=== PATIENT | male | born 1960 | race Caucasian/White ===

== ENCOUNTER 2024-01-22 09:10 | Inpatient (IN) | payer BC, SELFPAY ==
--- NOTE | 2024-01-22 | ECG_ITS ---
Test Reason : tachycardia Blood Pressure : / mmHG Vent. Rate : 106 BPM Atrial Rate : 106 BPM P-R Int : 128 ms QRS Dur : 084 ms QT Int : 310 ms P-R-T Axes : 049 -10 027 degrees QTc Int : 411 ms Sinus tachycardia Otherwise normal ECG No previous ECGs available Referred By: Generic ED Physician Electronically Signed By:SYLVIA BARNES MD
--- NOTE | ~2024-01-22 | XR_ITS ---
EXAMINATION: XR CHEST CLINICAL INFORMATION: NG tube placement. COMPARISON: CT abdomen/pelvis done earlier the same day. TECHNIQUE: Frontal view of the chest was obtained. FINDINGS: Enterogastric tube with the tip in the region of the gastric fundus. Redemonstration of dilated upper abdominal bowel loops. No airspace consolidation. No pleural effusion or pneumothorax. Unremarkable cardiomediastinal silhouette. XR/XR chest 1V IMPRESSION: 1. Enterogastric tube with the tip in the region of the gastric fundus. 2. Redemonstration of dilated upper abdominal bowel loops. Electronically signed by: Victor Hugo Li MD 01/22/2024 07:38 PM [facility]
--- NOTE | ~2024-01-22 | CT_ITS ---
EXAMINATION: CT ABDOMEN AND PELVIS WITH CONTRAST CLINICAL INFORMATION: Abdominal pain COMPARISON: None available. TECHNIQUE: Multidetector volumetric images were obtained from the superior aspect of the liver through the pubic symphysis following administration 85 mL of Omnipaque 350 intravenous contrast. Sagittal and coronal reformatted images were obtained on the technologist's workstation. Oral contrast: No This CT examination was performed using dose optimization techniques as appropriate, variously including the following: *Automated exposure control *Adjustment of mA and/or kV according to patient size (this includes techniques or standardized protocols for targeted exams where dose is matched to indication/reason for exam; i.e. extremities or head) *Use of iterative reconstruction technique DLP: 603 mGy-cm FINDINGS: LUNG BASES: The visualized lung bases are unremarkable. LIVER, GALLBLADDER, AND BILIARY TREE: The liver is normal in size, shape, and attenuation. No focal hepatic lesion or biliary ductal dilatation is present. The gallbladder is unremarkable with no evidence of radiopaque gallstones, gallbladder wall thickening, or obvious pericholecystic inflammatory changes. PANCREAS: Unremarkable. SPLEEN: Unremarkable. ADRENAL GLANDS: Unremarkable. KIDNEYS AND URETERS: No calcification or suspicious mass or hydronephrosis. There is a small simple cyst in the lower pole left kidney at 6 mm which no further workup is needed. BLADDER: Unremarkable. GASTROINTESTINAL TRACT: Abnormal. There is a bowel obstruction present. Dilated small and large bowel is observed, extending down to the sigmoid colon, where a solid mass is encountered. 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 Colonoscopy advised. ABDOMINAL WALL: No significant hernia is appreciated. LYMPH NODES: There is some duskiness and heterogeneity in the perisigmoid fat discrete nodes are not seen. A few small subcentimeter left para-aortic nodes are observed. VASCULAR: There are atherosclerotic but not aneurysmal. PELVIC VISCERA: Unremarkable. OSSEOUS STRUCTURES: Degenerative change in the spine. CT/CT abdomen pelvis w IV con IMPRESSION: Sigmoid mass as described above, with proximal large and small bowel obstruction. Malignancy suspected until proven otherwise. Colonoscopy is advised. Fleischner guidelines were followed. Electronically signed by: Ramesh Huerta MD 01/22/2024 02:22 PM [facility]
[2024-01-22 09:32] VITALS: BP 120/92; PULSE 113; RESP 20; TEMP 36.4; O2SAT 99; BMI 22.0
--- NOTE | 2024-01-22 09:59 | ED_ITS ---
HPI - Abdominal Pain General Chief Complaint: Abdominal Pain Stated Complaint: Constipation, SOB Time Seen by Provider: 01/22/24 09:52 Source: patient Mode of arrival: ambulatory Limitations: no limitations History of Present Illness HPI narrative: THIS IS A VERY PLEASANT 62 YEARS OLD MALE PRESENTED TO THE EMERGENCY DEPARTMENT COMPLAINING OF BLOATING POOR P.O. INTAKE NAUSEA SINCE DATE. HE HAS A HISTORY OF ALCOHOL ABUSE BUT STP DRINKING FOR 2 WEEKS MD elicited complaint: abdominal pain Pertinent past history: other (BLOATING) Onset (ago): week(s) (2) Pain Consistency: constant Quality: cramping Migration to: no migration Exacerbating factors: nothing Associated symptoms: nausea Related Data Home Medications ?Medication ?Instructions ?Recorded ?Confirmed multivitamin 1 tab PO DAILY 01/22/24 01/22/24 Allergies Allergy/AdvReac Type Severity Reaction Status Date / Time No Known Allergies Allergy Verified 01/22/24 09:34 Review of Systems Eyes: Reports no additional eye complaints Cardiovascular: Reports no additional cardiovascular complaints Gastrointestinal: Reports as per HPI and Reports no additional gastrointestinal complaints [facility] Social History Social History Advance Directives: No Advance Directives Information Provided: Yes Physical Exam ED Vital Signs: Vital Signs - 24 hr 01/22/24 09:32 01/22/24 12:15 01/22/24 14:33 Temperature 97.5 F 98.2 F Pulse Rate 113 H 100 89 Respiratory Rate 20 12 13 Blood Pressure 120/92 H 122/76 123/71 Pulse Oximetry 99 98 97 Oxygen Delivery Method Room Air Room Air BMI result Body Mass Index 22.0 NO ACUTE DISTRESS Const General: cooperative Nutritional Appearance: average body habitus Limitations: no limitations HENMT Head: Yes normal to inspection Throat: Yes posterior oropharynx normal Neck Neck: Yes normal visual inspection Chest Chest palpation & inspection: normal inspection of the chest Resp Auscultation: clear to auscultation bilaterally Cardio Jugular venous distension: no JVD Rate: regular rate GI Inspection: Yes normal to inspection Palpation (GI): Soft to palpation Auscultation: normal bowel sounds Skin General skin exam: no rashes or lesions noted and elasticity normal Course Reevaluation(s) Reevaluation #1: CT SCAN OF THE ABDOMEN AND PELVIS SHOWED A SIGMOID MASS WITH PROXIMAL LARGE AND SMALL BOWEL OBSTRUCTION SPOKE WITH SURGERY Time: 14:43 Medical Decision Making Medical Decision Making MDM Narrative: PATIENT PRESENTED WITH BLOATING AND POOR P.O. INTAKE WILL CHECK LABS CT Differential Diagnosis Differential Diagnoses: The differential diagnosis associated with the presentation includes ASCITES/COLITIS/DIVERTICULITIS Admission/Observation Consideration of admission/observation: Escalation of care including admission/observation considered Consult Healthcare Provider Management of the patient was discussed with: [employer] BOX Lab Data MDM Lab Attestation statement: I reviewed the patient's lab results. 01/22/24 10:06 01/22/24 10:06 Labs: Lab Results 01/22/24 Range/Units 10:06 WBC 12.4 H (4.8-10.8) X10*3/uL RBC 5.36 (4.60-5.80) X10*6/uL Hgb 18.3 H (14.0-18.0) g/dl Hct 52.6 H (42.0-52.0) % MCV 98.1 H (80.0-98.0) fL MCH 34.1 H (27.0-33.0) pg MCHC 34.8 (31.0-36.0) g/dl RDW 11.6 (11.0-16.0) % Plt Count 489 H (160-400) X10*3/uL MPV 8.1 L (9.4-12.4) fL Immature Gran % (Auto) 0.5 H (0.0-0.4) % Neut % (Auto) 76.0 H (45-73) % Lymph % (Auto) 12.6 L (20-40) % [place] % (Auto) 9.8 (2-11) % Eos % (Auto) 0.5 (0-4) % Baso % (Auto) 0.6 (0-2) % Lymph # (Auto) 1.6 (1.2-4.9) X10*3/uL [place] # (Auto) 1.2 (0.1-1.2) X10*3/uL Eos # (Auto) 0.1 (0.0-0.4) X10*3/uL Baso # (Auto) 0.1 (0.0-0.2) X10*3/uL Abs Immat Gran (auto) 0.06 H (0.00-0.03) X10*3/uL Absolute Neuts (auto) 9.4 H (2.0-8.3) x10*3/uL Absolute Nucleated RBC 0.000 (0.0-0.012) X10*3/uL Nucleated RBC % (auto) 0.0 (0.0-0.2) /100WBC Sodium 137 (135-145) mmol/L Potassium 4.1 (3.3-5.1) mmol/L Chloride 97 (96-108) mmol/L Carbon Dioxide 26 (22-29) mmol/L Anion Gap 18 (12-20) BUN 18 H (9-16) mg/dL Creatinine 1.25 (0.5-1.4) mg/dL Estim Creat Clear Calc 56.2 Estimated GFR 58 Random Glucose 103 (60-115) mg/dL Calcium 10.3 H (8.4-10.2) mg/dL Total Bilirubin 1.0 (0.0-1.0) mg/dL AST 23 (5-37) U/L ALT 10 (0-40) U/L Alkaline Phosphatase 66 (39-117) U/L Ammonia 29 (13-55) umol/L Total Protein 7.5 (6.5-8.0) g/dL Albumin 3.5 (3.5-5.0) g/dL Lipase 86 H (8-78) U/L Independent Interpretation I performed an independent interpretation of an: CT Scan Interpretation: I PERSONALLY REVIEW INTERPRETED CT SCAN SMALL BOWEL OBSTRUCTION Radiology Impression Discussion of test interpretation with radiology: I have reviewed the radiologist's reading. Radiologist Impression: ABDOMINAL WALL: No significant hernia is appreciated. LYMPH NODES: There is some duskiness and heterogeneity in the perisigmoid fat discrete nodes are not seen. A few small subcentimeter left para-aortic nodes are observed. VASCULAR: There are atherosclerotic but not aneurysmal. PELVIC VISCERA: Unremarkable. OSSEOUS STRUCTURES: Degenerative change in the spine. CT/CT abdomen pelvis w IV con IMPRESSION: Sigmoid mass as described above, with proximal large and small bowel obstruction. Malignancy suspected until proven otherwise. Colonoscopy is advised. Fleischner guidelines were followed. Electronically signed by: Ramesh Huerta MD 01/22/2024 02:22 PM [facility] Chronic Conditions ALCOHOLISM Medications Administered Discontinued Medications Generic Name Dose Route Start Last Admin Trade Name Freq PRN Reason Stop Dose Admin Sodium Chloride 1,000 mls @ 999 mls/hr 01/22/24 10:00 01/22/24 10:35 Ns IVCONT 01/22/24 11:00 999 mls/hr .Q1H1M [facility]O Administration Iohexol 85 ml 01/22/24 11:05 01/22/24 11:05 Iohexol 350 Mg/Ml 100 Ml Infus..Btl IV 01/22/24 11:06 85 ml ONCE ONE Administration Ondansetron HCl 4 mg 01/22/24 09:57 01/22/24 10:35 Ondansetron Hcl 4 Mg/2 Ml Vial IVPUSH 01/22/24 09:58 4 mg ONCE ONE Administration Discharge Plan Discharge Clinical Impression: SBO (small bowel obstruction), Large bowel obstruction Patient Disposition: Admitted As Inpatient
[2024-01-22 10:14] LABS: MANUAL DIFF FLAG NO
[2024-01-22 10:15] LABS: Basophils Absolute Auto 0.1 X10*3/uL (0.0-0.2); Basophils Percent Auto 0.6 % (0-2); Eosinophils Absolute Auto 0.1 X10*3/uL (0.0-0.4); Eosinophils Percent Auto 0.5 % (0-4); Hematocrit 52.6 % (42.0-52.0); Hemoglobin 18.3 g/dl (14.0-18.0); Imm Gran Abs Auto 0.06 X10*3/uL (0.00-0.03); Imm Gran Pct Auto 0.5 % (0.0-0.4); Lymphocytes Absolute Auto 1.6 X10*3/uL (1.2-4.9); Lymphocytes Percent Auto 12.6 % (20-40); Mean Corpuscular HGB Conc 34.8 g/dl (31.0-36.0); Mean Corpuscular Hemoglobin 34.1 pg (27.0-33.0); Mean Corpuscular Volume 98.1 fL (80.0-98.0); Mean Platelet Volume 8.1 fL (9.4-12.4); Monocytes Absolute Auto 1.2 X10*3/uL (0.1-1.2); Monocytes Percent Auto 9.8 % (2-11); Neutrophils Absolute Auto 9.4 x10*3/uL (2.0-8.3); Platelet Count 489 X10*3/uL (160-400); Red Blood Count 5.36 X10*6/uL (4.60-5.80); Red Cell Distribution Width 11.6 % (11.0-16.0); White Blood Count 12.4 X10*3/uL (4.8-10.8)
[2024-01-22 10:21] LABS: Ammonia 29 umol/L (13-55)
[2024-01-22 10:29] LABS: Lipase 86 U/L (8-78)
[2024-01-22 10:31] LABS: Alanine Aminotransferase 10 U/L (0-40); Albumin Level 3.5 g/dL (3.5-5.0); Alkaline Phosphatase 66 U/L (39-117); Anion Gap 18 (12-20); Aspartate Amino Transferase 23 U/L (5-37); Blood Urea Nitrogen 18 mg/dL (9-16); Calcium 10.3 mg/dL (8.4-10.2); Carbon Dioxide 26 mmol/L (22-29); Chloride 97 mmol/L (96-108); Creatinine Clr Calc Pharmacy 56.2; Estimated Glomerular Filt Rate 58; Glucose Random 103 mg/dL (60-115); Potassium 4.1 mmol/L (3.3-5.1); Sodium 137 mmol/L (135-145); Total Protein 7.5 g/dL (6.5-8.0)
[2024-01-22] MEDS: ondansetron HCL 4 MG/2 ML VIAL IVPUSH (10:35)
[2024-01-22] MEDS: 0.9 % Sodium Chloride 1,000 ML 999 ML IVCONT (10:35)
[2024-01-22] MEDS: iohexoL 350 MG/ML 100 ML INFUS..BTL 85 ML IV (11:05)
[2024-01-22 12:15] VITALS: BP 122/76; PULSE 100; RESP 12; O2SAT 98
[2024-01-22 14:33] VITALS: BP 123/71; PULSE 89; RESP 13; TEMP 36.8; O2SAT 97
--- NOTE | 2024-01-22 15:02 | PHA.MEDREC ---
Addendum entered by Alberto Motley RPh 01/22/24 16:50: MED REC CHECKED BY [facility] Original Note: Pharmacy Consult ? Medication Reconciliation Pharmacy has completed the medication reconciliation. Patient confirmed he is only taking a Multivitamin tablet once daily and he confirmed he took it this morning.
[2024-01-22 16:08] VITALS: BP 126/77; PULSE 98; RESP 18; TEMP 36.6; O2SAT 96
--- NOTE | 2024-01-22 16:09 | PC.NURSE ---
rsting quietly. abd only hurts with movement. is aware of NPO status. last po was this am with pills. abd is distended. dry MM. nsr on monitor.
[2024-01-22] MEDS: 0.9 % Sodium Chloride Flush 3 ML SYRINGE IVFLUSH (16:13)
[2024-01-22] MEDS: 0.9 % Sodium Chloride 1,000 ML 100 ML IVCONT (16:13)
[2024-01-22 16:46] VITALS: BP 135/82; PULSE 96; RESP 20; TEMP 37.2; O2SAT 97
--- NOTE | 2024-01-22 18:37 | P.HPGS_ITS ---
History of Present Illness History of Present Illness Date of Service: 01/22/24 Chief complaint: abdo pain Narrative: George Caldwell is a 63 year old male who came into the emergency room because he was feeling distended offloaded not feeling well. Patient says he has not had a bowel movement in a week to 2 and has not really eaten very much since . He said he spent giving throwing up and he has been surviving on little sips of the liquids and antacid medication. He says he has been having terrible heartburn reflux disease. Here in the emergency room his abdomen was distended high-pitched bowel sounds and a CT scan of the abdomen and pelvis was carried out which reveals distended dilated small bowel and colon up to the sigmoid area where there appears to be a significant mass concerning for malignancy. Patient has not been passing gas for a couple of days and says that he has lost some significant weight this year. He says about 2 years ago he was over 200 and something lb and now he is down to 140 lb. He denies any blood per rectum. He was supposed to have had a colonoscopy couple years ago but did not do it said he check and out. No significant family history of colon cancer. He does smoke and he consumes moderate alcohol. He says he has not really smoked or drank in the last 2 weeks. Review of Systems Review of Systems: Yes all other systems are reviewed and are negative [facility] Social History Social History Alcohol intake: former Patient Tobacco Use Status: Current everyday Tobacco user Smoked in Last 30 Days: Yes Use of substances other than those prescribed or required for medical reasons: No Advance Directives: No Advance Directives Information Provided: Yes Nutrition Risks: No Nutritional Risk Meds Allergies Allergy/AdvReac Type Severity Reaction Status Date / Time No Known Allergies Allergy Verified 01/22/24 09:34 Active Medications: Current Medications Acetaminophen (Acetaminophen 325 Mg Tablet) 650 mg PO Q6H PRN PRN Reason: Pain, Mild (Pain Scale 1-3), fever or headache Benzocaine (Throat Lozenge, Medicated Lozenge) 1 lozenge MUCOUS MEM Q2H PRN PRN Reason: Sore Throat Sodium Chloride (Ns) 1,000 mls @ 100 mls/hr IVCONT .Q10H [facility] Last Admin: 01/22/24 16:13 Dose: 100 mls/hr Lidocaine HCl (Lidocaine Hcl Viscous 2 % 15 Ml Solution) 15 ml MUCOUS MEM Q3H PRN PRN Reason: Pain, Mild (Pain Scale 1-3) Melatonin (Melatonin 3 Mg Tablet) 6 mg PO BEDTIME PRN PRN Reason: Insomnia Morphine Sulfate (Morphine Sulfate 4 Mg/Ml Cartridge) 3 mg IVPUSH Q4H PRN; Protocol PRN Reason: Pain, Severe (Pain Scale 7-10) Ondansetron HCl (Ondansetron Hcl 4 Mg/2 Ml Vial) 4 mg IVPUSH Q8H PRN PRN Reason: Nausea and Vomiting Sodium Chloride (0.9 % Sodium Chloride Flush 3 Ml Syringe) 3 ml IVFLUSH QSHIFT [facility] Last Admin: 01/22/24 16:13 Dose: 3 ml Home Medications ?Medication ?Instructions ?Recorded ?Confirmed ?Last Taken ?Type multivitamin 1 tab PO DAILY 01/22/24 01/22/24 01/22/24 History Physical Exam Vital Signs: Vital Signs: Last Vital Signs Temp 98.9 F 01/22/24 16:46 Pulse 96 01/22/24 16:46 Resp 20 01/22/24 16:46 BP 135/82 01/22/24 16:46 Pulse Ox 97 01/22/24 16:46 O2 Del Method Room Air 01/22/24 16:46 BMI result Body Mass Index 22.0 Const: General: cooperative and in distress mild Nutritional Appearance: thin Orientation/consciousness: patient oriented x3 HEENT: Head: Yes normal to inspection Resp: Effort & Inspection: normal respiratory effort Auscultation: clear to auscultation bilaterally Cardio: Rate: regular rate Rhythm: regular rhythm GI: Other: Abdomen is soft distended tympanitic hypoactive bowel sounds with some rushes nontender Skin: Other: Nonicteric Neuro: General: patient oriented x3 Extrem: General: Yes normal to inspection and Yes full ROM Psych: Appearance: grossly normal Mental Status: mental status grossly normal Speech and movement: Normal speech and movement present Affect: normal affect Attitude: cooperative Thought process: Normal thought process present Thought content: Normal thought content present Insight: Good insight present (Psych) Judgement: Good judgement present (Psych) Results Results Labs: Short CBC 01/22/24 Range/Units 10:06 WBC 12.4 H (4.8-10.8) X10*3/uL Hgb 18.3 H (14.0-18.0) g/dl Hct 52.6 H (42.0-52.0) % Plt Count 489 H (160-400) X10*3/uL BMP 01/22/24 10:06 Sodium 137 Potassium 4.1 Chloride 97 Carbon Dioxide 26 BUN 18 H Creatinine 1.25 Calcium 10.3 H Liver Function 01/22/24 Range/Units 10:06 Total Bilirubin 1.0 (0.0-1.0) mg/dL AST 23 (5-37) U/L ALT 10 (0-40) U/L Alkaline Phosphatase 66 (39-117) U/L Albumin 3.5 (3.5-5.0) g/dL Abdomen CT scan report/results: report reviewed and image reviewed CT scan - pelvis: report reviewed and image reviewed Additional studies: Ordering Physician: Fernando Elena MD Date of Service: 01/22/24 Procedure(s): CT abdomen pelvis w IV con Accession Number(s): [id number] cc: Fernando Elena MD; Jo Sheehan MD~ EXAMINATION: CT ABDOMEN AND PELVIS WITH CONTRAST CLINICAL INFORMATION: Abdominal pain COMPARISON: None available. TECHNIQUE: Multidetector volumetric images were obtained from the superior aspect of the liver through the pubic symphysis following administration 85 mL of Omnipaque 350 intravenous contrast. Sagittal and coronal reformatted images were obtained on the technologist's workstation. Oral contrast: No This CT examination was performed using dose optimization techniques as appropriate, variously including the following: *Automated exposure control *Adjustment of mA and/or kV according to patient size (this includes techniques or standardized protocols for targeted exams where dose is matched to indication/reason for exam; i.e. extremities or head) *Use of iterative reconstruction technique DLP: 603 mGy-cm FINDINGS: LUNG BASES: The visualized lung bases are unremarkable. LIVER, GALLBLADDER, AND BILIARY TREE: The liver is normal in size, shape, and attenuation. No focal hepatic lesion or biliary ductal dilatation is present. The gallbladder is unremarkable with no evidence of radiopaque gallstones, gallbladder wall thickening, or obvious pericholecystic inflammatory changes. PANCREAS: Unremarkable. SPLEEN: Unremarkable. ADRENAL GLANDS: Unremarkable. KIDNEYS AND URETERS: No calcification or suspicious mass or hydronephrosis. There is a small simple cyst in the lower pole left kidney at 6 mm which no further workup is needed. BLADDER: Unremarkable. GASTROINTESTINAL TRACT: Abnormal. There is a bowel obstruction present. Dilated small and large bowel is observed, extending down to the sigmoid colon, where a solid mass is encountered. 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 Colonoscopy advised. ABDOMINAL WALL: No significant hernia is appreciated. LYMPH NODES: There is some duskiness and heterogeneity in the perisigmoid fat discrete nodes are not seen. A few small subcentimeter left para-aortic nodes are observed. VASCULAR: There are atherosclerotic but not aneurysmal. PELVIC VISCERA: Unremarkable. OSSEOUS STRUCTURES: Degenerative change in the spine. CT/CT abdomen pelvis w IV con IMPRESSION: Sigmoid mass as described above, with proximal large and small bowel obstruction. Malignancy suspected until proven otherwise. Colonoscopy is advised. Fleischner guidelines were followed. Electronically signed by: Ramesh Huerta MD 01/22/2024 02:22 PM [facility] Dictated By: Ramesh Huerta MD Signed By: <Electronically signed by Ramesh Huerta MD in OV> 01/22/24 1422 DD/ 1100 TD/TT: 01/22/24 1125 Customer Expert: Assessment and Plan (1) Large bowel obstruction: Status: Acute Plan 63-year-old male with large bowel obstruction signs and symptoms are consistent with that and CT scan of his abdomen and pelvis reveals suspicious lesion in his lower sigmoid colon suspicious for malignancy. Plan to admit NPO NG tube IV fluid resuscitation. Consider GI consult for sigmoid scope with biopsies. Patient can not be prepped secondary to the obstruction. Most likely will need sigmoid resection with colostomy creation. CT scan does not reveal any obvious metastatic disease at this point. All of this was extensively discussed with the patient who understands and agrees with the above plan Quality Stroke Does the patient have a stroke diagnosis?: No VTE Prior VTE?: No VTE Risk Level:: Surgical - moderate VTE Device Contraindication: N/A - Device Ordered VTE Drug Contraindication: N/A - Med Ordered Procedures Date of Service Date of Service: 01/22/24
--- NOTE | 2024-01-22 18:46 | PC.NURSE ---
16F NG tube placed in R nare by Dr. Vargas, pt tolerated well. approx 450 cc output imediately after placement. moved pt to overflow room 4 with intermittent suction.
[2024-01-22 21:04] VITALS: BP 135/79; PULSE 92; RESP 14; TEMP 36.6; O2SAT 97
[2024-01-23] VITALS (10 sets, daily range): BP systolic 128–150; BP diastolic 72–99; PULSE 78–95; RESP 16–18; TEMP 36.2–37.1; O2SAT 93–97; BMI 22.0; BMI 22.3
[2024-01-23] MEDS: 0.9 % Sodium Chloride 1,000 ML 100 ML IVCONT ×3 (01:48→23:23)
[2024-01-23 04:53] LABS: Anion Gap 21 (12-20); Blood Urea Nitrogen 18 mg/dL (9-16); Calcium 9.8 mg/dL (8.4-10.2); Carbon Dioxide 25 mmol/L (22-29); Chloride 102 mmol/L (96-108); Creatinine Clr Calc Pharmacy 62.2; Estimated Glomerular Filt Rate > 60; Glucose Random 78 mg/dL (60-115); Potassium 4.1 mmol/L (3.3-5.1); Sodium 144 mmol/L (135-145)
--- NOTE | 2024-01-23 07:25 | P.PNGS_ITS ---
Subjective Subjective Date of Service: 01/23/24 Interval history: Patient evaluated this morning. Complete large bowel obstruction. Patient has had occasional bloody bowel movements for over a year. Has never had colonoscopy before. Has had significant weight loss (50 lb) over the last year and a half but he said that this was done for weight control. Physical Exam 2 Vital Signs: Vital Signs: Last Vital Signs Temp 97.8 F 01/23/24 05:44 Pulse 95 01/23/24 05:44 Resp 18 01/23/24 05:44 BP 134/79 01/23/24 05:44 Pulse Ox 96 01/23/24 05:44 O2 Del Method Room Air 01/23/24 05:44 BMI result Body Mass Index 22.0 GI: Other: Markedly distended abdomen. Mild diffuse periumbilical tenderness. No evidence of any guarding, rebound, or rigidity Objective Data Active Medications Acetaminophen (Acetaminophen 325 Mg Tablet) 650 mg PO Q6H PRN PRN Reason: Pain, Mild (Pain Scale 1-3), fever or headache Benzocaine (Throat Lozenge, Medicated Lozenge) 1 lozenge MUCOUS MEM Q2H PRN PRN Reason: Sore Throat Sodium Chloride (Ns) 1,000 mls @ 100 mls/hr IVCONT .Q10H [facility] Last Admin: 01/23/24 01:48 Dose: 100 mls/hr Documented By: PATRICIA Lidocaine HCl (Lidocaine Hcl Viscous 2 % 15 Ml Solution) 15 ml MUCOUS MEM Q3H PRN PRN Reason: Pain, Mild (Pain Scale 1-3) Melatonin (Melatonin 3 Mg Tablet) 6 mg PO BEDTIME PRN PRN Reason: Insomnia Morphine Sulfate (Morphine Sulfate 4 Mg/Ml Cartridge) 3 mg IVPUSH Q4H PRN; Protocol PRN Reason: Pain, Severe (Pain Scale 7-10) Ondansetron HCl (Ondansetron Hcl 4 Mg/2 Ml Vial) 4 mg IVPUSH Q8H PRN PRN Reason: Nausea and Vomiting Sodium Chloride (0.9 % Sodium Chloride Flush 3 Ml Syringe) 3 ml IVFLUSH QSHIFT [facility] Last Admin: 01/23/24 07:25 Dose: Not Given Documented By: MARIBEL Non-Admin Reason: IV Running Labs 01/22/24 10:06 01/23/24 03:59 Labs: Laboratory Results - last 24 hr 01/22/24 01/23/24 10:06 03:59 MCV 98.1 H MCH 34.1 H MCHC 34.8 RDW 11.6 Plt Count 489 H MPV 8.1 L Immature Gran % (Auto) 0.5 H Neut % (Auto) 76.0 H Lymph % (Auto) 12.6 L [place] % (Auto) 9.8 Eos % (Auto) 0.5 Baso % (Auto) 0.6 Lymph # (Auto) 1.6 [place] # (Auto) 1.2 Eos # (Auto) 0.1 Baso # (Auto) 0.1 Abs Immat Gran (auto) 0.06 H Absolute Neuts (auto) 9.4 H Absolute Nucleated RBC 0.000 Nucleated RBC % (auto) 0.0 Anion Gap 18 21 H Estim Creat Clear Calc 56.2 62.2 Estimated GFR 58 > 60 Random Glucose 103 78 Calcium 10.3 H 9.8 Total Bilirubin 1.0 AST 23 ALT 10 Alkaline Phosphatase 66 Ammonia 29 Total Protein 7.5 Albumin 3.5 Lipase 86 H Carcinoembryonic Ag 6.20 Procedures Date of Service Date of Service: 01/23/24 Progress Note: A&P Assessment and plan (1) Large bowel obstruction: Status: Acute (2) Colonic mass: Status: Acute Plan Discussed these findings with the patient. He has a complete large bowel obstruction involving sigmoid colon. He requires surgical intervention in the form of exploratory laparotomy, sigmoid resection, and ostomy. I reviewed with him that because he is unable to have his bowel prepped, it would not be safe to attempt and anastomosis and an ostomy is required for his situation. Risks, benefits, alternatives of the procedure were extensively reviewed with the patient included but not limited to bleeding, infection, numbness, pain, scarring, ostomy issues and the patient wishes to proceed. All questions answered. He will be placed as an add on case for today. Time Spent With Patient Time: Total time managing care of this patient today ____ minutes. Quality Stroke Does the patient have a stroke diagnosis?: No VTE Prior VTE?: No VTE Risk Level:: Surgical - moderate VTE Device Contraindication: N/A - Device Ordered VTE Drug Contraindication: N/A - Med Ordered
--- NOTE | 2024-01-23 11:10 | PC.NURSE ---
Pt to pre-op at ~11:10. All belongings sent with pt as he will be tx to [facility]m 367 after surgery. Admission worksheet completed
--- NOTE | 2024-01-23 11:14 | HO.OSTOMY ---
Ostomy consult: Site Rick Initial consult 63yr old [place] [facility] [place]. Patient seen on the ED overflow unit for brief pre-operative ostomy teaching and stoma site selection/marking. ?The patient was instructed in very basic GI anatomy and stoma creation, and teaching to be available after surgery should a stoma be created. ?Instruction was given on the purpose of pre-operative stoma site selection and marking: ?the importance of identifying a location within sight, avoiding creases on a relatively flat area of the abdomen, and siting within the large muscle of the abdomen for support. ?He agreed with the procedure. The patient's abdomen was visualized and palpated in the sitting, standing, bending, and lying positions. ?The margins of the rectus abdominis muscles were identified, and sites were marked in the LUQ within the margins. ?The patients pant location was taken into consideration when marking. ?He has a horizontal crease at the umbilicus and he was marking accordingly - I also took into consideration a midline incision and marked accordingly for surgeon visibility in the OR. The sites were cleansed with alcohol prep pads before marking, marked with sterile surgical marker. ? Follow up teaching by ostomy nurse when appropriate. Please re-consult after surgery for timely teaching. ?Thank you.
--- NOTE | 2024-01-23 12:12 | HO.ANESPROP2 ---
HPI - Anesthesia Eval Consult details Narrative: for Elap for bowel obstruction PMFSH Active Problems Active Problems: All Active Problems Colonic mass (Acute) Large bowel obstruction (Acute) SBO (small bowel obstruction) (Acute) Family History Family history of problems with anesthesia: No Surgical History History of Problems with Anesthesia: No Social History Social History Household Members: None Housing: Apartment Do you presently have visiting nurse or other home services: No Alcohol intake: former Patient Tobacco Use Status: Current everyday Tobacco user Tobacco use type: Cigarette Cigarette Packs Per Day: 1 Cigarettes Per Day: 20.0 Years Smoked: 40 e-Cigarette/Vaping Use: Currently Using Substance Use Type: Marijuana Meds Allergies Allergy/AdvReac Type Severity Reaction Status Date / Time No Known Allergies Allergy Verified 01/22/24 09:34 Active Medications: Current Medications Acetaminophen (Acetaminophen 325 Mg Tablet) 650 mg PO Q6H PRN PRN Reason: Pain, Mild (Pain Scale 1-3), fever or headache Benzocaine (Throat Lozenge, Medicated Lozenge) 1 lozenge MUCOUS MEM Q2H PRN PRN Reason: Sore Throat Sodium Chloride (Ns) 1,000 mls @ 100 mls/hr IVCONT .Q10H [facility] Last Admin: 01/23/24 01:48 Dose: 100 mls/hr Lidocaine HCl (Lidocaine Hcl Viscous 2 % 15 Ml Solution) 15 ml MUCOUS MEM Q3H PRN PRN Reason: Pain, Mild (Pain Scale 1-3) Melatonin (Melatonin 3 Mg Tablet) 6 mg PO BEDTIME PRN PRN Reason: Insomnia Morphine Sulfate (Morphine Sulfate 4 Mg/Ml Cartridge) 3 mg IVPUSH Q4H PRN; Protocol PRN Reason: Pain, Severe (Pain Scale 7-10) Ondansetron HCl (Ondansetron Hcl 4 Mg/2 Ml Vial) 4 mg IVPUSH Q8H PRN PRN Reason: Nausea and Vomiting Sodium Chloride (0.9 % Sodium Chloride Flush 3 Ml Syringe) 3 ml IVFLUSH QSHIFT [facility] Last Admin: 01/23/24 07:25 Dose: Not Given Home Medications ?Medication ?Instructions ?Recorded ?Confirmed ?Last Taken ?Type multivitamin 1 tab PO DAILY 01/22/24 01/22/24 01/22/24 History Exam Height,Weight and Vital Signs: Height 5 ft 8 in Weight 66.678 kg Last Vital Signs Temp 98.8 F 01/23/24 11:29 Pulse 92 01/23/24 11:29 Resp 16 01/23/24 11:29 BP 135/79 01/23/24 11:29 Pulse Ox 97 01/23/24 11:29 O2 Del Method Room Air 01/23/24 11:29 Pertinent Lab Results Pertinent Lab Results: Laboratory Tests 01/22/24 01/23/24 10:06 03:59 WBC 12.4 H RBC 5.36 Hgb 18.3 H Hct 52.6 H MCV 98.1 H MCH 34.1 H MCHC 34.8 RDW 11.6 Plt Count 489 H MPV 8.1 L Immature Gran % (Auto) 0.5 H Neut % (Auto) 76.0 H Lymph % (Auto) 12.6 L [place] % (Auto) 9.8 Eos % (Auto) 0.5 Baso % (Auto) 0.6 Lymph # (Auto) 1.6 [place] # (Auto) 1.2 Eos # (Auto) 0.1 Baso # (Auto) 0.1 Abs Immat Gran (auto) 0.06 H Absolute Neuts (auto) 9.4 H Absolute Nucleated RBC 0.000 Nucleated RBC % (auto) 0.0 Sodium 137 144 Potassium 4.1 4.1 Chloride 97 102 Carbon Dioxide 26 25 Anion Gap 18 21 H BUN 18 H 18 H Creatinine 1.25 1.13 Estim Creat Clear Calc 56.2 62.2 Estimated GFR 58 > 60 Random Glucose 103 78 Calcium 10.3 H 9.8 Total Bilirubin 1.0 AST 23 ALT 10 Alkaline Phosphatase 66 Ammonia 29 Total Protein 7.5 Albumin 3.5 Lipase 86 H Carcinoembryonic Ag 6.20 Airway Mallampati Class: I TM Dist: >3cm Neck ROM: Full Denture: Upper and Lower Heart: ok Lungs: ok Assessment and Plan Assessment Anesthesia Assessment: Anesthesia Plan Discussed and Chart Reviewed Final Anesthetic Review Family History of Problems with Anesthesia: No History of Problems with Anesthesia: No NPO: Yes ASA Class: III Final Preanesthetic Review: No Changes in Pt Med Stat, Meds/Allgs Chart Reviewed, Consent Obtained/Reviewed and Anes Risks/Benef Reviewed Patient Risk: High Procedure Risk: Intermediate Anesthetic Plan Anesthetic Plan: GA and Agree w/ Assess. and Plan Disposition: Standard PACU
--- NOTE | 2024-01-23 13:40 | W.PM.OPN ---
Operative Note Operative Note Date of Service: 01/23/24 Colon Resection Tumor location: Sigmoid colon Extent of lymphovascular resection Sigmoid colon: Extensive lymphadenectomy Procedure performed with curative intent?: Yes General Surg. - Synoptic Notes Colon Resection Tumor location: Sigmoid colon Extent of Lymphovascular Resection: Sigmoid colon: Extensive lymphadenectomy Procedure performed with curative intent?: Yes
--- NOTE | 2024-01-23 13:41 | P.OP_ITS ---
Operative Note Operative Note Date of Service: 01/23/24 Narrative: Preoperative diagnosis: [] Large bowel complete obstruction, sigmoid colon mass Postop diagnosis: [] The same Procedure [] exploratory laparotomy, takedown splenic flexure, sigmoid resection, end colostomy, Valorie's pouch Surgeon: [] Kristian Assistant Corporate Controller: [] Terence Type of Anesthesia: [] General Indication for surgery: [] Patient has in the enormous baseball sized mass involving the mid sigmoid colon causing a complete large bowel obstruction and small-bowel obstruction secondary to incompetence of the ileocecal valve. No other gross intra-abdominal pathology demonstrated. Procedure was performed with curative intent. Patient had massively dilated proximal colon secondary to the obstruction as well as dilated small bowel. Findings: [] Patient brought to the operating room, placed on operative table supine position, after an adequate level of general anesthesia was induced, the patient's abdomen was prepped and draped in usual sterile fashion. Patient underwent regional block per anesthesia and then the abdomen was approached using an infraumbilical midline incision. This carried down through skin, subcutaneous tissue, Pari's fascia. Linea alba was opened and extended along the length of the incision. Packs and retractors were placed to enhance exposure. Findings were as noted above. Sigmoid colon/mass was identified and mobilized and brought onto the field. Lateral peritoneal reflection was taken down using Bovie. Transection of the distal sigmoid/rectal junction was performed using PEG stapler. Colon was mobilized to the level of the splenic flexure. The mesentery of the vascular supply/;DERRICK/IMV was taken down using double firing of ligature device. Specimen was then sent to pathology for PERMANENT EVALUATION. Abdominal cavity was irrigated and secured hemostasis. There was minimal if any spillage. The patient had preoperative marking by ostomy nurse for an ostomy site and this was chosen in the left lower quadrant and circular incision was made using B ovie carried down through skin, subcutaneous tissue, with a cruciate incision in the anterior abdominal wall fascia, splitting of abdominal wall musculature and peritoneum entered and proximal colon with the appropriate orientation was brought out through the ostomy site. This was brought out without any tension and was pink and viable. Abdominal cavity was closed in mass closure fascia using 1. Looped PDS followed by interrupted inverted dermal 3-0 Vicryl sutures followed by Steri-Strips and sterile dressings. Ostomy then had its staple line opened using Bovie after the ostomy was secured to the ostomy site using seromuscular to dermal interrupted circumferentially 3-0 Vicryl sutures. Ostomy again was pink, viable, and ostomy appliance placed uneventfully with copious amounts of gas and stool entering the ostomy bag immediately. Sponge, needle, and instrument counts reported correct. Patient tolerated the procedure well and emerged from anesthesia stable condition. EBL minimal
--- NOTE | 2024-01-23 15:24 | MHC.CM.PN ---
PT LIVES ALONE IS INDEPENDENT AND WORKNG HAS OWN RIDE HOME DC PLAN HOME NO SERVIES
[2024-01-23] MEDS: Acetaminophen 1,000 MG/100 ML PIGGYBACK 400 MG IV (18:29)
[2024-01-24] MEDS: Acetaminophen 1,000 MG/100 ML PIGGYBACK 400 MG IV ×4 (03:12→18:34)
[2024-01-24 03:26] VITALS: BP 133/75; PULSE 85; RESP 16; TEMP 36.4; O2SAT 94
[2024-01-24] MEDS: Ketorolac Tromethamine 15 MG/ML VIAL IVPUSH ×3 (06:22→23:54)
[2024-01-24 06:39] LABS: MANUAL DIFF FLAG NO
[2024-01-24 06:55] LABS: Basophils Percent Auto 0.3 % (0-2); Eosinophils Percent Auto 0.2 % (0-4); Hematocrit 45.8 % (42.0-52.0); Imm Gran Abs Auto 0.06 X10*3/uL (0.00-0.03); Imm Gran Pct Auto 0.4 % (0.0-0.4); Lymphocytes Absolute Auto 1.5 X10*3/uL (1.2-4.9); Lymphocytes Percent Auto 10.5 % (20-40); Mean Corpuscular HGB Conc 34.9 g/dl (31.0-36.0); Mean Corpuscular Hemoglobin 34.4 pg (27.0-33.0); Mean Corpuscular Volume 98.5 fL (80.0-98.0); Mean Platelet Volume 8.6 fL (9.4-12.4); Monocytes Absolute Auto 1.1 X10*3/uL (0.1-1.2); Monocytes Percent Auto 8.2 % (2-11); Neutrophils Absolute Auto 11.1 x10*3/uL (2.0-8.3); Neutrophils Percent Auto 80.4 % (45-73); Platelet Count 416 X10*3/uL (160-400); Red Blood Count 4.65 X10*6/uL (4.60-5.80); Red Cell Distribution Width 11.8 % (11.0-16.0); White Blood Count 13.8 X10*3/uL (4.8-10.8)
[2024-01-24 06:57] LABS: Anion Gap 20 (12-20); Blood Urea Nitrogen 17 mg/dL (9-16); Calcium 9.1 mg/dL (8.4-10.2); Carbon Dioxide 20 mmol/L (22-29); Chloride 103 mmol/L (96-108); Creatinine Clr Calc Pharmacy 82.9; Estimated Glomerular Filt Rate > 60; Glucose Fasting 89 mg/dL (60-99); Sodium 139 mmol/L (135-145)
[2024-01-24] MEDS: 0.9 % Sodium Chloride 1,000 ML 100 ML IVCONT ×2 (07:31→21:15)
[2024-01-24 07:49] VITALS: BP 129/74; PULSE 83; RESP 17; TEMP 36.8; O2SAT 95
--- NOTE | 2024-01-24 08:31 | PM.PNGS ---
Subjective Subjective Date of Service: 01/24/24 Interval history: Feels improved this morning, bloating less. C/o incisional pain, relieved with analgesics. Has not been OOB. Has been taking in multiple cups of ice chips. Physical Exam Vital Signs: Vital Signs: Last Vital Signs Temp 98.2 F 01/24/24 07:49 Pulse 83 01/24/24 07:49 Resp 17 01/24/24 07:49 BP 129/74 01/24/24 07:49 Pulse Ox 95 01/24/24 07:49 O2 Del Method Room Air 01/24/24 07:49 O2 Flow Rate 2 01/23/24 14:06 BMI result Body Mass Index 22.3 Const: General: comfortable, no acute distress and alert Orientation/consciousness: patient oriented x3 Resp: Effort & Inspection: normal respiratory effort GI: Other: ostomy with large amount of soft brown stool Inspection: Yes distended (softly, decreased) and Yes incision (dressing intact ) Palpation (GI): Soft to palpation, Tenderness to palpation present (GI) (mild incisional) and no guarding Skin: General skin exam: no rashes or lesions noted Neuro: General: patient oriented x3 and moves all extremities Objective Data Active Medications Benzocaine (Throat Lozenge, Medicated Lozenge) 1 lozenge MUCOUS MEM Q2H PRN PRN Reason: Sore Throat Hydromorphone HCl (Hydromorphone Hcl 1 Mg/Ml Syringe) 1 mg IVPUSH Q4H PRN; Protocol PRN Reason: Pain, Severe (Pain Scale 7-10) Sodium Chloride (Ns) 1,000 mls @ 100 mls/hr IVCONT .Q10H [facility] Last Admin: 01/24/24 07:31 Dose: 100 mls/hr Documented By: KARAN Acetaminophen (Ofirmev) 1,000 mg in 100 mls @ 400 mls/hr IV Q6H [facility] Last Infusion: 01/24/24 07:48 Dose: Infused Documented By: KARAN Ketorolac Tromethamine (Ketorolac Tromethamine 15 Mg/Ml Vial) 15 mg IVPUSH Q6H PRN PRN Reason: Pain, Moderate(Pain Scale 4-6) Last Admin: 01/24/24 06:22 Dose: 15 mg Documented By: EDUARD Lidocaine HCl (Lidocaine Hcl Viscous 2 % 15 Ml Solution) 15 ml MUCOUS MEM Q3H PRN PRN Reason: Pain, Mild (Pain Scale 1-3) Melatonin (Melatonin 3 Mg Tablet) 6 mg PO BEDTIME PRN PRN Reason: Insomnia Ondansetron HCl (Ondansetron Hcl 4 Mg/2 Ml Vial) 4 mg IVPUSH Q8H PRN PRN Reason: Nausea and Vomiting Sodium Chloride (0.9 % Sodium Chloride Flush 3 Ml Syringe) 3 ml IVFLUSH QSHIFT [facility] Last Admin: 01/24/24 07:19 Dose: Not Given Documented By: KARAN Non-Admin Reason: IV Running Labs 01/24/24 06:22 01/24/24 06:22 Labs: Laboratory Results - last 24 hr 01/23/24 01/24/24 11:30 06:22 MCV 98.5 H MCH 34.4 H MCHC 34.9 RDW 11.8 Plt Count 416 H MPV 8.6 L Immature Gran % (Auto) 0.4 Neut % (Auto) 80.4 H Lymph % (Auto) 10.5 L [place] % (Auto) 8.2 Eos % (Auto) 0.2 Baso % (Auto) 0.3 Lymph # (Auto) 1.5 [place] # (Auto) 1.1 Eos # (Auto) 0.0 Baso # (Auto) 0.0 Abs Immat Gran (auto) 0.06 H Absolute Neuts (auto) 11.1 H Absolute Nucleated RBC 0.000 Nucleated RBC % (auto) 0.0 Anion Gap 20 Estim Creat Clear Calc 82.9 Estimated GFR > 60 Fasting Glucose 89 Calcium 9.1 D Blood Type A Positive Antibody Screen NEGATIVE Procedures Date of Service Date of Service: 01/24/24 Progress Note: A&P Assessment and plan (1) Colonic mass: Status: Acute (2) Large bowel obstruction: Status: Acute Plan POD #1 s/p exploratory laparotomy, takedown splenic flexure, sigmoid resection, end colostomy, Valorie's pouch for obstructing sigmoid mass. Overall doing well post op. VSS. Abd exam benign with appropriate post op tenderness. Ostomy with large amount of stool output. NGT without significant output. Good UOP. Will clamp NGT for 4 hrs, check residual. Unclamp sooner if develops nausea, vomiting, bloating, worsening abd pain. Dc leroy. Encouraged OOB/ambulation and IS use. Await pathology. Time Spent With Patient Time: Total time managing care of this patient today ____ minutes. Quality Stroke Does the patient have a stroke diagnosis?: No VTE Prior VTE?: No VTE Risk Level:: Surgical - moderate VTE Device Contraindication: N/A - Device Ordered VTE Drug Contraindication: N/A - Med Ordered
[2024-01-24 12:00] VITALS: BP 140/76; PULSE 80; RESP 17; TEMP 36.8; O2SAT 96
[2024-01-24] MEDS: Famotidine/PF 20 MG in 0.9 % Sodium Chloride 50 ML 200 MG IV (12:13)
--- NOTE | 2024-01-24 12:35 | HO.POSTANES ---
Post Anesthesia Evaluation Post Anesthesia Evaluation Date of Service: 01/24/24 Vital Signs: Vital Signs Temp Pulse Resp BP Pulse Ox O2 Del Method 01/24/24 12:00 98.2 F 80 17 140/76 H 96 Room Air 01/24/24 07:49 98.2 F 83 17 129/74 95 Room Air 01/24/24 03:26 97.6 F 85 16 133/75 94 Room Air Anesthesia: Regional and General Mental Status: Awake Pain Control: Satisfactory Nausea/Vomiting: None Hydration: Adequate Anesthesia-Related Issues: No Anes. Related Issues
[2024-01-24 16:00] VITALS: BP 135/75; PULSE 83; RESP 18; TEMP 37.2; O2SAT 97
[2024-01-24 19:13] VITALS: BP 132/74; PULSE 94; RESP 16; TEMP 36.8; O2SAT 97
[2024-01-24] MEDS: Famotidine/PF 20 MG/2 ML VIAL IVPUSH (23:53)
[2024-01-25] VITALS (7 sets, daily range): BP systolic 116–139; BP diastolic 68–77; PULSE 69–95; RESP 16–20; TEMP 36.4–36.9; O2SAT 96–98
[2024-01-25] MEDS: Acetaminophen 1,000 MG/100 ML PIGGYBACK 400 MG IV ×3 (01:18→18:33)
--- NOTE | 2024-01-25 03:53 | PC.NURSE ---
While emptying stoma bag this am it was noted greyish color on top of the stoma md dr Townsend was notified . Stoma has good output., and passing lots of gas
[2024-01-25 06:20] LABS: MANUAL DIFF FLAG NO
[2024-01-25 06:25] LABS: Basophils Absolute Auto 0.1 X10*3/uL (0.0-0.2); Basophils Percent Auto 0.6 % (0-2); Eosinophils Absolute Auto 0.3 X10*3/uL (0.0-0.4); Eosinophils Percent Auto 1.9 % (0-4); Hematocrit 41.3 % (42.0-52.0); Hemoglobin 14.9 g/dl (14.0-18.0); Imm Gran Abs Auto 0.06 X10*3/uL (0.00-0.03); Imm Gran Pct Auto 0.4 % (0.0-0.4); Lymphocytes Absolute Auto 1.3 X10*3/uL (1.2-4.9); Lymphocytes Percent Auto 8.8 % (20-40); Mean Corpuscular HGB Conc 36.1 g/dl (31.0-36.0); Mean Corpuscular Hemoglobin 35.4 pg (27.0-33.0); Mean Corpuscular Volume 98.1 fL (80.0-98.0); Mean Platelet Volume 8.2 fL (9.4-12.4); Monocytes Percent Auto 6.5 % (2-11); Neutrophils Absolute Auto 12.2 x10*3/uL (2.0-8.3); Neutrophils Percent Auto 81.8 % (45-73); Platelet Count 350 X10*3/uL (160-400); Red Blood Count 4.21 X10*6/uL (4.60-5.80); Red Cell Distribution Width 11.7 % (11.0-16.0); White Blood Count 14.9 X10*3/uL (4.8-10.8)
[2024-01-25] MEDS: 0.9 % Sodium Chloride 1,000 ML 100 ML IVCONT ×2 (06:27→15:33)
[2024-01-25] MEDS: Ketorolac Tromethamine 15 MG/ML VIAL IVPUSH (06:38)
[2024-01-25 06:39] LABS: Anion Gap 16 (12-20); Blood Urea Nitrogen 17 mg/dL (9-16); Calcium 8.6 mg/dL (8.4-10.2); Carbon Dioxide 19 mmol/L (22-29); Chloride 105 mmol/L (96-108); Creatinine Clr Calc Pharmacy 78.3; Estimated Glomerular Filt Rate > 60; Glucose Fasting 70 mg/dL (60-99); Potassium 3.8 mmol/L (3.3-5.1); Sodium 136 mmol/L (135-145)
[2024-01-25] MEDS: Famotidine/PF 20 MG/2 ML VIAL IVPUSH (08:05)
--- NOTE | 2024-01-25 08:31 | PM.PNGS ---
Subjective Subjective Date of Service: 01/25/24 Interval history: Was able to sleep a few hours last night. Pain is medium this morning. Continues to have large amount of stool output from ostomy. OOB to chair without difficulty yesterday. Physical Exam Vital Signs: Vital Signs: Last Vital Signs Temp 97.9 F 01/25/24 07:49 Pulse 84 01/25/24 07:49 Resp 17 01/25/24 07:49 BP 139/77 01/25/24 07:49 Pulse Ox 98 01/25/24 07:49 O2 Del Method Room Air 01/25/24 07:49 O2 Flow Rate 2 01/23/24 14:06 BMI result Body Mass Index 22.3 Const: General: comfortable, no acute distress and alert Orientation/consciousness: patient oriented x3 Resp: Effort & Inspection: normal respiratory effort GI: Other: ostomy with large amount of stool output in appliance, slightly dusky appearing with small amount of mucosal sloughing Inspection: Yes distended (mild, soft) and Yes incision (clean) Palpation (GI): Soft to palpation, Tenderness to palpation present (GI) (mild incisional) and no guarding Skin: General skin exam: no rashes or lesions noted Neuro: General: patient oriented x3 and moves all extremities Objective Data Active Medications Benzocaine (Throat Lozenge, Medicated Lozenge) 1 lozenge MUCOUS MEM Q2H PRN PRN Reason: Sore Throat Famotidine (Famotidine/Pf 20 Mg/2 Ml Vial) 20 mg IVPUSH BID PRN PRN Reason: heartburn Last Admin: 01/25/24 08:05 Dose: 20 mg Documented By: KARAN Comments: MD ospina to give early Hydromorphone HCl (Hydromorphone Hcl 1 Mg/Ml Syringe) 1 mg IVPUSH Q4H PRN; Protocol PRN Reason: Pain, Severe (Pain Scale 7-10) Sodium Chloride (Ns) 1,000 mls @ 100 mls/hr IVCONT .Q10H [facility] Last Admin: 01/25/24 06:27 Dose: 100 mls/hr Documented By: EDUARD Acetaminophen (Ofirmev) 1,000 mg in 100 mls @ 400 mls/hr IV Q6H [facility] Last Admin: 01/25/24 06:37 Dose: Not Given Documented By: EDUARD Non-Admin Reason: dose exceeded max Ketorolac Tromethamine (Ketorolac Tromethamine 15 Mg/Ml Vial) 15 mg IVPUSH Q6H PRN PRN Reason: Pain, Moderate(Pain Scale 4-6) Last Admin: 01/25/24 06:38 Dose: 15 mg Documented By: EDUARD Lidocaine HCl (Lidocaine Hcl Viscous 2 % 15 Ml Solution) 15 ml MUCOUS MEM Q3H PRN PRN Reason: Pain, Mild (Pain Scale 1-3) Melatonin (Melatonin 3 Mg Tablet) 6 mg PO BEDTIME PRN PRN Reason: Insomnia Ondansetron HCl (Ondansetron Hcl 4 Mg/2 Ml Vial) 4 mg IVPUSH Q8H PRN PRN Reason: Nausea and Vomiting Sodium Chloride (0.9 % Sodium Chloride Flush 3 Ml Syringe) 3 ml IVFLUSH QSHIFT [facility] Last Admin: 01/25/24 07:07 Dose: Not Given Documented By: KARAN Non-Admin Reason: IV Running Labs 01/25/24 06:15 01/25/24 06:15 Labs: Laboratory Results - last 24 hr 01/25/24 06:15 MCV 98.1 H MCH 35.4 H MCHC 36.1 H RDW 11.7 Plt Count 350 MPV 8.2 L Immature Gran % (Auto) 0.4 Neut % (Auto) 81.8 H Lymph % (Auto) 8.8 L [place] % (Auto) 6.5 Eos % (Auto) 1.9 Baso % (Auto) 0.6 Lymph # (Auto) 1.3 [place] # (Auto) 1.0 Eos # (Auto) 0.3 Baso # (Auto) 0.1 Abs Immat Gran (auto) 0.06 H Absolute Neuts (auto) 12.2 H Absolute Nucleated RBC 0.000 Nucleated RBC % (auto) 0.0 Anion Gap 16 Estim Creat Clear Calc 78.3 Estimated GFR > 60 Fasting Glucose 70 Calcium 8.6 Procedures Date of Service Date of Service: 01/25/24 Progress Note: A&P Assessment and plan (1) Large bowel obstruction: Status: Acute (2) Colonic mass: Status: Acute (3) Status post Valorie procedure: Status: Acute Plan POD #2 s/p exploratory laparotomy, takedown splenic flexure, sigmoid resection, end colostomy, Valorie's pouch for obstructing sigmoid mass. NGT output decreased overnight. Ostomy output remains high. Abd soft, mild distention with clean incision. Ostomy slightly dusky with some slough but functioning well. Will clamp NGT for 4 hrs, check residual. Unclamp sooner if develops nausea, vomiting, bloating, worsening abd pain. Encouraged OOB/ambulation of halls today and IS use. Await pathology. Ostomy education. AM labs reviewed. Time Spent With Patient Time: Total time managing care of this patient today ____ minutes. Quality Stroke Does the patient have a stroke diagnosis?: No VTE Prior VTE?: No VTE Risk Level:: Surgical - moderate VTE Device Contraindication: N/A - Device Ordered VTE Drug Contraindication: N/A - Med Ordered
--- NOTE | 2024-01-25 14:00 | HO.OSTOMY ---
Ostomy consult: Initial Teaching 63yr old male admitted to [facility] [place]22[place]. Patient seen on Med Surg unit for ostomy teaching. Colostomy creation by Dr. Townsend on 01/23/24. POD#2. ?Upon entry into patient's room, he is lying in his bed, he is alert and oriented x 3, he currently has no complaints. ?Introductions were completed, he is agreeable to continuing with teaching. ? We discussed his pain control at 10 at the current moment, he reports increasing the use of his IS and ambulating the entire unit (1x today so far). ?We began by discussing general knowledge about the Colostomy and questions he had. ?We discussed opening and closing the ostomy pouch. He was able to independently provide a return demonstration on an empty pouch. ?He had not yet emptied his pouch.? We discussed the importance of emptying pouch when 1/3 to 1/2 full, how to empty pouch, and lining water with toilet paper to prevent splash back. With an empty Coloplast pouch he performed a demonstration. He was also educated on when to contact review coordinator/Dr Townsend's office/seek emergency medical treatment. Patient was given some ostomy pouches for transition to home. Aware that Rx written for pouches and rings will be sent by Outpt nurse to [place] for home delivery.? Reviewed written education with patient and left at bedside for further review. ?He did watch the education videos supplied by [facility]. Permission was granted for pouch assessment and leak was noted.? Stoma is dark brown and yellow necrotic areas central area is red and appears viable. Significant amount of gas ans stool noted by pt and staff, which may have contributed to leaking pouch. Pouch was changed. Skin was assessed and remains intact. Midline with steri strips in place no drainage noted. The stoma is mushroom shaped and the opening of the pouch had to be cut to 50mm due to being able to get the pouch over the end of the stoma, this left a gap exposing skin therefore a ring was used to create a seal and protect the skin from output. A two piece pouch was used Coloplast #[id number] for easy stoma assessment given the significance of the necrosis. Discussed necrosis and photo reviewed with BELEM Bass from general surgery. He reported having no questions at this time. ?Patient was made aware that I will return to bedside early next week for ongoing education - however to note patient seems to have a good understanding of care and material at this time. ?He will benefit from VNA services at time of discharge. ?All questions and concerns addressed at this time. Next teaching session goals: Patient should be emptying with staff assistance over the weekend. Steps to a pouch change he is able to recall We discussed the following steps: 1. Empty pouch before pouch change 2. Remove pouch using push/pull technique from top to bottom 3. Cleanse stoma and skin with tap water only - no soap or baby wipes 4. Pat dry 5. Measure stoma and cut new pouch no more than 1/8 inch larger than stoma and no smaller than stoma 6. If instructed by your ostomy nurse stretch barrier seal to the size of the stoma and press onto skin around stoma (up to the edge of the stoma but not onto the stoma) 7. Press the new pouch into place and hold for several minutes (close pouch tail) 8. Empty pouch when 1/3 to 1/2 full 9. Change pouch twice weekly on a schedule (for example, every Sunday and ) and as needed for any leaking (feels like intense itch or burn at edge of stoma) 10. May order pre-cut pouches (already cut to size of stoma) once stoma measures the same size consistently. ?
[2024-01-25] MEDS: 0.9 % Sodium Chloride Flush 3 ML SYRINGE IVFLUSH (20:00)
[2024-01-26] MEDS: Famotidine/PF 20 MG/2 ML VIAL IVPUSH ×2 (00:45→23:30)
[2024-01-26] MEDS: Acetaminophen 1,000 MG/100 ML PIGGYBACK 400 MG IV ×4 (00:51→18:34)
[2024-01-26] MEDS: 0.9 % Sodium Chloride 1,000 ML 100 ML IVCONT (01:43)
[2024-01-26] MEDS: Ketorolac Tromethamine 15 MG/ML VIAL IVPUSH ×3 (02:00→23:39)
[2024-01-26 04:13] VITALS: BP 114/73; PULSE 70; RESP 16; TEMP 36.4; O2SAT 97
[2024-01-26 07:12] VITALS: BP 132/78; PULSE 71; RESP 16; TEMP 36.5; O2SAT 98
[2024-01-26] MEDS: 0.9 % Sodium Chloride Flush 3 ML SYRINGE IVFLUSH ×2 (09:12→23:27)
--- NOTE | 2024-01-26 09:31 | P.PNGS_ITS ---
Subjective Subjective Date of Service: 01/26/24 Interval history: feels well stoma functioning well tolerating clears Physical Exam 2 Vital Signs: Vital Signs: Last Vital Signs Temp 97.7 F 01/26/24 07:12 Pulse 71 01/26/24 07:12 Resp 16 01/26/24 07:12 BP 132/78 01/26/24 07:12 Pulse Ox 98 01/26/24 07:12 O2 Del Method Room Air 01/26/24 07:12 O2 Flow Rate 2 01/23/24 14:06 BMI result Body Mass Index 22.3 Const: General: comfortable and no acute distress Resp: Effort & Inspection: normal respiratory effort Cardio: Rate: regular rate GI: Other: stoma with good output incision clean and dry Palpation (GI): Soft to palpation, not firm and no guarding Objective Data Active Medications Benzocaine (Throat Lozenge, Medicated Lozenge) 1 lozenge MUCOUS MEM Q2H PRN PRN Reason: Sore Throat Famotidine (Famotidine/Pf 20 Mg/2 Ml Vial) 20 mg IVPUSH BID PRN PRN Reason: heartburn Last Admin: 01/26/24 00:45 Dose: 20 mg Documented By: TATIANNA Hydromorphone HCl (Hydromorphone Hcl 1 Mg/Ml Syringe) 1 mg IVPUSH Q4H PRN; Protocol PRN Reason: Pain, Severe (Pain Scale 7-10) Acetaminophen (Ofirmev) 1,000 mg in 100 mls @ 400 mls/hr IV Q6H [facility] Last Infusion: 01/26/24 09:30 Dose: Infused Documented By: DON Ketorolac Tromethamine (Ketorolac Tromethamine 15 Mg/Ml Vial) 15 mg IVPUSH Q6H PRN PRN Reason: Pain, Moderate(Pain Scale 4-6) Last Admin: 01/26/24 02:00 Dose: 15 mg Documented By: TATIANNA Lidocaine HCl (Lidocaine Hcl Viscous 2 % 15 Ml Solution) 15 ml MUCOUS MEM Q3H PRN PRN Reason: Pain, Mild (Pain Scale 1-3) Melatonin (Melatonin 3 Mg Tablet) 6 mg PO BEDTIME PRN PRN Reason: Insomnia Ondansetron HCl (Ondansetron Hcl 4 Mg/2 Ml Vial) 4 mg IVPUSH Q8H PRN PRN Reason: Nausea and Vomiting Sodium Chloride (0.9 % Sodium Chloride Flush 3 Ml Syringe) 3 ml IVFLUSH QSHIFT [facility] Last Admin: 01/26/24 09:12 Dose: 3 ml Documented By: DON Bautista 01/25/24 06:15 01/25/24 06:15 Procedures Date of Service Date of Service: 01/26/24 Progress Note: A&P Assessment and plan (1) Colonic mass: Status: Acute Assessment and Plan: s/p Valorie's resection doing well postop stoma functioning diet as tolerated OOB ok to shower looks well ambulate more Time Spent With Patient Time: Total time managing care of this patient today ____ minutes. Quality Stroke Does the patient have a stroke diagnosis?: No VTE Prior VTE?: No VTE Risk Level:: Surgical - moderate VTE Device Contraindication: N/A - Device Ordered VTE Drug Contraindication: N/A - Med Ordered
[2024-01-26 11:25] VITALS: BP 118/58; PULSE 86; RESP 16; TEMP 37; O2SAT 98
[2024-01-26 15:35] VITALS: BP 127/72; PULSE 85; RESP 16; TEMP 36.8; O2SAT 99
[2024-01-26 20:00] VITALS: BP 132/72; PULSE 78; RESP 18; TEMP 36.6; O2SAT 98
[2024-01-26 23:25] VITALS: BP 143/71; PULSE 78; RESP 18; TEMP 37.2; O2SAT 98
[2024-01-26] MEDS: Melatonin 3 MG TABLET 6 MG PO (23:39)
--- NOTE | 2024-01-27 00:47 | PC.NURSE ---
Patient does very well with emptying colostomy bag. Suggested to measure output for accurate I&O.
[2024-01-27 02:58] VITALS: BP 124/71; PULSE 73; RESP 18; TEMP 36.9; O2SAT 99
[2024-01-27] MEDS: Ketorolac Tromethamine 15 MG/ML VIAL IVPUSH (06:24)
[2024-01-27 07:25] VITALS: BP 122/69; PULSE 77; RESP 16; TEMP 36.4; O2SAT 98
[2024-01-27] MEDS: 0.9 % Sodium Chloride Flush 3 ML SYRINGE IVFLUSH ×3 (09:17→23:50)
--- NOTE | 2024-01-27 10:10 | P.PNGS_ITS ---
Subjective Subjective Date of Service: 01/27/24 Interval history: Feels well Passing flatus and stool via stoma Tolerating diet Has been ambulating Physical Exam 2 Vital Signs: Vital Signs: Last Vital Signs Temp 97.6 F 01/27/24 07:25 Pulse 77 01/27/24 07:25 Resp 16 01/27/24 07:25 BP 122/69 01/27/24 07:25 Pulse Ox 98 01/27/24 07:25 O2 Del Method Room Air 01/27/24 07:25 O2 Flow Rate 2 01/23/24 14:06 BMI result Body Mass Index 22.3 Const: General: comfortable and no acute distress Resp: Effort & Inspection: normal respiratory effort Cardio: Rate: regular rate GI: Other: Incision clean and dry, stoma functioning well with good output Palpation (GI): Soft to palpation, not firm and no guarding Objective Data Active Medications Benzocaine (Throat Lozenge, Medicated Lozenge) 1 lozenge MUCOUS MEM Q2H PRN PRN Reason: Sore Throat Famotidine (Famotidine/Pf 20 Mg/2 Ml Vial) 20 mg IVPUSH BID PRN PRN Reason: heartburn Last Admin: 01/26/24 23:30 Dose: 20 mg Documented By: JENNIFER Hydromorphone HCl (Hydromorphone Hcl 1 Mg/Ml Syringe) 1 mg IVPUSH Q4H PRN; Protocol PRN Reason: Pain, Severe (Pain Scale 7-10) Ketorolac Tromethamine (Ketorolac Tromethamine 15 Mg/Ml Vial) 15 mg IVPUSH Q6H PRN PRN Reason: Pain, Moderate(Pain Scale 4-6) Last Admin: 01/27/24 06:24 Dose: 15 mg Documented By: JENNIFER Lidocaine HCl (Lidocaine Hcl Viscous 2 % 15 Ml Solution) 15 ml MUCOUS MEM Q3H PRN PRN Reason: Pain, Mild (Pain Scale 1-3) Melatonin (Melatonin 3 Mg Tablet) 6 mg PO BEDTIME PRN PRN Reason: Insomnia Last Admin: 01/26/24 23:39 Dose: 6 mg Documented By: JENNIFER Ondansetron HCl (Ondansetron Hcl 4 Mg/2 Ml Vial) 4 mg IVPUSH Q8H PRN PRN Reason: Nausea and Vomiting Sodium Chloride (0.9 % Sodium Chloride Flush 3 Ml Syringe) 3 ml IVFLUSH QSHIFT [facility] Last Admin: 01/27/24 09:17 Dose: 3 ml Documented By: MARIBEL Labs 01/25/24 06:15 01/25/24 06:15 Procedures Date of Service Date of Service: 01/27/24 Progress Note: A&P Assessment and plan (1) Colonic mass: Status: Acute Assessment and Plan: Status post Valorie's procedure Good GI function Stoma working well Clinically doing very well I explained to the patient that he may be able to be discharged today He states that he will go home on Sunday - says he already has arrange a ride available on Sunday Oral pain med Time Spent With Patient Time: Total time managing care of this patient today ____ minutes. Quality Stroke Does the patient have a stroke diagnosis?: No VTE Prior VTE?: No VTE Risk Level:: Surgical - moderate VTE Device Contraindication: N/A - Device Ordered VTE Drug Contraindication: N/A - Med Ordered
[2024-01-27 12:00] VITALS: BP 118/64; PULSE 76; RESP 18; TEMP 36.3; O2SAT 98
[2024-01-27] MEDS: oxyCODONE HCl Immed Release 5 MG TABLET PO ×2 (13:48→19:53)
[2024-01-27 15:49] VITALS: BP 131/71; PULSE 81; RESP 18; TEMP 37.1; O2SAT 97
[2024-01-27] MEDS: Famotidine/PF 20 MG/2 ML VIAL IVPUSH (16:37)
[2024-01-27 19:43] VITALS: BP 138/75; PULSE 83; RESP 16; TEMP 37; O2SAT 98
[2024-01-27 23:41] VITALS: BP 138/79; PULSE 94; RESP 16; TEMP 36.8; O2SAT 99
[2024-01-27] MEDS: Melatonin 3 MG TABLET 6 MG PO (23:58)
[2024-01-28] MEDS: oxyCODONE HCl Immed Release 5 MG TABLET PO ×5 (01:25→23:04)
[2024-01-28 03:27] VITALS: BP 114/66; PULSE 81; RESP 16; TEMP 36.6; O2SAT 97
[2024-01-28 07:40] VITALS: BP 117/68; PULSE 87; RESP 17; TEMP 36.6; O2SAT 98
[2024-01-28] MEDS: 0.9 % Sodium Chloride Flush 3 ML SYRINGE IVFLUSH ×3 (07:43→23:13)
[2024-01-28 11:51] VITALS: BP 116/68; PULSE 89; RESP 18; TEMP 36.5; O2SAT 98
[2024-01-28] MEDS: Famotidine/PF 20 MG/2 ML VIAL IVPUSH (14:26)
--- NOTE | 2024-01-28 14:42 | PC.NURSE ---
Redness noted around incision and creamy red drainage with an odor noted on abdominal dressing, while wound nurse is at bedside changing ostomy appliance. No increasing abdominal pain per patient. Surgeon made aware.
[2024-01-28 15:21] VITALS: BP 138/72; PULSE 96; RESP 18; TEMP 37.2; O2SAT 98
[2024-01-28] MEDS: ceFAZolin Sodium 2 GM in 0.9 % Sodium Chloride 100 ML IV (15:39)
--- NOTE | 2024-01-28 15:53 | P.PNGS_ITS ---
Subjective Subjective Date of Service: 01/29/24 Interval history: All things secured consider, patient was doing well. Starting a diet. Ostomy is functioning. He is undergoing ostomy instructions. He is ambulating. He is doing his incentive spirometry. Patient was showering. Physical Exam 2 Vital Signs: Vital Signs: Last Vital Signs Temp 98.9 F 01/28/24 15:21 Pulse 96 01/28/24 15:21 Resp 18 01/28/24 15:21 BP 138/72 01/28/24 15:21 Pulse Ox 98 01/28/24 15:21 O2 Del Method Room Air 01/28/24 15:21 O2 Flow Rate 2 01/23/24 14:06 BMI result Body Mass Index 22.3 GI: Other: Patient has some superficial cellulitis around with the mid area of his incision. Wound was probed with a Q-tip and no purulence was demonstrated. Just some serous fluid. Ostomy functioning well. Objective Data Active Medications Benzocaine (Throat Lozenge, Medicated Lozenge) 1 lozenge MUCOUS MEM Q2H PRN PRN Reason: Sore Throat Famotidine (Famotidine/Pf 20 Mg/2 Ml Vial) 20 mg IVPUSH BID PRN PRN Reason: heartburn Last Admin: 01/28/24 14:26 Dose: 20 mg Documented By: ALDEN Cefazolin Sodium 2 gm/ Sodium (Chloride) 100 mls @ 200 mls/hr IV Q8H [facility] Last Admin: 01/28/24 15:39 Dose: 200 mls/hr Documented By: NEHEMIAH Lidocaine HCl (Lidocaine Hcl Viscous 2 % 15 Ml Solution) 15 ml MUCOUS MEM Q3H PRN PRN Reason: Pain, Mild (Pain Scale 1-3) Melatonin (Melatonin 3 Mg Tablet) 6 mg PO BEDTIME PRN PRN Reason: Insomnia Last Admin: 01/27/24 23:58 Dose: 6 mg Documented By: SHIRLENE Ondansetron HCl (Ondansetron Hcl 4 Mg/2 Ml Vial) 4 mg IVPUSH Q8H PRN PRN Reason: Nausea and Vomiting Oxycodone HCl (Oxycodone Hcl Immed Release 5 Mg Tablet) 5 mg PO Q4H PRN PRN Reason: Pain, Moderate(Pain Scale 4-6) Last Admin: 01/28/24 11:44 Dose: 5 mg Documented By: ALDEN Sodium Chloride (0.9 % Sodium Chloride Flush 3 Ml Syringe) 3 ml IVFLUSH QSHIFT [facility] Last Admin: 01/28/24 15:38 Dose: 3 ml Documented By: NEHEMIAH Labs 01/25/24 06:15 01/25/24 06:15 Procedures Date of Service Date of Service: 01/29/24 Progress Note: A&P Assessment and plan (1) Postop check: Status: Acute Plan We will start IV Ancef and local wound care and continue current plan of ostomy instruction, incentive spirometry, ambulate, diet as tolerated. Time Spent With Patient Time: Total time managing care of this patient today ____ minutes. Quality Stroke Does the patient have a stroke diagnosis?: No VTE Prior VTE?: No VTE Risk Level:: Surgical - moderate VTE Device Contraindication: N/A - Device Ordered VTE Drug Contraindication: N/A - Med Ordered
--- NOTE | 2024-01-28 16:16 | HO.OSTOMY ---
Ostomy consult: Follow up Teaching 63yr old [place] [facility] [place] Patient seen on Med Surg unit for ostomy teaching. Colostomy creation by Dr. Townsend on 01/23/24. ?Upon entry into patient's room, he is lying in his bed, he is alert and oriented x 3, he currently has no complaints. ?Introductions were completed, he is agreeable to continuing with teaching. ? We discussed his pain control at 04/21 at the current moment, he reports increasing the use of his IS and ambulating the entire unit (3x today so far). ?We began by discussing general knowledge about the Colostomy and questions he had. ?He reports he has been independent with emptying his pouch since Sunday. He reports comfort and understanding of this task - he denies questions and needing further instruction. We agreed today we would focus on a pouch change. Permission was granted for pouch assessment and no leak was noted but the top portion of his pouch was lifting.? Pouch removed and assessed. Stoma is improving but continues with dark brown and yellow necrotic areas central area is red and appears viable. Skin was assessed and was noted for red erythema concern for MCJ separation at 9'oclock currently remains intact. The stoma is mushroom shaped and the opening of the pouch had to be cut to 50mm due to being able to get the pouch over the end of the stoma, this left a gap exposing skin therefore a ring was used to create a seal and protect the skin from output. A two piece pouch was used Coloplast #[id number] for easy stoma assessment given thenecrosis. He was able to cut the pouch and participated in the pouch change however he was very easily distracted and needed to be redirected often. He reported having no questions at this time. ?Patient was made aware that I will return to bedside later in the week for ongoing education - however to note patient seems to have a good understanding of care and material at this time. ?He will benefit from VNA services at time of discharge. ?All questions and concerns addressed at this time. 01/25/24 01/28/24 - Stoma remains viable and has increase pink red pigmentation and less necrotic tissue with less swelling. there is concern for MCJ at 9 o'clock. There is induration and red erythema noted to this area. Will continue to monitor but no separation noted at this time. 01/28/24 - Concern for infection - Midline incision with warm red erythema and induration noted - odorous seropurulent drainage noted from midline - moderate amount. TT to Dr. Townsend - by direct care nurse - IV Antibiotic to be ordered. He was also educated on when to contact manager risk/Dr Townsend's office/seek emergency medical treatment. Patient was given some ostomy pouches for transition to home. Aware that Rx written for pouches and rings will be sent by Outpt nurse to [place] for home delivery.? Reviewed written education with patient and left at bedside for further review. ?He did watch the education videos supplied by [facility]. We discussed the following steps: 1. Empty pouch before pouch change 2. Remove pouch using push/pull technique from top to bottom 3. Cleanse stoma and skin with tap water only - no soap or baby wipes 4. Pat dry 5. Measure stoma and cut new pouch no more than 1/8 inch larger than stoma and no smaller than stoma 6. If instructed by your ostomy nurse stretch barrier seal to the size of the stoma and press onto skin around stoma (up to the edge of the stoma but not onto the stoma) 7. Press the new pouch into place and hold for several minutes (close pouch tail) 8. Empty pouch when 1/3 to 1/2 full 9. Change pouch twice weekly on a schedule (for example, every Sunday and ) and as needed for any leaking (feels like intense itch or burn at edge of stoma) 10. May order pre-cut pouches (already cut to size of stoma) once stoma measures the same size consistently. ?
--- NOTE | 2024-01-28 16:37 | MHC.CLN ---
NUTRITION ADDED ENSURE TID PER COMMUNICATION WITH WOUND/GLOVE CUFFER. SUPPLEMENT PROVIDES 1050 KCALS, 60 G PROTEIN.
[2024-01-28 20:00] VITALS: BP 137/74; PULSE 88; RESP 16; TEMP 37; O2SAT 97
[2024-01-28] MEDS: ceFAZolin Sodium/Dextrose,Iso 2 GM/50 ML PIGGYBACK IV (23:12)
[2024-01-29] VITALS (7 sets, daily range): BP systolic 105–138; BP diastolic 58–77; PULSE 70–88; RESP 16–18; TEMP 36.3–37; O2SAT 96–98
[2024-01-29] MEDS: Famotidine/PF 20 MG/2 ML VIAL IVPUSH ×2 (00:52→21:52)
[2024-01-29] MEDS: oxyCODONE HCl Immed Release 5 MG TABLET PO ×2 (03:08→08:06)
[2024-01-29] MEDS: 0.9 % Sodium Chloride Flush 3 ML SYRINGE IVFLUSH ×3 (07:52→23:59)
[2024-01-29] MEDS: ceFAZolin Sodium/Dextrose,Iso 2 GM/50 ML PIGGYBACK IV ×3 (07:53→23:58)
--- NOTE | 2024-01-29 10:29 | P.PNGS_ITS ---
Subjective Subjective Date of Service: 01/29/24 Interval history: Patient was doing well. Tolerating a diet. Ostomy is functioning. He is ambulating. He is using his incentive. He has showered. Physical Exam 2 Vital Signs: Vital Signs: Last Vital Signs Temp 97.5 F 01/29/24 07:48 Pulse 82 01/29/24 07:48 Resp 16 01/29/24 07:48 BP 105/63 01/29/24 07:48 Pulse Ox 97 01/29/24 07:48 O2 Del Method Room Air 01/29/24 07:48 O2 Flow Rate 2 01/23/24 14:06 BMI result Body Mass Index 22.3 GI: Other: Abdomen; incision cellulitis markedly receded. Ostomy functioning well. Objective Data Active Medications Benzocaine (Throat Lozenge, Medicated Lozenge) 1 lozenge MUCOUS MEM Q2H PRN PRN Reason: Sore Throat Famotidine (Famotidine/Pf 20 Mg/2 Ml Vial) 20 mg IVPUSH BID PRN PRN Reason: heartburn Last Admin: 01/29/24 00:52 Dose: 20 mg Documented By: DEONTE Cefazolin Sodium/Dextrose (Ancef) 2 gm in 50 mls @ 100 mls/hr IV Q8H [facility] Last Infusion: 01/29/24 10:07 Dose: Infused Documented By: JOYCE Lidocaine HCl (Lidocaine Hcl Viscous 2 % 15 Ml Solution) 15 ml MUCOUS MEM Q3H PRN PRN Reason: Pain, Mild (Pain Scale 1-3) Melatonin (Melatonin 3 Mg Tablet) 6 mg PO BEDTIME PRN PRN Reason: Insomnia Last Admin: 01/27/24 23:58 Dose: 6 mg Documented By: SHIRLENE Ondansetron HCl (Ondansetron Hcl 4 Mg/2 Ml Vial) 4 mg IVPUSH Q8H PRN PRN Reason: Nausea and Vomiting Oxycodone HCl (Oxycodone Hcl Immed Release 5 Mg Tablet) 5 mg PO Q4H PRN PRN Reason: Pain, Moderate(Pain Scale 4-6) Last Admin: 01/29/24 08:06 Dose: 5 mg Documented By: JOYCE Sodium Chloride (0.9 % Sodium Chloride Flush 3 Ml Syringe) [facility] Last Admin: 01/29/24 07:52 Dose: 3 ml Documented By: JOYCE Labs 01/25/24 06:15 01/25/24 06:15 Procedures Date of Service Date of Service: 01/29/24 Progress Note: A&P Assessment and plan (1) Status post Valorie procedure: Status: Acute Plan Continue current plan. Possible discharge tomorrow were with oral antibiotics. Continue ostomy instruction Time Spent With Patient Time: Total time managing care of this patient today ____ minutes. Quality Stroke Does the patient have a stroke diagnosis?: No VTE Prior VTE?: No VTE Risk Level:: Surgical - moderate VTE Device Contraindication: N/A - Device Ordered VTE Drug Contraindication: N/A - Med Ordered
[2024-01-29] MEDS: Ibuprofen 800 MG TABLET PO ×2 (15:55→23:59)
--- NOTE | 2024-01-29 16:45 | HO.OSTOMY ---
Ostomy consult: Follow up Teaching 63yr old male admitted to [facility] [place] on 01/22/24. Patient seen on Med Surg unit for ostomy teaching. Colostomy creation by Dr. Townsend on 01/23/24. ?Upon entry into patient's room, he is lying in his bed, he is alert and oriented x 3, he currently has no complaints. ?He reports feeling well today. Pouch assessed and remains intact no leaking noted - semiformed soft stool noted in pouch. Midline dressing intact - patient reports midline dressing recently changed no leaking noted. Patient reports he is independent in his emptying his pouch and is able to verbally walk me through a pouch change. Will continue to follow up with continued education tomorrow prior to tenative d/c.
[2024-01-30 03:11] VITALS: BP 125/71; PULSE 82; RESP 18; TEMP 36.2; O2SAT 100
[2024-01-30 04:00] VITALS: RESP 19
[2024-01-30 07:28] VITALS: BP 112/64; PULSE 69; RESP 18; TEMP 35.9; O2SAT 98
[2024-01-30] MEDS: 0.9 % Sodium Chloride Flush 3 ML SYRINGE IVFLUSH (07:36)
[2024-01-30] MEDS: ceFAZolin Sodium/Dextrose,Iso 2 GM/50 ML PIGGYBACK IV (07:36)
[2024-01-30 07:54] LABS: Basophils Absolute Auto 0.1 X10*3/uL (0.0-0.2); Basophils Percent Auto 0.7 % (0-2); Eosinophils Absolute Auto 0.7 X10*3/uL (0.0-0.4); Eosinophils Percent Auto 5.9 % (0-4); Hematocrit 42.3 % (42.0-52.0); Hemoglobin 14.6 g/dl (14.0-18.0); Imm Gran Abs Auto 0.07 X10*3/uL (0.00-0.03); Imm Gran Pct Auto 0.6 % (0.0-0.4); Lymphocytes Absolute Auto 1.9 X10*3/uL (1.2-4.9); Lymphocytes Percent Auto 16.8 % (20-40); Mean Corpuscular HGB Conc 34.5 g/dl (31.0-36.0); Mean Corpuscular Hemoglobin 34.4 pg (27.0-33.0); Mean Corpuscular Volume 99.5 fL (80.0-98.0); Mean Platelet Volume 8.7 fL (9.4-12.4); Monocytes Percent Auto 8.7 % (2-11); Neutrophils Absolute Auto 7.7 x10*3/uL (2.0-8.3); Neutrophils Percent Auto 67.3 % (45-73); Platelet Count 489 X10*3/uL (160-400); Red Blood Count 4.25 X10*6/uL (4.60-5.80); Red Cell Distribution Width 11.9 % (11.0-16.0); White Blood Count 11.4 X10*3/uL (4.8-10.8)
[2024-01-30] MEDS: Ibuprofen 800 MG TABLET PO (08:07)
--- NOTE | 2024-01-30 08:26 | P.PNGS_ITS ---
Subjective Subjective Date of Service: 01/30/24 Interval history: Feels ok this morning. Reports mild pain well controlled. Ostomy functioning well. OOB and ambulating without difficulty. Tolerating diet. Physical Exam 2 Vital Signs: Vital Signs: Last Vital Signs Temp 96.6 F L 01/30/24 07:28 Pulse 69 01/30/24 07:28 Resp 18 01/30/24 07:28 BP 112/64 01/30/24 07:28 Pulse Ox 98 01/30/24 07:28 O2 Del Method Room Air 01/30/24 07:28 O2 Flow Rate 2 01/23/24 14:06 BMI result Body Mass Index 22.3 Const: General: comfortable, no acute distress and alert O rientation/consciousness: patient oriented x3 Resp: Effort & Inspection: normal respiratory effort GI: Other: midline incision with purulent appearing drainage, erythema much improved ostomy beefy red centrally, large amt of stool output Inspection: No distended Palpation (GI): Soft to palpation, Tenderness to palpation present (GI) (mild incisional) and no guarding Skin: General skin exam: no rashes or lesions noted Neuro: General: patient oriented x3 and moves all extremities Objective Data Active Medications Benzocaine (Throat Lozenge, Medicated Lozenge) 1 lozenge MUCOUS MEM Q2H PRN PRN Reason: Sore Throat Famotidine (Famotidine/Pf 20 Mg/2 Ml Vial) 20 mg IVPUSH BID PRN PRN Reason: heartburn Last Admin: 01/29/24 21:52 Dose: 20 mg Documented By: JENNIFER Cefazolin Sodium/Dextrose (Ancef) 2 gm in 50 mls @ 100 mls/hr IV Q8H [facility] Last Infusion: 01/30/24 08:07 Dose: Infused Documented By: JOYCE Ibuprofen (Ibuprofen 800 Mg Tablet) 800 mg PO Q8H PRN PRN Reason: Pain, Moderate(Pain Scale 4-6) Last Admin: 01/30/24 08:07 Dose: 800 mg Documented By: JOYCE Lidocaine HCl (Lidocaine Hcl Viscous 2 % 15 Ml Solution) 15 ml MUCOUS MEM Q3H PRN PRN Reason: Pain, Mild (Pain Scale 1-3) Melatonin (Melatonin 3 Mg Tablet) 6 mg PO BEDTIME PRN PRN Reason: Insomnia Last Admin: 01/27/24 23:58 Dose: 6 mg Documented By: SHIRLENE Ondansetron HCl (Ondansetron Hcl 4 Mg/2 Ml Vial) 4 mg IVPUSH Q8H PRN PRN Reason: Nausea and Vomiting Oxycodone HCl (Oxycodone Hcl Immed Release 5 Mg Tablet) 5 mg PO Q4H PRN PRN Reason: Pain, Moderate(Pain Scale 4-6) Last Admin: 01/29/24 08:06 Dose: 5 mg Documented By: JOYCE Sodium Chloride (0.9 % Sodium Chloride Flush 3 Ml Syringe) 3 ml IVFLUSH QSHIFT [facility] Last Admin: 01/30/24 07:36 Dose: 3 ml Documented By: JOYCE Labs 01/30/24 07:18 01/25/24 06:15 Labs: Laboratory Results - last 24 hr 01/30/24 07:18 MCV 99.5 H MCH 34.4 H MCHC 34.5 RDW 11.9 Plt Count 489 H D MPV 8.7 L Immature Gran % (Auto) 0.6 H Neut % (Auto) 67.3 Lymph % (Auto) 16.8 L [place] % (Auto) 8.7 Eos % (Auto) 5.9 H Baso % (Auto) 0.7 Lymph # (Auto) 1.9 [place] # (Auto) 1.0 Eos # (Auto) 0.7 H Baso # (Auto) 0.1 Abs Immat Gran (auto) 0.07 H Absolute Neuts (auto) 7.7 Absolute Nucleated RBC 0.000 Nucleated RBC % (auto) 0.0 Procedures Date of Service Date of Service: 01/30/24 Progress Note: A&P Assessment and plan (1) Status post Vicki procedure: Status: Acute (2) Colonic mass: Status: Acute Plan S/p vicki procedure for LBO. Incisional erythema significantly improved. Can shower and place dry dressing following. 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 He has never had a colonoscopy before. He will need this prior to reversal. Will reassess later today for possible dc to home on course of oral abx. Will need VNA services. Patient comfortable with plan. 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 - Multiple reactive appearing lymphoid aggregates. - Negative for malignancy. Time Spent With Patient Time: Total time managing care of this patient today ____ minutes. Quality Stroke Does the patient have a stroke diagnosis?: No VTE Prior VTE?: No VTE Risk Level:: Surgical - moderate VTE Device Contraindication: N/A - Device Ordered VTE Drug Contraindication: N/A - Med Ordered
[2024-01-30 08:44] LABS: MANUAL DIFF FLAG NO
[2024-01-30 11:36] VITALS: BP 126/60; PULSE 78; RESP 16; TEMP 36.1; O2SAT 99
--- NOTE | 2024-01-30 11:47 | HO.OSTOMY ---
Ostomy consult: Follow up Teaching 63yr old male admitted to [facility] [place]22[place]24. Patient seen on Med Surg unit for ostomy teaching. Colostomy creation by Dr. Townsend on 01/23/24. ?Upon entry into patient's room, he is lying in his bed, he is alert and oriented x 3, he currently has no complaints. ?He reports feeling well today. Pouch assessed and remains intact no leaking noted - semiformed soft stool noted in pouch. Midline dressing intact - patient reports midline dressing recently changed no leaking noted. Patient reports he is independent in his emptying his pouch and is able to verbally walk me through a pouch change. Pouch is not in need of change at this time. He is set for d/c to home this afternoon with VNA services. He reports he received his home supplies at his home for pouches. [employer] Care package sent to his home from supplier with patient permission. Patient denies questions or concerns at this time and reports readiness for d/c to home. Patient has initial supplies to go home with for ostomy care.
--- NOTE | 2024-01-30 12:32 | MHC.CM.PN ---
pt dcd today with hvns
[2024-01-30] MEDS: Famotidine/PF 20 MG/2 ML VIAL IVPUSH (12:38)
--- NOTE | 2024-01-30 12:53 | P.DS_ITS ---
DS: Providers Provider Date of Service: 01/30/24 Date of admission: 01/22/24 14:37 Date of discharge: 01/30/24 Primary care physician: Jo Sheehan MD Attending physician on admission: Becca Vargas Consults: 01/22/24 18:33 Consult to Gastroenterology Routine Consulting Provider: Selin Avalos Reason for consultation: sigmoid mass pt obstructed - sig scope bx 01/23/24 11:13 Consult to Ostomy Care Routine Attending physician on discharge: Ammon Townsend DS: Diagnosis Discharge Diagnosis (1) Status post Vicki procedure: Status: Acute (2) Colonic mass: Status: Acute DS: Summary Hospital Course Hospital Course: HPI AT ADMISSION: George Caldwell is a 63 year old male who came into the emergency room because he was feeling distended offloaded not feeling well. Patient says he has not had a bowel movement in a week to 2 and has not really eaten very much since Thanksgi. He said he spent Thanksgiving throwing up and he has been surviving on little sips of the liquids and antacid medication. He says he has been having terrible heartburn reflux disease. Patient has not been passing gas for a couple of days and says that he has lost some significant weight this year. He says about 2 years ago he was over 200 and something lb and now he is down to 140 lb. He denies any blood per rectum. Never had colonoscopy before. No significant family history of colon cancer. He does smoke and he consumes moderate alcohol. He says he has not really smoked or drank in the last 2 weeks. Here in the emergency room his abdomen was distended high-pitched bowel sounds and a CT scan of the abdomen and pelvis was carried out which reveals distended dilated small bowel and colon up to the sigmoid area where there appears to be a significant mass concerning for malignancy. HOSPITAL COURSE: He was admitted to the surgical service for further treatment of the LBO involving sigmoid colon. He was kept NPO NG tube was inserted for decompression, IV fluid resuscitation. It was discussed he requires surgical intervention with exploratory laparotomy, sigmoid resection, and ostomy. He elected to proceed and was added onto the OR schedule for that day. On 01/23/24, exploratory laparotomy, takedown splenic flexure, sigmoid resection, end colostomy, Vicki's pouch was performed by Dr. Townsend without immediate complications. The patient tolerated the procedure well. He had a slow recovery course. On POD #1 he had large amount of stool output. He however continued to have abd distention and high NGT output and it was therefore kept in place until POD #2 where the output decreased. His abd was less distended and his ostomy continued to function well. HE was started on clear liquids and his diet was advanced slowly as tolerated. His pain was well controlled. He was ambulated and his activity was increased. Ostomy education was performed. He did develop incisional erythema and the wound was opened and probed in two locations with evacuation of fluid. he was started on IV kefzol. This improved. On the day of discharge, he was tolerating a solid diet without nausea or vomiting, his ostomy was viable appearing and functioning well. He was ambulating without difficulty. His incisional erythema improved and continued to drain thin tannish discharge. He was instructed on changing dry dressings daily to the incision while it drained and as needed. He felt ready for discharge. He was discharged to home on 1218 in stable condition with VNA services for ostomy and wound care. He is to follow up in the office in 1 week. 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 He will need colonoscopy prior to reversal. Status at Discharge Functional status at discharge: independent ambulation Overall status at discharge: patient is progressing back to baseline Time Attestation Discharge Coordination Time (in mins): 45 Quality: Safe Use of Opioids Does Pt have an Active Cancer Diagnosis on the Problem List?: No Quality: Stroke Does the patient have a stroke diagnosis?: No Physical Exam Vital Signs: Vital Signs: Last Vital Signs Temp 96.9 F 01/30/24 11:36 Pulse 78 01/30/24 11:36 Resp 16 01/30/24 11:36 BP 126/60 01/30/24 11:36 Pulse Ox 99 01/30/24 11:36 O2 Del Method Room Air 01/30/24 11:36 O2 Flow Rate 2 01/23/24 14:06 BMI result Body Mass Index 22.3 Const: General: comfortable, no acute distress and alert Orientation/consciousness: patient oriented x3 Resp: Effort & Inspection: normal respiratory effort GI: Other: midline incision with surrounding pale erythema, improved incision with thin, tannish drainage from two wound openings ostomy with some mucosal slough, beefy red centrally, large amount of stool output Inspection: No distended Palpation (GI): Soft to palpation, Tenderness to palpation present (GI) (mild incisional) and no guarding Skin: General skin exam: no rashes or lesions noted Neuro: General: patient oriented x3 and moves all extremities DS: Data Data Completed and Pending Completed studies during hospitalization [Text1]: 01/23/24 13:07 Surgical [PTH] Routine Colon, sigmoid, segmental resection: - 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 - Multiple reactive appearing lymphoid aggregates. - Negative for malignancy. Labs on day of discharge: Laboratory Results - last 24 hr 01/30/24 07:18 WBC 11.4 H RBC 4.25 L Hgb 14.6 Hct 42.3 MCV 99.5 H MCH 34.4 H MCHC 34.5 RDW 11.9 Plt Count 489 H D MPV 8.7 L Immature Gran % (Auto) 0.6 H Neut % (Auto) 67.3 Lymph % (Auto) 16.8 L [place] % (Auto) 8.7 Eos % (Auto) 5.9 H Baso % (Auto) 0.7 Lymph # (Auto) 1.9 [place] # (Auto) 1.0 Eos # (Auto) 0.7 H Baso # (Auto) 0.1 Abs Immat Gran (auto) 0.07 H Absolute Neuts (auto) 7.7 Absolute Nucleated RBC 0.000 Nucleated RBC % (auto) 0.0 Discharge Plan Discharge Anticipated Discharge Date/Time: 01/30/24 12:20 Patient Disposition: Home Health Service Discharge Diagnosis: LBO, s/p vicki procedure Referrals: [facility]ns [Other] - 1 Week Ammon Townsend MD [Physician] - 1 Week Jo Sheehan MD [Primary Care Provider] - 1 Week Discharge Medications: New hydrocodone-acetaminophen 5-325 mg tablet 1 tab PO Q4-6H PRN (Reason: pain) Qty: 30 0RF Rx Instructions: Partial Fill upon patient request. amoxicillin-pot clavulanate 875-125 mg tablet 1 tab PO BID Qty: 10 0RF Continued multivitamin Tablet 1 tab PO DAILY Discharge Orders: Discharge Order (Routine); Ordered 01/30/24 Ordered By: Dominique John Diet: Advance to usual diet Activity on Discharge: No heavy lifting Stand Alone Forms: Patient Portal Discharge page Print Language: Occitan Activity Restrictions/Additional Instructions: Apply an ice pack for short intervals (20 minutes on, followed by at least 20 minutes off) for the first 2 days. Do not apply heat. Do not use creams, lotions, or topical antibiotics. These can cause infection or allergic reaction. Ok to shower. Dry dressing to midline incision while it drains. Ostomy care: change appliance every 3-4 days and as needed. Ostomy Nurse Rita [phone]. Follow up in office with Dr. Townsend in 1 week. ([phone]) No heavy lifting (>10lbs) or strenuous activity! Call Your Doctor If: -Your temperature exceeds 101.5? F -You experience excessive pain or swelling -You have an unexpected reaction to medication -You have excessive bleeding -You experience continued vomiting/nausea -Your incision begins to separate -Worsening redness or increased drainage from incision Ostomy Pouch Change steps: 1. Empty pouch before pouch change 2. Remove pouch using push/pull technique from top to bottom 3. Cleanse stoma and skin with tap water only - no soap or baby wipes 4. Pat dry 5. Measure stoma and cut new pouch no more than 1/8 inch larger than stoma and no smaller than stoma 6. If instructed by your ostomy nurse stretch barrier seal to the size of the stoma and press onto skin around stoma (up to the edge of the stoma but not onto the stoma) 7. Press the new pouch into place and hold (close pouch tail prior) 8. Empty pouch when 1/3 to 1/2 full 9. Change pouch twice weekly on a schedule (for example, every Sunday and ) and as needed for any leaking (feels like intense itch or burn at edge of stoma) 10. May order pre-cut pouches (already cut to size of stoma) once stoma measures the same size consistently. ? Care Plan Goals: Return to baseline health and resume normal activities following recovery period. Ostomy reversal. Health Concerns: No acute issues Plan of Treatment: Continued convalescence Assessment: Stable
--- NOTE | 2024-01-30 13:07 | P.F2F_ITS ---
Service Date Service Date: 01/30/24 Encounter Date of encounter: 01/30/24 Reasons for Services Signs and symptoms assessed: Abdominal pain, PO intake, incisional appearance, ostomy output Reason for retirement: wound care and postoperative assessment and/or care Homebound: Leaving the home is medically contraindicated at this time without the asist of a device and/or another person due th the listed conditions above and below. Reason homebound: weakness related to hospital stay and unable to drive Homebound supporting statement: Mr. Caldwell is s/p vicki procedure for LBO and obstructing sigmoid mass. He will need VNA services for ostomy care. Certification: Based on the above findings, I certify that this patient is confined to the home and needs intermittent retirement care, physical therapy and/or speech therapy, or continues to need occupational therapy. The patient is under my care, and I have initiated the establishment of the plan of care. The patient will be followed by a physician who will periodically review the plan of care. Time Spent With Patient Time: Total time managing care of this patient today ____ minutes.
== END 2024-01-30 15:11 | disposition home health service (06) | DRG 231 ==
LOC: HO.ED 09:54 → HO.EDOVER 14:43 → HO.S3 01-23 09:40
PROVIDERS: Physician Assistant Surgical; Surgery; Admitting Provider Surgery; Emergency Provider Emergency Medicine; PCP Internal Medicine; Visit Provider Surgery
PROC: 0DBN0ZZ Excision of Sigmoid Colon, Open Approach (ICD-10-PCS; CPT 49000; principal; 2024-01-23 12:00)
DX: K50.112 Crohn's disease of large intestine with intestinal obstruction (principal); K65.1 Peritoneal abscess; G89.18 Other acute postprocedural pain; K50.114 Crohn's disease of large intestine with abscess; F10.10 Alcohol abuse, uncomplicated; F17.210 Nicotine dependence, cigarettes, uncomplicated; Z71.6 Tobacco abuse counseling; L03.311 Cellulitis of abdominal wall; Z79.899 Other long term (current) drug therapy
CPT/HCPCS: 36415; 71045; 74177; 80048; 80053; 82140; 82378; 83690; 85025; 86850; 86900; 86901; 88307; 88309; 93005; 99285; C1758; J0131; J0665; J0690; J1100; J1171; J1885; J2003; J2405; J2704; J2795; J3010; Q9967

== ENCOUNTER → 2024-01-22 09:40 | Outpatient (BNV) | payer BC, SELFPAY | PROVIDERS: Admitting Provider Surgery; Emergency Provider Emergency Medicine; PCP Internal Medicine; Visit Provider Internal Medicine Cardiovascular Disease | DX: R00.0 Tachycardia, unspecified (principal) | CPT/HCPCS: 93010 ==

== ENCOUNTER → 2024-01-22 14:37 | Outpatient (BNV) | payer BC, SELFPAY | PROVIDERS: Admitting Provider Surgery; Emergency Provider Emergency Medicine; PCP Internal Medicine; Visit Provider Surgery | DX: K56.609 Unspecified intestinal obstruction, unspecified as to partial versus complete obstruction (principal); K63.89 Other specified diseases of intestine; Z93.3 Colostomy status | CPT/HCPCS: 44139; 44143; 99024; 99223; 99233 ==

== ENCOUNTER 2024-02-11 13:21 | Outpatient (AMB) | payer BC, SELFPAY ==
[2024-02-11 13:24] VITALS: BP 118/72; PULSE 72
--- NOTE | 2024-02-11 13:24 | A.OFFVIS_ITS ---
Vital Signs 02/11/24 13:24 BP 118/72 Blood Pressure Location Rt brachial Position Sitting Pulse 72 Intake Visit Reasons: colon mass excision Intake Note: Patient here s/p exploratory laparotomy, takedown splenic flexure, sigmoid resection, end colostomy, Valorie's pouch. Reports ostomy functioning well. VNA services 3X wk. Patient c/o: white growth sticking out of umbilicus. VNA 3X wk. 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 He underwent Valorie's procedure with end colostomy. Final pathology demonstrated out of a diverticular stricture. Ostomy is functioning well. Patient was tolerating his diet. He is most superior aspect of his incision has had persistent drainage. [facility] Surgical History (Updated 02/11/24 @ 14:19 by Ammon Townsend MD) Status post Valorie procedure (01/23/24) Social History Household Members: None Housing: Apartment Do you presently have visiting nurse or other home services: No Alcohol intake: former Comment: X-RAY NOT INDICATED Patient Tobacco Use Status: Current everyday Tobacco user Tobacco use type: Cigarette Cigarette Packs Per Day: 1 Cigarettes Per Day: 20.0 Years Smoked: 40 e-Cigarette/Vaping Use: Currently Using Substance Use Type: Marijuana service: No Physical Exam Vital Signs: Last Vital Signs Pulse 72 02/11/24 13:24 BP 118/72 02/11/24 13:24 GI Other: Ostomy functioning well with stool. Most superior aspect incision has a extruding material which on exploration was packing which was uneventfully removed completely. Remaining incision has very good 1st intention healing. Assessment & Plan Assessment & Plan (1) Status post Valorie procedure: Onset Date: 01/23/24 Comment: Colostomy, Valorie's pouch Dr. Kristian Verde Code(s): Z93.3 - Colostomy status Category: Surgical (2) Postop check: Code(s): Z09 - Encounter for follow-up examination after completed treatment for conditions other than malignant neoplasm Category: Surgical Plan Patient will have Trevin office nurse undergo local wound care instructions. He will see me in a few weeks time otherwise. Eventually the plan would be to undergo screening colonoscopy which he has not had prior to colostomy reversal and then eventual colostomy reversal. This is plan for several months down the road. Coding Level of Care Code Global (56152) Diagnoses Status post Valorie procedure Z93.3 Postop check Z09
== END 2024-02-11 13:54 | disposition home or self-care (01) ==
PROVIDERS: PCP Internal Medicine; Visit Provider Surgery
DX: Z93.3 Colostomy status (principal); Z09 Encounter for follow-up examination after completed treatment for conditions other than malignant neoplasm
CPT/HCPCS: 99024

== ENCOUNTER → 2024-02-12 09:57 | Outpatient (BNVA) | payer BC, SELFPAY | PROVIDERS: PCP Internal Medicine; Visit Provider Surgery | DX: Z48.00 Encounter for change or removal of nonsurgical wound dressing (principal); L02.211 Cutaneous abscess of abdominal wall | CPT/HCPCS: 99211 ==

== ENCOUNTER → 2024-02-14 10:11 | Outpatient (BNVA) | payer BC, SELFPAY | PROVIDERS: PCP Internal Medicine; Visit Provider Surgery | DX: Z48.00 Encounter for change or removal of nonsurgical wound dressing (principal) | CPT/HCPCS: 99211 ==

== ENCOUNTER → 2024-02-15 09:55 | Outpatient (BNVA) | payer BC, SELFPAY | PROVIDERS: PCP Internal Medicine; Visit Provider Surgery | DX: Z48.00 Encounter for change or removal of nonsurgical wound dressing (principal) | CPT/HCPCS: 99211 ==

== ENCOUNTER 2024-02-18 10:14 | Outpatient (AMB) | payer BC, SELFPAY ==
--- NOTE | 2024-02-18 10:16 | MHC.OFFVIS ---
Intake Visit Reasons: Wound Check Intake Note: Patient here for wound check. Reports wound near colostomy healing well. Denies oozing, pain. Only covered with bandaid. Block Press Operator Required: No Accompanied by: Self / Same As Patient Allergies No Known Allergies Allergy (Verified 02/18/24 10:19) Medication List - Last Reconciled 02/18/24 by Ammon Townsend MD multivitamin 1 tab PO DAILY HPI Comments Details: Patient presents for follow-up for wound check. All things considered he is doing quite well. He is tolerating a diet. His ostomy is functioning well. He is increasing his activity level. [facility] Surgical History (Updated 02/18/24 @ 10:37 by Ammon Townsend MD) Status post Valorie procedure (01/23/24) Social History Household Members: None Housing: Apartment Do you presently have visiting nurse or other home services: No Alcohol intake: former Comment: X-RAY NOT INDICATED Patient Tobacco Use Status: Current everyday Tobacco user Tobacco use type: Cigarette Cigarette Packs Per Day: 1 Cigarettes Per Day: 20.0 Years Smoked: 40 e-Cigarette/Vaping Use: Currently Using Substance Use Type: Marijuana service: No Physical Exam GI Other: Ostomy functioning well. Most superior aspect of the incision is granulating well. Much improvement in depth. To subcuticular suture stitch abscesses were removed. Exuberant granulating tissue was cauterized with silver nitrate. Dressing applied. Well tolerated. Assessment & Plan Assessment & Plan (1) Postop check: Code(s): Z09 - Encounter for follow-up examination after completed treatment for conditions other than malignant neoplasm Category: Surgical (2) Postoperative stitch abscess: Code(s): T81.41XA - Infection following a procedure, superficial incisional surgical site, initial encounter Category: Surgical Plan Patient was been given local instructions which he is to continue and will see me as directed or p.r.n.. All questions answered Coding Level of Care Code Global (32550) Diagnoses Postop check Z09 Postoperative stitch abscess T81.41XA
== END 2024-02-18 10:33 | disposition home or self-care (01) ==
PROVIDERS: PCP Internal Medicine; Visit Provider Surgery
DX: Z09 Encounter for follow-up examination after completed treatment for conditions other than malignant neoplasm (principal); T81.41XA Infection following a procedure, superficial incisional surgical site, initial encounter
CPT/HCPCS: 99024

== ENCOUNTER → 2024-02-18 10:14 | Outpatient (BNVA) | payer BC, SELFPAY | PROVIDERS: PCP Internal Medicine; Visit Provider Surgery ==

== ENCOUNTER 2024-03-03 10:07 | Outpatient (AMB) | payer BC, SELFPAY ==
[2024-03-03 10:09] VITALS: BP 120/67; PULSE 75; BMI 25.1
--- NOTE | 2024-03-03 10:09 | MHC.OFFVIS ---
Vital Signs 03/03/24 10:09 Height 5 ft 8 in Weight 165 lb BMI 25.1 BP 120/67 Blood Pressure Location Rt brachial Position Sitting Pulse 75 Intake Visit Reasons: dressing change Intake Note: Patient here for wound check. Patient states he still has a little something under his belly button . Denies pain, or drainage. He is no longer covering the wound. Land Developer Required: No Accompanied by: Self / Same As Patient Allergies No Known Allergies Allergy (Verified 03/03/24 10:13) HPI Comments Details: Patient was asked to follow up. Is incisional stitch abscess wound is essentially completely healed. He has an eschar over this. Remaining incisions clean dry intact. He is having some irritation around the ostomy site. He has show me a picture of this. Trevin Fuchs nurse will address this once the examination with me as completed. [facility] Surgical History Status post Valorie procedure (01/23/24) Social History Household Members: None Housing: Apartment Do you presently have visiting nurse or other home services: No Alcohol intake: former Comment: X-RAY NOT INDICATED Patient Tobacco Use Status: Current everyday Tobacco user Tobacco use type: Cigarette Cigarette Packs Per Day: 1 Cigarettes Per Day: 20.0 Years Smoked: 40 e-Cigarette/Vaping Use: Currently Using Substance Use Type: Marijuana service: No Physical Exam Vital Signs: Last Vital Signs Pulse 75 03/03/24 10:09 BP 120/67 03/03/24 10:09 BMI result Body Mass Index 25.1 GI Other: As noted above abdomen is soft. Incision healing uneventfully with central small eschar. Ostomy with circumferentially skin irritation. Assessment & Plan Assessment & Plan (1) Status post Valorie procedure: Onset Date: 01/23/24 Comment: Colostomy, Valorie's pouch Dr. Kristian Verde Code(s): Z93.3 - Colostomy status Category: Medical Plan Current plan is to arrange for pre colostomy reversal screening colonoscopy (patient was never had colonoscopy before) as well as rectal stump evaluation. Patient will see me after the study and then arrangements will be made for colostomy reversal. All questions answered Coding Level of Care Code Global (68384) Diagnoses Status post Valorie procedure Z93.3
== END 2024-03-03 10:42 | disposition home or self-care (01) ==
PROVIDERS: PCP Internal Medicine; Visit Provider Surgery
DX: Z93.3 Colostomy status (principal)
CPT/HCPCS: 99024

== ENCOUNTER → 2024-03-03 10:07 | Outpatient (BNVA) | payer BC, SELFPAY | PROVIDERS: PCP Internal Medicine; Visit Provider Surgery ==

== ENCOUNTER 2024-05-01 10:53 | Outpatient (AMB) | payer BC, SELFPAY ==
--- NOTE | 2024-05-01 11:05 | A.OFFVIS_ITS ---
Vital Signs 05/01/24 11:06 Height 5 ft 8 in Weight 170 lb BMI 25.8 BP 122/70 Blood Pressure Location Rt brachial Position Sitting Pulse 82 Pulse Source Pulse Oximeter Pulse Oximetry (%) 99 Oxygen Delivery Method Room Air Intake Visit Reasons: discussion to reunite colon Intake Note: ESTABLISHED PATIENT for s/p colostomy FUV. Discuss upcoming procedure. Chief Complaint; Pt denies any specific concerns at this time. Ct Mri Technologist Required: No Accompanied by: Self / Same As Patient Allergies No Known Allergies Allergy (Verified 05/01/24 10:26) HPI Comments Details: Patient was status post screening colonoscopy prior to his colostomy reversal. This was done outside facility. Results were still pending but patient was states aside from 2 benign polyps and will well. Rectal stump was also evaluated. Patient was anxious to have his colostomy reversed as soon as possible. [facility] Surgical History Status post Valorie procedure (01/23/24) Social History Household Members: None Housing: Apartment Do you presently have visiting nurse or other home services: No Alcohol intake: former Comment: X-RAY NOT INDICATED Patient Tobacco Use Status: Current everyday Tobacco user Tobacco use type: Cigarette Cigarette Packs Per Day: 1 Cigarettes Per Day: 20.0 Years Smoked: 40 e-Cigarette/Vaping Use: Currently Using Substance Use Type: Marijuana service: No Physical Exam Vital Signs: Last Vital Signs Pulse 82 05/01/24 11:06 BP 122/70 05/01/24 11:06 Pulse Ox 99 05/01/24 11:06 Oxygen Delivery Method Room Air 05/01/24 11:06 BMI result Body Mass Index 25.8 Chest Other: Chest breath sounds bilaterally, HS 1 in 2 GI Other: Abdomen is incision infraumbilical healed. Ostomy functioning well Assessment & Plan Assessment & Plan (1) Status post Valorie procedure: Onset Date: 01/23/24 Comment: Colostomy, Valorie's pouch Dr. Kristian Verde Code(s): Z93.3 - Colostomy status Category: Medical Plan Risks, benefits, alternatives of colostomy reversal were reviewed with the patient included but not limited to bleeding, infection, numbness, pain, scarring, temporary ileostomy (bad) and the patient wishes to proceed. He will receive a full bowel prep day prior including fleets enema in rectal stump day prior. He understands. All questions answered. Arrangements were made for this on a day which is convenient for him. Coding Level of Care Code Est Pt Level 5 (98704) Diagnoses Status post Valorie procedure Z93.3
[2024-05-01 11:06] VITALS: BP 122/70; PULSE 82; O2SAT 99; BMI 25.8
== END 2024-05-01 11:09 | disposition home or self-care (01) ==
PROVIDERS: PCP Internal Medicine; Visit Provider Surgery
DX: Z93.3 Colostomy status (principal)
CPT/HCPCS: 99214

== ENCOUNTER → 2024-05-01 10:53 | Outpatient (BNVA) | payer BC, SELFPAY | PROVIDERS: PCP Internal Medicine; Visit Provider Surgery ==

== ENCOUNTER 2024-05-23 11:19 | Inpatient (IN) | payer BC, SELFPAY ==
[2024-05-22 10:18] VITALS: BP 123/66; PULSE 79; RESP 20; O2SAT 98; BMI 26.5
[2024-05-22 11:38] LABS: Hematocrit 47.2 % (42.0-52.0); Hemoglobin 16.3 g/dl (14.0-18.0); Mean Corpuscular HGB Conc 34.5 g/dl (31.0-36.0); Mean Corpuscular Hemoglobin 32.6 pg (27.0-33.0); Mean Corpuscular Volume 94.4 fL (80.0-98.0); Mean Platelet Volume 8.5 fL (9.4-12.4); Platelet Count 379 X10*3/uL (160-400); Red Cell Distribution Width 12.1 % (11.0-16.0); White Blood Count 9.3 X10*3/uL (4.8-10.8)
--- NOTE | 2024-05-22 12:06 | P.HPSUR_ITS ---
Pre-Procedural Eval Section A - 24 Hr Update-Section A only Date of Service: 05/23/24 The patient is an INPATIENT: Yes Changes since office visit: No Cold of Flu in the past 2 weeks, No New Medical Problems, No Changes in Medication and No Patient answered all questions Section B - Complete if H&P > 30 days Chief Complaint: Colostomy status Details of Present Illness: Patient was evaluated in [facility] yesterday by me Allergies: Allergies Allergy/AdvReac Type Severity Reaction Status Date / Time No Known Allergies Allergy Verified 05/01/24 10:26 Review of Systems Sugical H&P ROS: Negative: Constitution, Cardiovascular, Respiratory, Neurological, Psychiatric, Hem-Onc, Allergic/Immunologic, Gastrointestinal, Genitourinary, Musculoskeletal, Integumentary, Endocrine and Eyes/Ears/Nose/Throat Exam Surgical H&P Exam: Normal: HEENT, Normal: Heart, Normal: Lungs, Normal: Extremities, Normal: Abdomen, Normal: Skin and Normal: Neurological Plan I have reviewed the history and physical and performed a pertinent physical examination on my patient. No changes have occurred unless specified. Time Spent With Patient Time: Total time managing care of this patient today ____ minutes.
[2024-05-22 12:20] LABS: Alanine Aminotransferase 17 U/L (0-40); Albumin Level 4.2 g/dL (3.5-5.0); Alkaline Phosphatase 61 U/L (39-117); Anion Gap 11 (12-20); Aspartate Amino Transferase 22 U/L (5-37); Bilirubin Total 1.4 mg/dL (0.0-1.0); Blood Urea Nitrogen 17 mg/dL (9-16); Calcium 9.8 mg/dL (8.4-10.2); Carbon Dioxide 27 mmol/L (22-29); Chloride 108 mmol/L (96-108); Creatinine Clr Calc Pharmacy 77.8; Estimated Glomerular Filt Rate > 60; Glucose Random 90 mg/dL (60-115); Potassium 4.5 mmol/L (3.3-5.1); Sodium 141 mmol/L (135-145); Total Protein 7.4 g/dL (6.5-8.0)
[2024-05-23] VITALS (15 sets, daily range): BP systolic 98–141; BP diastolic 58–88; PULSE 71–97; RESP 12–18; TEMP 36.1–37.2; O2SAT 95–100; BMI 25.9
[2024-05-23] MEDS: Lactated Ringers 1,000 ML 100 ML IVCONT ×2 (10:24→17:52)
--- NOTE | 2024-05-23 11:43 | P.CONAN_ITS ---
Documented by User: Miguelina Abernathy NP 05/22/24 12:45 HPI - Anesthesia Eval Consult details Narrative: 63yo M for Colostomy Reversal, possible temporary Ileostomy s/p ex lap/colostomy 01/2024 with GA-ETT 7 PMFSH Active Problems Active Problems: All Active Problems Postoperative stitch abscess (Acute) Postop check (Acute) Status post Valorie procedure (Acute 01/23/24) Past Medical History Medical History (Updated 05/22/24 @ 10:35 by Gudelia Trujillo RN) Arthritis Heartburn Hyperlipidemia Diverticulitis Alcohol dependence Heart murmur Bowel obstruction Family History Family history of problems with anesthesia: No Surgical History Surgical History (Updated 05/22/24 @ 10:07 by Gudelia Trujillo RN) H/O colonoscopy Status post Valorie procedure (01/23/24) History of Problems with Anesthesia: No Social History Social History Household Members: None Housing: Apartment Are you a primary child day care teacher to a significant other at home: No Do you presently have visiting nurse or other home services: No Alcohol intake: former Comment: X-RAY NOT INDICATED Patient Tobacco Use Status: Current everyday Tobacco user Tobacco use type: Cigarette Cigarette Packs Per Day: 1 Cigarettes Per Day: 20 Years Smoked: 50 Smoked in Last 30 Days: Yes e-Cigarette/Vaping Use: Currently Using Use of substances other than those prescribed or required for medical reasons: Yes Substance Use Type: Marijuana Substance Use Type Other:: gummies Have you been hit, kicked, punched, or otherwise hurt by someone within the past year? If so, by whom?: No Spiritual Healthcare Practices: none Scientology Healthcare Practices: none Cultural Healthcare Practices: none Are you DNR?: No Advance Directives Information Provided: Yes (as above noted) Advance Directives on File: No Poor oral hygiene: No service: No Meds Allergies Allergy/AdvReac Type Severity Reaction Status Date / Time No Known Allergies Allergy Verified 05/01/24 10:26 Home Medications ?Medication ?Instructions ?Recorded ?Confirmed ?Last Taken ?Type multivitamin 1 tab PO DAILY 01/22/24 05/23/24 05/22/24 History Exam Height,Weight and Vital Signs: Height 5 ft 8 in Weight 78.925 kg Last Vital Signs Pulse 79 05/22/24 10:18 Resp 20 05/22/24 10:18 BP 123/66 05/22/24 10:18 Pulse Ox 98 05/22/24 10:18 O2 Del Method Room Air 05/22/24 10:18 Pertinent Lab Results Pertinent Lab Results: Laboratory Tests 05/22/24 05/22/24 11:08 11:09 WBC 9.3 RBC 5.00 Hgb 16.3 Hct 47.2 MCV 94.4 MCH 32.6 MCHC 34.5 RDW 12.1 Plt Count 379 MPV 8.5 L Absolute Nucleated RBC 0.000 Nucleated RBC % (auto) 0.0 Sodium 141 Potassium 4.5 Chloride 108 Carbon Dioxide 27 Anion Gap 11 L BUN 17 H Creatinine 0.94 Estim Creat Clear Calc 77.8 Estimated GFR > 60 Random Glucose 90 Calcium 9.8 D Total Bilirubin 1.4 H AST 22 ALT 17 Alkaline Phosphatase 61 Total Protein 7.4 Albumin 4.2 Blood Type A Positive Antibody Screen NEGATIVE Narrative Narrative: EKG 01/2024 Vent. Rate : 106 BPM Atrial Rate : 106 BPM P-R Int : 128 ms QRS Dur : 084 ms QT Int : 310 ms P-R-T Axes : 049 -10 027 degrees QTc Int : 411 ms Sinus tachycardia Otherwise normal ECG No previous ECGs available Assessment and Plan Assessment Anesthesia Assessment: Chart Reviewed Final Anesthetic Review Family History of Problems with Anesthesia: No History of Problems with Anesthesia: No Documented by User: Vera Giraldo DO 05/23/24 11:44 [facility] Past Medical History Medical History (Updated 05/22/24 @ 10:35 by Gudelia Trujillo, MAR) Arthritis Heartburn Hyperlipidemia Diverticulitis Alcohol dependence Heart murmur Bowel obstruction Family History Family history of problems with anesthesia: No Surgical History Surgical History (Updated 05/22/24 @ 10:07 by Gudelia Trujillo, MAR) H/O colonoscopy Status post Valorie procedure (01/23/24) History of Problems with Anesthesia: No Social History Social History Household Members: None Housing: Apartment Are you a primary child day care teacher to a significant other at home: No Do you presently have visiting nurse or other home services: No Alcohol intake: former Comment: X-RAY NOT INDICATED Patient Tobacco Use Status: Current everyday Tobacco user Tobacco use type: Cigarette Cigarette Packs Per Day: 1 Cigarettes Per Day: 20 Years Smoked: 50 Smoked in Last 30 Days: Yes e-Cigarette/Vaping Use: Currently Using Use of substances other than those prescribed or required for medical reasons: Yes Substance Use Type: Marijuana Substance Use Type Other:: gummies Have you been hit, kicked, punched, or otherwise hurt by someone within the past year? If so, by whom?: No Spiritual Healthcare Practices: none Scientology Healthcare Practices: none Cultural Healthcare Practices: none Are you DNR?: No Advance Directives Information Provided: Yes (as above noted) Advance Directives on File: No Poor oral hygiene: No service: No Meds Allergies Allergy/AdvReac Type Severity Reaction Status Date / Time No Known Allergies Allergy Verified 05/01/24 10:26 Home Medications ?Medication ?Instructions ?Recorded ?Confirmed ?Last Taken ?Type multivitamin 1 tab PO DAILY 01/22/24 05/23/24 05/22/24 History Exam Exam Date and Time: 05/23/24 1143 Height,Weight and Vital Signs: Height 5 ft 8 in Weight 78.925 kg Last Vital Signs Pulse 79 05/22/24 10:18 Resp 20 05/22/24 10:18 BP 123/66 05/22/24 10:18 Pulse Ox 98 05/22/24 10:18 O2 Del Method Room Air 05/22/24 10:18 Vital Signs Pulse Rate 79 05/22/24 10:18 Respiratory Rate 20 05/22/24 10:18 Blood Pressure 123/66 05/22/24 10:18 Pulse Oximetry 98 05/22/24 10:18 Oxygen Delivery Method Room Air 05/22/24 10:18 Pulse Rate 79 05/22/24 10:18 Respiratory Rate 20 05/22/24 10:18 Blood Pressure 123/66 05/22/24 10:18 Pulse Oximetry 98 05/22/24 10:18 Oxygen Delivery Method Room Air 05/22/24 10:18 Airway Mallampati Class: I TM Dist: >3cm Neck ROM: Full Loose/Missing/Broken Teeth: Yes (Edentulous) Heart: S1S2 Lungs: CTAB Assessment and Plan Assessment Anesthesia Assessment: Anesthesia Plan Discussed and Chart Reviewed Final Anesthetic Review Family History of Problems with Anesthesia: No History of Problems with Anesthesia: No NPO: Yes ASA Class: II Final Preanesthetic Review: No Changes in Pt Med Stat, Meds/Allgs Chart Reviewed, Consent Obtained/Reviewed and Anes Risks/Benef Reviewed Patient Risk: Low Procedure Risk: Low Anesthetic Plan Anesthetic Plan: GA, Regional Block (bilateral transversus abdominis plane block) and Agree w/ Assess. and Plan Disposition: Standard PACU
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
--- NOTE | 2024-05-23 14:24 | PHA.MEDREC ---
Pharmacy Consult ? Medication Reconciliation Pharmacy has completed the medication reconciliation. Reviewed med rec completed by nursing.
[2024-05-23] MEDS: HYDROmorphone HCl 0.5 MG/0.5 ML SYRINGE IVPUSH (15:30)
--- NOTE | 2024-05-23 15:59 | W.PM.OPN ---
Operative Note Operative Note Date of Service: 05/23/24 Narrative: Preoperative diagnosis: [] Colostomy Postop diagnosis: [] The same Procedure [] exploratory laparotomy, enterolysis, colostomy reversal, trans anal colorectal anastomosis, flexible sigmoidoscopy, takedown splenic flexure Surgeon: [] Kristian Tumbling Instructor: [] Alvaro Pratt Type of Anesthesia: [] General, regional block per anesthesia Indication for surgery: [] For colostomy reversal. Intraoperative findings demonstrated moderate adhesions with small bowel and omentum to the pelvis sidewall and abdominal wall,necessitating enterolysis and adhesionolysis. Once adequately mobilized, rectal/sigmoid stump was trimmed and uneventful trans anal EEA colorectal anastomosis performed. Two complete donuts obtained. Flexible sigmoidoscopy demonstrated the anastomosis to be intact and air tight. Findings: [] Patient brought to the operating room, placed on operative table supine position, after an adequate level of general anesthesia was induced, patient was placed in lithotomy position, a rectal exam was performed with some residual mucus plug removed. Ostomy site was closed using running 2-0 silk suture. The abdomen and peritoneum were then prepped and draped in usual sterile fashion. Using a lower midline incision, excising the prior scar from the previous surgery, this carried down through skin, subcu tissue, down to fascia. This was extended just to the left of midline. Abdominal cavity was opened, where adhesions were encountered of small bowel and omentum which were taken down using blunt, sharp, and Bovie dissection. Once adequately mobilized, next the ostomy site was approached using a transverse bi-elliptical incision and carried this down through skin, subcutaneous tissue, down to fascia where the ostomy was freed from fascial adhesions and returned to the abdominal cavity. Lateral peritoneal reflection was taken down up to the splenic flexure to allow mobilization of the proximal colon into the pelvis for tension free anastomosis. Recto-sigmoid junction stump was identified. Because of the persistent distal sigmoid, it was decided to perform resection of this area using combination of Bovie, ligature device, and contour stapler to transect the bowel at the desired location. Next the proximal colon was dilated with sizers and a 28 Sloven[place] anvil placed after pursestring suture was placed and fired. Trans anal EEA stapler was advanced through the rectal stump and connected to the anvil with appropriate orientation. This was uneventfully closed and fired with 2 complete donuts obtained. Abdominal cavity was filled with saline and flexible sigmoid endoscopy performed and anastomosis was intact and airtight. Abdominal cavity was copiously irrigated and secured hemostasis. Anastomosis was once again evaluated and was intact, under no tension and well-perfused. Ostomy site fascia was closed using running 1. Maxon suture. Skin was closed using widely spaced interrupted inverted dermal 3-0 Vicryl sutures followed by skin meagan. Midline wound underwent mass closure using 1. Looped PDS. Skin was closed using spaced interrupted inverted dermal 3-0 Vicryl sutures followed by Steri-Strips and sterile dressings. Sponge, needle, and instrument counts reported correct. Patient tolerated the procedure well and emerged from anesthesia stable condition. EBL minimal
[2024-05-23] MEDS: Acetaminophen 1,000 MG/100 ML PIGGYBACK 400 MG IV (17:59)
[2024-05-23] MEDS: Calcium Carbonate 750 MG TAB.CHEW PO (20:55)
[2024-05-24] MEDS: Acetaminophen 1,000 MG/100 ML PIGGYBACK 400 MG IV ×3 (01:02→19:18)
[2024-05-24] MEDS: Lactated Ringers 1,000 ML 100 ML IVCONT (02:42)
[2024-05-24] MEDS: HYDROmorphone HCl 0.5 MG/0.5 ML SYRINGE IVPUSH ×4 (04:30→16:21)
[2024-05-24 05:41] LABS: MANUAL DIFF FLAG NO
[2024-05-24 06:04] LABS: Anion Gap 13 (12-20); Blood Urea Nitrogen 10 mg/dL (9-16); Calcium 9.4 mg/dL (8.4-10.2); Carbon Dioxide 20 mmol/L (22-29); Chloride 108 mmol/L (96-108); Creatinine Clr Calc Pharmacy 80.3; Estimated Glomerular Filt Rate > 60; Glucose Fasting 149 mg/dL (60-99); Potassium 4.5 mmol/L (3.3-5.1); Sodium 136 mmol/L (135-145)
[2024-05-24 06:05] LABS: Basophils Percent Auto 0.1 % (0-2); Eosinophils Percent Auto 0.1 % (0-4); Hematocrit 40.6 % (42.0-52.0); Hemoglobin 14.6 g/dl (14.0-18.0); Imm Gran Abs Auto 0.09 X10*3/uL (0.00-0.03); Imm Gran Pct Auto 0.5 % (0.0-0.4); Lymphocytes Absolute Auto 1.2 X10*3/uL (1.2-4.9); Lymphocytes Percent Auto 6.8 % (20-40); Mean Corpuscular Volume 91.9 fL (80.0-98.0); Mean Platelet Volume 8.8 fL (9.4-12.4); Monocytes Absolute Auto 0.8 X10*3/uL (0.1-1.2); Monocytes Percent Auto 4.7 % (2-11); Neutrophils Absolute Auto 15.5 x10*3/uL (2.0-8.3); Neutrophils Percent Auto 87.8 % (45-73); Platelet Count 339 X10*3/uL (160-400); Red Blood Count 4.42 X10*6/uL (4.60-5.80); Red Cell Distribution Width 11.8 % (11.0-16.0); White Blood Count 17.7 X10*3/uL (4.8-10.8)
[2024-05-24 07:44] VITALS: BP 135/68; PULSE 69; RESP 16; TEMP 37.1; O2SAT 96
[2024-05-24] MEDS: Calcium Carbonate 750 MG TAB.CHEW PO ×3 (11:00→19:27)
[2024-05-24] MEDS: Nicotine 14 MG PATCH.TD24 TRANSDERMA (13:34)
--- NOTE | 2024-05-24 13:54 | P.PNGS_ITS ---
Subjective Subjective Date of Service: 05/24/24 Interval history: Patient has had uneventful evening. Vital signs stable. Tolerating liquid diet. No flatus or stool yet. Physical Exam 2 Vital Signs: Vital Signs: Last Vital Signs Temp 98.7 F 05/24/24 07:44 Pulse 69 05/24/24 07:44 Resp 16 05/24/24 07:44 BP 135/68 05/24/24 07:44 Pulse Ox 96 05/24/24 07:44 O2 Del Method Room Air 05/24/24 07:44 O2 Flow Rate 2 05/23/24 15:50 FiO2 37 05/23/24 15:50 BMI result Body Mass Index 25.9 GI: Other: Abdomen is soft. Incisions clean dry and intact. Dressings changed. Objective Data Active Medications Calcium Carbonate (Calcium Carbonate 750 Mg Tab.Chew) 750 mg PO Q4H PRN PRN Reason: Heartburn Last Admin: 05/24/24 11:00 Dose: 750 mg Documented By: DEONNA Hydromorphone HCl (Hydromorphone Hcl 0.5 Mg/0.5 Ml Syringe) 0.5 mg IVPUSH Q4H PRN; Protocol PRN Reason: Pain, Severe (Pain Scale 7-10) Last Admin: 05/24/24 12:28 Dose: 0.5 mg Documented By: NEHEMIAH Acetaminophen (Ofirmev) 1,000 mg in 100 mls @ 400 mls/hr IV Q6H [facility] Last Admin: 05/24/24 12:42 Dose: Not Given Documented By: NEHEMIAH Non-Admin Reason: over limit Magnesium Hydroxide (Milk Of Magnesia 30 Ml Oral.Susp) 30 ml PO DAILY PRN PRN Reason: Constipation Melatonin (Melatonin 3 Mg Tablet) 6 mg PO BEDTIME PRN PRN Reason: Insomnia Nicotine (Nicotine 14 Mg Patch.Td24) 14 mg TRANSDERMA DAILY [facility] Last Admin: 05/24/24 13:34 Dose: 14 mg Documented By: NEHEMIAH Ondansetron HCl (Ondansetron Hcl 4 Mg/2 Ml Vial) 4 mg IVPUSH Q6H PRN PRN Reason: Nausea and Vomiting Oxycodone HCl (Oxycodone Hcl Immed Release 5 Mg Tablet) 5 mg PO Q4H PRN PRN Reason: Pain, Moderate(Pain Scale 4-6) Sodium Chloride (0.9 % Sodium Chloride Flush 3 Ml Syringe) 3 ml IVFLUSH QSHIFT [facility] Last Admin: 05/24/24 11:53 Dose: Not Given Documented By: NEHEMIAH Non-Admin Reason: IV Running Labs 05/24/24 05:35 05/24/24 05:35 Labs: Laboratory Results - last 24 hr 05/24/24 05:35 MCV 91.9 MCH 33.0 MCHC 36.0 RDW 11.8 Plt Count 339 MPV 8.8 L Immature Gran % (Auto) 0.5 H Neut % (Auto) 87.8 H Lymph % (Auto) 6.8 L [place] % (Auto) 4.7 Eos % (Auto) 0.1 Baso % (Auto) 0.1 Lymph # (Auto) 1.2 [place] # (Auto) 0.8 Eos # (Auto) 0.0 Baso # (Auto) 0.0 Abs Immat Gran (auto) 0.09 H Absolute Neuts (auto) 15.5 H Absolute Nucleated RBC 0.000 Nucleated RBC % (auto) 0.0 Anion Gap 13 Estim Creat Clear Calc 80.3 Estimated GFR > 60 Fasting Glucose 149 H Calcium 9.4 Procedures Date of Service Date of Service: 05/24/24 Progress Note: A&P Assessment and plan (1) History of colostomy reversal: Status: Acute Plan DC Pena, encourage out of bed/ambulation, full liquid diet, Hep-Lock IV. DC skin meagan tomorrow. All questions answered. Time Spent With Patient Time: Total time managing care of this patient today ____ minutes. Quality Stroke Does the patient have a stroke diagnosis?: No VTE Prior VTE?: No VTE Risk Level:: Surgical - low VTE Device Contraindication: N/A - Device Ordered VTE Drug Contraindication: Patient Refused
[2024-05-24 15:26] VITALS: BP 137/65; PULSE 99; RESP 18; TEMP 36.4; O2SAT 95
--- NOTE | 2024-05-24 16:12 | MHC.CM.PN ---
PT REPORTS HE LIVES ALONE AND IS INDEPENDENT WITH CARE HE USES NO DME, HAS NO SERVICES, WORKS AND DRIVES HE SAYS HE HAS A HCP NAMING HIS DAUGHTER, JEF, HIS AGENT, COPY REQUESTED PCP: BRIGITTE HOLBROOK DCP: HOME VIA PRIVATE TRANSPORT
--- NOTE | 2024-05-24 17:47 | HO.POSTANES ---
Post Anesthesia Evaluation Post Anesthesia Evaluation Date of Service: 05/24/24 Vital Signs: Vital Signs Temp Pulse Resp BP Pulse Ox O2 Del Method 05/24/24 15:26 97.6 F 99 18 137/65 95 Room Air 05/24/24 07:44 98.7 F 69 16 135/68 96 Room Air Anesthesia: General Endotracheal-GETA Mental Status: Awake Pain Control: Satisfactory Nausea/Vomiting: None Hydration: Adequate Anesthesia-Related Issues: No Anes. Related Issues
[2024-05-24] MEDS: 0.9 % Sodium Chloride Flush 3 ML SYRINGE IVFLUSH (19:21)
[2024-05-24] MEDS: oxyCODONE HCl Immed Release 5 MG TABLET PO (19:26)
[2024-05-24 23:11] VITALS: BP 141/81; PULSE 90; RESP 17; TEMP 36.7; O2SAT 95
[2024-05-25] MEDS: Acetaminophen 1,000 MG/100 ML PIGGYBACK 400 MG IV ×5 (01:17→23:21)
[2024-05-25] MEDS: Calcium Carbonate 750 MG TAB.CHEW PO ×2 (01:35→11:00)
[2024-05-25 07:13] VITALS: BP 126/76; PULSE 74; RESP 16; TEMP 36.7; O2SAT 95
[2024-05-25] MEDS: Nicotine 14 MG PATCH.TD24 TRANSDERMA (08:07)
[2024-05-25] MEDS: oxyCODONE HCl Immed Release 5 MG TABLET PO (08:07)
[2024-05-25] MEDS: 0.9 % Sodium Chloride Flush 3 ML SYRINGE IVFLUSH ×3 (08:12→23:23)
[2024-05-25] MEDS: Pantoprazole Sodium 40 MG/10 ML VIAL IVPUSH (13:31)
[2024-05-25 15:23] VITALS: BP 132/71; PULSE 76; RESP 18; TEMP 36.6; O2SAT 95
--- NOTE | 2024-05-25 16:10 | PM.PNGS ---
Subjective Subjective Date of Service: 05/25/24 Interval history: Aside from reflux symptoms, patient was doing well. He is tolerating diet. Passing some flatus and stool. Had a shower today. He is up ambulating. Doing his incentive spirometer. Physical Exam Vital Signs: Vital Signs: Last Vital Signs Temp 97.8 F 05/25/24 15:23 Pulse 76 05/25/24 15:23 Resp 18 05/25/24 15:23 BP 132/71 05/25/24 15:23 Pulse Ox 95 05/25/24 15:23 O2 Del Method Room Air 05/25/24 15:23 O2 Flow Rate 2 05/23/24 15:50 FiO2 37 05/23/24 15:50 BMI result Body Mass Index 25.9 GI: Other: Abdomen is soft, benign. Wounds clean dry and intact healing well Objective Data Active Medications Calcium Carbonate (Calcium Carbonate 750 Mg Tab.Chew) 750 mg PO Q4H PRN PRN Reason: Heartburn Last Admin: 05/25/24 11:00 Dose: 750 mg Documented By: DEONNA Hydromorphone HCl (Hydromorphone Hcl 0.5 Mg/0.5 Ml Syringe) 0.5 mg IVPUSH Q4H PRN; Protocol PRN Reason: Pain, Severe (Pain Scale 7-10) Last Admin: 05/24/24 16:21 Dose: 0.5 mg Documented By: NEHEMIAH Acetaminophen (Ofirmev) 1,000 mg in 100 mls @ 400 mls/hr IV Q6H [facility] Last Infusion: 05/25/24 13:06 Dose: Infused Documented By: DEONNA Magnesium Hydroxide (Milk Of Magnesia 30 Ml Oral.Susp) 30 ml PO DAILY PRN PRN Reason: Constipation Melatonin (Melatonin 3 Mg Tablet) 6 mg PO BEDTIME PRN PRN Reason: Insomnia Nicotine (Nicotine 14 Mg Patch.Td24) 14 mg TRANSDERMA DAILY [facility] Last Admin: 05/25/24 08:07 Dose: 14 mg Documented By: DEONNA Ondansetron HCl (Ondansetron Hcl 4 Mg/2 Ml Vial) 4 mg IVPUSH Q6H PRN PRN Reason: Nausea and Vomiting Oxycodone HCl (Oxycodone Hcl Immed Release 5 Mg Tablet) 5 mg PO Q4H PRN PRN Reason: Pain, Moderate(Pain Scale 4-6) Last Admin: 05/25/24 08:07 Dose: 5 mg Documented By: DEONNA Sodium Chloride (0.9 % Sodium Chloride Flush 3 Ml Syringe) [facility] Last Admin: 05/25/24 08:12 Dose: 3 ml Documented By: DEONNA Labs 05/24/24 05:35 05/24/24 05:35 Procedures Date of Service Date of Service: 05/25/24 Progress Note: A&P Assessment and plan (1) History of colostomy reversal: Status: Acute Plan Continue current plan; out of bed/ambulate, diet as tolerated, incentive spirometry, consider discharge tomorrow if patient was doing well Time Spent With Patient Time: Total time managing care of this patient today ____ minutes. Quality Stroke Does the patient have a stroke diagnosis?: No VTE Prior VTE?: No VTE Risk Level:: Surgical - low VTE Device Contraindication: N/A - Device Ordered VTE Drug Contraindication: Patient Refused
[2024-05-25 23:41] VITALS: BP 111/69; PULSE 72; RESP 14; TEMP 36.5; O2SAT 96
--- NOTE | 2024-05-26 06:56 | PM.PNGS ---
Subjective Subjective Date of Service: 05/26/24 <Esoko Networkso - Last Filed: 05/26/24 07:04> 05/26/24 <Dominique John PA-C - Last Filed: 05/26/24 07:47> 05/26/24 <Ammon Townsend MD - Last Filed: 05/26/24 08:22> Interval history: Uneventful night, patient reports minimal appetite after episode of reflux yesterday AM post breakfast. Managed with pantoprazole and felt improvement. <Esoko Networkso - Last Filed: 05/26/24 07:04> Physical Exam Vital Signs: Vital Signs: Last Vital Signs Temp 97.7 F 05/25/24 23:41 Pulse 72 05/25/24 23:41 Resp 14 05/25/24 23:41 BP 111/69 05/25/24 23:41 Pulse Ox 96 05/25/24 23:41 O2 Del Method Room Air 05/25/24 23:41 O2 Flow Rate 2 05/23/24 15:50 FiO2 37 05/23/24 15:50 BMI result Body Mass Index 25.9 <Esoko Networkso - Last Filed: 05/26/24 07:04> Const: General: alert and awake <Esoko Networkso - Last Filed: 05/26/24 07:04> Orientation/consciousness: patient oriented x3 <Esoko Networkso - Last Filed: 05/26/24 07:04> Resp: Effort & Inspection: normal respiratory effort and able to speak in complete sentences <Esoko Networkso - Last Filed: 05/26/24 07:04> Cardio: Rate: regular rate <Esoko Networkso - Last Filed: 05/26/24 07:04> Rhythm: regular rhythm <Esoko Networkso - Last Filed: 05/26/24 07:04> Peripheral pulses: radial pulses present <Esoko Networkso - Last Filed: 05/26/24 07:04> GI: Other: Dressings intact on incision site Mild tenderness to palpation near incision site Abdomen soft <Esoko Networkso - Last Filed: 05/26/24 07:04> Other: wound meagan removed from old colostomy site, all incisions clean appearing Mild tenderness to palpation near incision site Abdomen soft <Dominique John PA-C - Last Filed: 05/26/24 07:47> Inspection: No distended <Dominique John PA-C - Last Filed: 05/26/24 07:47> Skin: General skin exam: no rashes or lesions noted <Dominique John PA-C - Last Filed: 05/26/24 07:47> Neuro: General: patient oriented x3 <Susan Carl - Last Filed: 05/26/24 07:04> Objective Data Active Medications Acetaminophen (Acetaminophen 325 Mg Tablet) 975 mg PO Q6H PRN PRN Reason: Pain, Mild 1-3,fever,headache Calcium Carbonate (Calcium Carbonate 750 Mg Tab.Chew) 750 mg PO Q4H PRN PRN Reason: Heartburn Last Admin: 05/25/24 11:00 Dose: 750 mg Documented By: DEONNA Hydromorphone HCl (Hydromorphone Hcl 0.5 Mg/0.5 Ml Syringe) 0.5 mg IVPUSH Q4H PRN; Protocol PRN Reason: Pain, Severe (Pain Scale 7-10) Last Admin: 05/24/24 16:21 Dose: 0.5 mg Documented By: NEHEMIAH Magnesium Hydroxide (Milk Of Magnesia 30 Ml Oral.Susp) 30 ml PO DAILY PRN PRN Reason: Constipation Melatonin (Melatonin 3 Mg Tablet) 6 mg PO BEDTIME PRN PRN Reason: Insomnia Nicotine (Nicotine 14 Mg Patch.Td24) 14 mg TRANSDERMA DAILY [facility] Last Admin: 05/25/24 08:07 Dose: 14 mg Documented By: DEONNA Ondansetron HCl (Ondansetron Hcl 4 Mg/2 Ml Vial) 4 mg IVPUSH Q6H PRN PRN Reason: Nausea and Vomiting Oxycodone HCl (Oxycodone Hcl Immed Release 5 Mg Tablet) 5 mg PO Q4H PRN PRN Reason: Pain, Moderate(Pain Scale 4-6) Last Admin: 05/25/24 08:07 Dose: 5 mg Documented By: DEONNA Sodium Chloride (0.9 % Sodium Chloride Flush 3 Ml Syringe) 3 ml IVFLUSH [facility] Last Admin: 05/25/24 23:23 Dose: 3 ml Documented By: RADHA <Susan Carl - Last Filed: 05/26/24 07:04> Labs CBC & Chem 7: 05/24/24 05:35 05/24/24 05:35 <Susan Carl - Last Filed: 05/26/24 07:04> Procedures Date of Service Date of Service: 05/26/24 <Susan Carl - Last Filed: 05/26/24 07:04> 05/26/24 <Dominique John PA-C - Last Filed: 05/26/24 07:47> 05/26/24 <Ammon Townsend MD - Last Filed: 05/26/24 08:22> Progress Note: A&P Assessment and plan (1) History of colostomy reversal: Status: Acute <Susan Carl - Last Filed: 05/26/24 07:04> Assessment and Plan: Edalannah is POD #3 from exploratory lap and colostomy reversal. Reports some 'burning' around the incision site, 3 softer/liquid bowel movements that are dark brown and he is now beginning to pass gas. Discussed his reflux symptoms from yesterday AM, feeling better now, advised sitting up while eating and avoiding laying back down right away, PPI helped him. Encouraged spirometry 10x every hour he is awake, increasing diet, and ambulation - he has felt strong doing so. <Susan Carl - Last Filed: 05/26/24 07:04> Edalannah is POD #3 from exploratory lap and colostomy reversal. Reports some 'burning' around the incision site, 3 softer/liquid bowel movements that are dark brown and he is now beginning to pass gas. Discussed his reflux symptoms from yesterday AM, feeling better now, advised sitting up while eating and avoiding laying back down right away, PPI helped him. Encouraged spirometry 10x every hour he is awake, increasing diet, and ambulation - he has felt strong doing so. Agree with above assessment. Patient feels well, has evidence of GI function, tolerated small amount of solid food yesterday. Pain fairly well controlled. VSS. Abd exam benign with clean incisions, wound meagan removed, appropriate post op tenderness. Will reassess later today for possible dc to home if continues to tolerate solid diet, pain remains well controlled. Patient comfortable with plan. <Dominique John PA-C - Last Filed: 05/26/24 07:47> George is POD #3 from exploratory lap and colostomy reversal. Reports some 'burning' around the incision site, 3 softer/liquid bowel movements that are dark brown and he is now beginning to pass gas. Discussed his reflux symptoms from yesterday AM, feeling better now, advised sitting up while eating and avoiding laying back down right away, PPI helped him. Encouraged spirometry 10x every hour he is awake, increasing diet, and ambulation - he has felt strong doing so. Agree with above assessment. Patient feels well, has evidence of GI function, tolerated small amount of solid food yesterday. Pain fairly well controlled. VSS. Abd exam benign with clean incisions, wound meagan removed, appropriate post op tenderness. Will reassess later today for possible dc to home if continues to tolerate solid diet, pain remains well controlled. Patient comfortable with plan. As noted above <Ammon Townsend MD - Last Filed: 05/26/24 08:22> Time Spent With Patient Time: Total time managing care of this patient today ____ minutes. <Susan Carl - Last Filed: 05/26/24 07:04> Quality Stroke Does the patient have a stroke diagnosis?: No <Susan Carl - Last Filed: 05/26/24 07:04> VTE Prior VTE?: No <Susan Carl - Last Filed: 05/26/24 07:04> VTE Risk Level:: Surgical - low <Susanbony Torreso - Last Filed: 05/26/24 07:04> VTE Device Contraindication: N/A - Device Ordered <Susan Carl - Last Filed: 05/26/24 07:04> VTE Drug Contraindication: Patient Refused <Susan Carl - Last Filed: 05/26/24 07:04>
[2024-05-26 07:14] VITALS: BP 126/74; PULSE 78; RESP 16; TEMP 37.4; O2SAT 97
[2024-05-26] MEDS: Acetaminophen 325 MG TABLET 975 MG PO (07:14)
[2024-05-26] MEDS: oxyCODONE HCl Immed Release 5 MG TABLET PO (07:14)
[2024-05-26] MEDS: Nicotine 14 MG PATCH.TD24 TRANSDERMA (07:15)
[2024-05-26] MEDS: 0.9 % Sodium Chloride Flush 3 ML SYRINGE IVFLUSH (07:21)
[2024-05-26 08:45] LABS: MANUAL DIFF FLAG NO
[2024-05-26 08:49] LABS: Basophils Absolute Auto 0.1 X10*3/uL (0.0-0.2); Basophils Percent Auto 0.7 % (0-2); Eosinophils Absolute Auto 0.3 X10*3/uL (0.0-0.4); Eosinophils Percent Auto 2.1 % (0-4); Hematocrit 44.9 % (42.0-52.0); Hemoglobin 15.3 g/dl (14.0-18.0); Imm Gran Abs Auto 0.03 X10*3/uL (0.00-0.03); Imm Gran Pct Auto 0.3 % (0.0-0.4); Lymphocytes Absolute Auto 2.7 X10*3/uL (1.2-4.9); Lymphocytes Percent Auto 22.7 % (20-40); Mean Corpuscular HGB Conc 34.1 g/dl (31.0-36.0); Mean Corpuscular Hemoglobin 32.7 pg (27.0-33.0); Mean Corpuscular Volume 95.9 fL (80.0-98.0); Mean Platelet Volume 9.1 fL (9.4-12.4); Monocytes Percent Auto 8.3 % (2-11); Neutrophils Absolute Auto 7.8 x10*3/uL (2.0-8.3); Neutrophils Percent Auto 65.9 % (45-73); Platelet Count 334 X10*3/uL (160-400); Red Blood Count 4.68 X10*6/uL (4.60-5.80); White Blood Count 11.8 X10*3/uL (4.8-10.8)
--- NOTE | 2024-05-26 12:42 | MHC.CM.PN ---
Patient medically cleared for dc home self care. Will transport via [facility] [employer].
--- NOTE | 2024-05-26 14:00 | PM.DS ---
DS: Providers Provider Date of Service: 05/26/24 Date of admission: 05/23/24 11:19 Date of discharge: 05/26/24 Primary care physician: Jo Sheehan MD Attending physician on admission: Ammon Townsend Attending physician on discharge: Ammon Townsend DS: Diagnosis Discharge Diagnosis (1) History of colostomy reversal: Status: Acute DS: Summary Hospital Course Hospital Course: HPI AT ADMISSION: Patient was status post screening colonoscopy prior to his colostomy reversal. This was done outside facility. Results were still pending but patient was states aside from 2 benign polyps and will well. Rectal stump was also evaluated. Patient was anxious to have his colostomy reversed as soon as possible. Colostomy reversal was planned with a full bowel prep day prior including fleets enema in rectal stump day prior. He understands. All questions answered. The patient now presents for the planned procedure. HOSPITAL COURSE: On 05/23/24, exploratory laparotomy, enterolysis, colostomy reversal, transanal colorectal anastomosis, flexible sigmoidoscopy, takedown splenic flexure was performed by Dr. Townsend without immediate complication. The patient tolerated the procedure well. He was admitted post operatively for observation. He had an uncomplicated recovery course. On POD #1, his leroy was removed. He was tolerating clear liquids and was advanced to full liquids. His IVF were discontinued. He was ambulated and his activity was increased. The following day he was passing flatus and had liquid BMs. He was advanced to a solid diet. On the day of discharge, POD #3, his pain was well controlled on oral analgesics and he was ambulating without difficulty. He was tolerating a solid diet without nausea/vomiting. He had good GI function. He was hemodynamically stable with a benign abd exam and clean incisions. Wound meagan were removed. He was discharged to home on 05/26/24 in stable condition. He is to follow up in the office in 1 week. Status at Discharge Functional status at discharge: independent ambulation Overall status at discharge: patient is progressing back to baseline Time Attestation Discharge Coordination Time (in mins): 40 Quality: Safe Use of Opioids Does Pt have an Active Cancer Diagnosis on the Problem List?: No Quality: Stroke Does the patient have a stroke diagnosis?: No Physical Exam Vital Signs: Vital Signs: Last Vital Signs Temp 99.3 F 05/26/24 07:14 Pulse 78 05/26/24 07:14 Resp 16 05/26/24 07:14 BP 126/74 05/26/24 07:14 Pulse Ox 97 05/26/24 07:14 O2 Del Method Room Air 05/26/24 07:14 O2 Flow Rate 2 05/23/24 15:50 FiO2 37 05/23/24 15:50 BMI result Body Mass Index 25.9 Const: General: comfortable, no acute distress and alert Orientation/consciousness: patient oriented x3 Resp: Effort & Inspection: normal respiratory effort GI: Other: midline incision clean, steris intact old colostomy site packing removed, scant drainage, no erythema Inspection: No distended Palpation (GI): Soft to palpation, Tenderness to palpation present (GI) (mild incisional) and no guarding Percussion: Yes normal to percussion Skin: General skin exam: no rashes or lesions noted Neuro: General: patient oriented x3 and moves all extremities DS: Data Data Completed and Pending Completed studies during hospitalization [Text1]: Procedures Bypass Sigmoid Colon to Cutaneous, Open Approach (01/22/24) Excision of Sigmoid Colon, Open Approach (01/22/24) Introduction of Anesthetic Agent into Peripheral Nerves and Plexi, Percutaneous Approach (01/22/24) Pending studies at discharge: Pending at discharge 05/23/24 13:46 Surgical [PTH] Routine Labs on day of discharge: Laboratory Results - last 24 hr 05/26/24 08:08 WBC 11.8 H RBC 4.68 Hgb 15.3 Hct 44.9 MCV 95.9 MCH 32.7 MCHC 34.1 RDW 12.0 Plt Count 334 MPV 9.1 L Immature Gran % (Auto) 0.3 Neut % (Auto) 65.9 Lymph % (Auto) 22.7 Parker % (Auto) 8.3 Eos % (Auto) 2.1 Baso % (Auto) 0.7 Lymph # (Auto) 2.7 Parker # (Auto) 1.0 Eos # (Auto) 0.3 Baso # (Auto) 0.1 Abs Immat Gran (auto) 0.03 Absolute Neuts (auto) 7.8 Absolute Nucleated RBC 0.000 Nucleated RBC % (auto) 0.0 Discharge Plan Discharge Anticipated Discharge Date/Time: 05/26/24 16:21 Patient Disposition: Home, Self-Care Discharge Diagnosis: s/p colostomy reversal Referrals: Ammon Townsend MD [Physician] - 1 Week Jo Sheehan MD [Primary Care Provider] - 1 Week Discharge Medications: New oxycodone 5 mg tablet 5 mg PO Q4H PRN (Reason: pain (scale score 7-10)) Qty: 24 0RF Rx Instructions: Partial Fill upon patient request. nicotine 21 mg/24 hr patch 24 hour 1 patch transdermal DAILY Qty: 14 0RF Continued multivitamin Tablet 1 tab PO DAILY Discontinued erythromycin 500 mg tablet 1,000 mg PO .3 times 1 Days Qty: 6 0RF Rx Instructions: Take 2 500mg tablets (1000mg) at 2pm, 3pm and 10pm on the day prior to the surgery. neomycin 500 mg tablet 1 g PO .3 times 0 Days Qty: 6 0RF Rx Instructions: Take 2 500mg tablets (1000mg) at 2pm, 3pm, and 10pm on the day prior to the surgery polyethylene glycol 3350 [Miralax] 17 gram/dose powder 238 g PO ONCE 1 Days Qty: 238 0RF Rx Instructions: On the day prior to your procedure, mix entire bottle with 64 oz of clear liquid (no red or purple dye) and divide in half. At 12 noon, begin drinking the first half of the mixture (approx. 1 8oz glass every 15 minutes) until gone. At 10pm, begin drinking the second half of the mixture in the same fashion, until gone. Discharge Orders: Discharge Order (Routine); Ordered 05/26/24 Ordered By: Dominique John Diet: Advance to usual diet Activity on Discharge: No heavy lifting Stand Alone Forms: Patient Portal Discharge page Print Language: Maltese Activity Restrictions/Additional Instructions: Apply an ice pack for short intervals (20 minutes on, followed by at least 20 minutes off) for the first 2 days. Do not apply heat. Do not use creams, lotions, or topical antibiotics. These can cause infection or allergic reaction. Ok to shower. You have steri strips (small white cloth strips) covering your incision- these will fall off ~1 week. Keep old ostomy site covered while it remains open and draining. Follow up in office with Dr. Townsend in 1 week. ([phone]) No heavy lifting (>10lbs) or strenuous activity! Call Your Doctor If: -Your temperature exceeds 101.5? F -You experience excessive pain or swelling -You have an unexpected reaction to medication -You have excessive bleeding -You experience continued vomiting/nausea -Your incision begins to separate -Your incision shows signs of infection such as increased redness, swelling, excessive pain, drainage (light blood or clear fluid is normal) or heat Care Plan Goals: Return to baseline health and resume normal activities following recovery period. 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
== END 2024-05-26 14:06 | disposition home or self-care (01) | DRG 223 ==
LOC: HO.SSSA 15:23 → HO.S3 17:21
PROVIDERS: Nurse Practitioner; Physician Assistant Surgical; Admitting Provider Surgery; PCP Internal Medicine; Visit Provider Surgery
PROC: 0DSN0ZZ Reposition Sigmoid Colon, Open Approach (ICD-10-PCS; CPT 44620; principal; 2024-05-23 11:40)
DX: Z43.3 Encounter for attention to colostomy (principal); F17.210 Nicotine dependence, cigarettes, uncomplicated; G89.18 Other acute postprocedural pain; Z71.6 Tobacco abuse counseling; Z79.899 Other long term (current) drug therapy
CPT/HCPCS: 36415; 80048; 80053; 85025; 85027; 86850; 86900; 86901; 88304; 88305; 88307; J0131; J0690; J1100; J1171; J2003; J2250; J2405; J2470; J2704; J2795; J3010; J7120

== ENCOUNTER → 2024-05-23 11:19 | Outpatient (BNV) | payer BC, SELFPAY | PROVIDERS: Admitting Provider Surgery; PCP Internal Medicine; Visit Provider Surgery | DX: Z98.890 Other specified postprocedural states (principal) | CPT/HCPCS: 44227; 99024; 99499 ==

== ENCOUNTER → 2024-05-29 10:13 | Outpatient (BNVA) | payer BC, SELFPAY | PROVIDERS: PCP Internal Medicine; Visit Provider Surgery | DX: Z09 Encounter for follow-up examination after completed treatment for conditions other than malignant neoplasm (principal); Z98.890 Other specified postprocedural states | CPT/HCPCS: 99211 ==

== ENCOUNTER 2024-06-03 09:31 | Outpatient (AMB) | payer BC, SELFPAY ==
--- NOTE | 2024-06-03 09:41 | A.OFFVIS_ITS ---
Vital Signs 06/03/24 09:49 Weight 172 lb BP 111/60 Blood Pressure Location Rt brachial Position Sitting Pulse 86 Intake Visit Reasons: s/p colostomy reversal Intake Note: Patient here s/p exploratory laparotomy, enterolysis, colostomy reversal, trans anal colorectal anastomosis, flexible sigmoidoscopy, takedown. Patient c/o: denies diarrhea, constipation. No longer taking rx pain meds. 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 He was seen office last week for an incisional seroma by otherwise he is doing well. He is tolerating a diet. Having regular bowel habits. Increasing his activity level. FORMERLY [facility], [facility]1983 Medical History (Updated 05/22/24 @ 10:35 by Gudelia Trujillo RN) Arthritis Heartburn Hyperlipidemia Diverticulitis Alcohol dependence Heart murmur Bowel obstruction Surgical History (Updated 06/03/24 @ 10:03 by Ammon Townsend MD) H/O colonoscopy Status post Valorie procedure (01/23/24) Social History Household Members: None Housing: Apartment Are you a primary patient care nursing assistant to a significant other at home: No Do you presently have visiting nurse or other home services: No Alcohol intake: former Comment: X-RAY NOT INDICATED Patient Tobacco Use Status: Current everyday Tobacco user Tobacco use type: Cigarette Cigarette Packs Per Day: 1 Cigarettes Per Day: 20.0 Years Smoked: 50 e-Cigarette/Vaping Use: Never Used Second Hand Smoke Exposure: No Substance Use Type: Marijuana service: No Physical Exam Vital Signs: Last Vital Signs Pulse 86 06/03/24 09:49 BP 111/60 06/03/24 09:49 GI Other: Abdomen is soft. Mid line incision well healed. Central part has small area of serous drainage but no evidence of any infection or cellulitis. Ostomy site also healing uneventfully. Open area was cauterized with silver nitrate followed by sterile dressing. Assessment & Plan Assessment & Plan (1) History of colostomy reversal: Code(s): Z98.890 - Other specified postprocedural states Category: Surgical (2) Postoperative stitch abscess: Code(s): T81.41XA - Infection following a procedure, superficial incisional surgical site, initial encounter Category: Surgical (3) Encounter for wound re-check: Code(s): Z51.89 - Encounter for other specified aftercare Category: Surgical Plan Patient has been given local wound instructions including avoiding strenuous activities next few weeks time and will otherwise follow-up p.r.n.. All questions answered. Paperwork regarding work were reviewed with Sudha. Coding Level of Care Code Global (98743) Diagnoses History of colostomy reversal Z98.890 Postoperative stitch abscess T81.41XA Encounter for wound re-check Z51.89
[2024-06-03 09:49] VITALS: BP 111/60; PULSE 86
--- OUTSIDE RECORDS SUMMARY | 2024-06-03 10:30 | XMS_ITS | Encounter Summary ---
Author Organization [facility] Address [address] [place] [address] Care Team Providers Care Tobacco Sweeper Name Role Phone Jo Anderson MD Primary Care Provider [phone] Reason for Visit * Reason Onset Date Comments hosp f/u 05/28/2024 Encounter Details Date Type Department Care Team (Late st Contact Info) Description 05/28/2024 Telephone Adult Medicine [address] [phone] Leeanne Villegas RN hosp f/u Social History Tobacco Use Types Packs/Day Years Used Date Smoking Tobacco: Every Day Cigarettes 0.5 40.3 Started: 1979; Last attempted to quit: 2017 Smokeless Tobacco: Never Alcohol Use Standard Drinks/Week Comments Not Currently 66 (1 standard drink = 0.6 oz pu re alcohol) Housing Instability Answer Date Recorde d Are you worried that in the next 2 months you may not have stable housing? No 05/30/2024 Food Access & Nutrition Answer Date Rec orded Do you have access to a vari ety of food including fruits and vegetables? Yes 05/30/2024 Health Literacy Answer Date Recorded How often do you need to hav e someone help you when you read instructions, pamphlets, or other written material from your doctor or pharmacy? Rarely 05/30/2024 Caregiver: How often do you need to have someone help you when you read instructions, pamphlets, or other written material from your doctor or pharmacy? Not on file 05/30/2024 Financial Risk Answer Date Recorded How hard is it for you to pa y for the very basics like food, housing, medical care, and air conditioning / heating? Somewhat hard 05/30/2024 Transportation Answer Date Recorded Has the lack of transportati on kept you from meetings, work, or from getting things needed for daily living? No Has the lack of transportati on kept you from medical appointments or from getting medications? No 05/30/2024 Social Isolation Answer Date Recorded How often do you feel lonely or isolated from th ose around you? Rarely 05/30/2024 Food Risk Answer Date Recorded Within the past 12 months we worried whether our food would run out before we got money to buy more. Never true 05/30/2024 Within the past 12 months th e food we bought just didn't last and we didn't have money to get more. Never true 05/30/2024 Dependent Care Answer Date Recorded Do you need help finding or paying for care for your loved ones. For example, child life assistant or elderly care for an older adult? No 05/30/2024 Education Answer Date Recorded Do you think completing more education or training, like finishing a GED, going to college, or learning a trade, would be helpful for you? No 05/30/2024 Employment and Income Answer Date Recor ded During the last four weeks, have you been actively looking for work? Yes 05/30/2024 Living Situation Answer Date Recorded What is your living situation? 0 05/30/2024 Interpersonal Safety Answer Date Record ed Physical Abuse 04/29/2024 Verbal Abuse 04/29/2024 Sex and Gender Information Value Date Recorded Sex Assigned at Male 04/28/2024 8:46 AM EDT Legal Sex Male 8:10 AM EST Gender Identity Male 04/28/2024 8:46 AM EDT Sexual Orientation Straight 04/29/2024 7: 20 AM EDT documented as of this encounter Progress Notes * Dahiana William RN - 05/29/2024 8:46 AM EDT Pt booked for 06/[address] anderson * Leeanne Villegas RN - 05/28/2024 12:31 PM EDT Admission date: 05/23/24 Discharge date: 05/26/24 Patient discharged from: [facility] with discharge diagnosis of Colostomy reversal Left vm for pt to return my call. documented in this encounter Plan of Treatment Upcoming Encounters Date Type Department Care Team (Late st Contact Info) Description 06/04/2024 10:30 AM EDT Office Visit Adult Medicine [facility] [address] [place] [address] Jo Anderson MD [address] [place] [address] documented as of this encounter Visit Diagnoses Not on filedocumented in this encounter Care Teams Tobacco Sweeper Relationship Specialty Start Date End Date Jo Anderson MD [address] [place] [id number] PCP - General 06/06/1997 documented as of this encounter
--- OUTSIDE RECORDS SUMMARY | 2024-06-03 10:30 | XMS_ITS ---
Author Organization [facility] [address] [place] [address] [address] [place] [address] Phone Care Team Providers Care Primary Clinician Name Role Phone Jo Sheehan MD Primary Care Provider [phone] Transitional Care Management Status:Ongoing (Active) Start date:05/26/2024 Enrollment date:05/28/2024 Enrollment reason:Identified using hospital discharge data Case Team Name Relationship Phone Evon Lopez LPN Care Manager(Responsible Staf f) Continued Care and Services Coordination
--- OUTSIDE RECORDS SUMMARY | 2024-06-03 10:30 | XMS_ITS | Clinical Summary ---
Author Organization [facility] [address] [facility] Address [address] [place] [address] Phone Care Team Providers Care Aluminum Molder Name Role Phone Jo Sheehan MD Primary Care Provider [phone] Allergies No known active allergies Medications bisacodyL [...] Encounters Date Type Department Care Team Description 05/28/2024 Telephone Adult Medicine [address] [phone] Leeanne Villegas RN hosp f/u 04/30/2024 Telephone Gastroenterology - [facility] [address] [phone] Cordelia Cleary MA Results 04/29/2024 8:17 AM EDT Anesthesia Event [facility] Endoscopy [address] [place] [address] Mallory Silva MD 04/29/2024 7:24 AM EDT - 04/29/2024 11:59 PM EDT Hospital Encounter [facility] [address] [place] [phone] Adrián Hill MD Decandio, Laura, CRNA Spencer, Mark A, MD Colon cancer screening Discharge Disposition: Home or Self Care 04/18/2024 Telephone Adult Medicine [facility] [address] [place] [phone] Jo Sheehan MD Results (Echo ) 04/15/2024 7:00 AM EST Ancillary Procedure [facility] - [address] [place] [phone] Cardiac murmur 04/08/2024 9:20 AM EST Office Visit Gastroenterology - [address] [place] [phone] Felecia Casiano PA Colon cancer screening (Primary Dx) 03/10/2024 11:00 AM EST Office Visit Adult Medicine [facility] [address] [place] [phone] Marques Singleton PA Acute pain of right shoulder (Primary Dx); Diverticulitis; Alcohol abuse from Last 3 Months Surgical History Surgery Date Site/Laterality Comments COLOSTOMY Medical History Medical History Date Comments Diverticulitis DX:Diverticuliti s S/P colostomy ([facility] V24, [facility] V28) Alcohol use Hyperlipidemia Family [...] care for your loved ones. For example, exceptional children's teacher or elderly care for an older adult? [...] 04/15/2024 7:28 AM EST Plan of Treatment Upcoming Encounters Date Type Department Care Team (Late st Contact Info) Description 06/04/2024 10:30 AM EDT Office Visit Adult Medicine [facility] [address] [place] [phone] Jo Sheehan MD [address] [place], [place] [phone] Health Maintenance Due Date Last Done Comments DTaP,Tdap,and Td Vaccines (1 - Tdap) 10/28/1979 Hepatitis A Vaccines (1 of 2 - Risk 2-dose series) 10/28/1979 Pneumococcal Vaccine: 50+ Years (1 of 2 - PCV) 10/28/1979 Pneumococcal Vaccine: Pediatrics (0 to 5 Years) and At-Risk Patients (6 to 64 Years) (1 of 2 - PCV) 10/28/1979 Zoster Vaccines (1 of 2) 2010 HIV Screening 01/28/2022 Lung Cancer Screening (Low Dose CT) 01/28/2022 COVID-19 Vaccine ( season) 2023 01/05/2023, 12/28/2021, 06/17/2021, Additional history exists Influenza Vaccine (Season Ended) 2024 Depression Screening 05/30/2025 05/30/2024 Social Influencers of Health Screening 05/30/2025 05/30/2024 Cholesterol Screening (Lipid Panel) 01/17/2027 01/17/2022 Colorectal [...] Routine 04/15/2024 7:29 AM EST Cardiac murmur HEPATITIS C SCREENING Routine 01/17/2022 LIPID PANEL Routine 01/17/2022 from Last 3 Months or Most Recently Relevant to Health Maintenance Results * FLEXIBLE SIGMOIDOSCOPY Anesthesia - MAC; [facility] ENDOSCOPY (04/29/2024 8:42 AM EDT) Anatomical Region [...] office PRN. Narrative 04/29/2024 8:45 AM EDT [facility] GI Patient Name: George Caldwell Procedure Date: [...] Procedure Code(s): ? --- Professional --- ? 51271, Sigmoidoscopy, flexible; with removal of ? tumor(s), polyp(s), or other lesion(s) by snare ? technique Diagnosis Code(s): ? --- Professional --- ? K57.32, Diverticulitis of large intestine without ? perforation or abscess without bleeding ? D12.6, Benign neoplasm of colon, unspecified CPT copyright 2020 [employer]. All rights reserved. The codes documented in this report are preliminary and upon medical biller coder review may be revised to meet current compliance requirements. Adrián Hill MD 04/29/2024 8:44:44 AM This report has been signed electronically.Adrián Hill MD Number of Addenda: 0 Note Initiated On: 04/29/2024 8:31 AM Scope In: Scope Out: ? Endoscopy Department at [facility] - [address] [place] [address], ? [place] [address] Procedure Note Adrián Hill MD - 04/29/2024 [facility] GI Patient Name: George Caldwell Procedure Date: [...] without abnormality. Procedure Code(s): --- Professional --- 46935, Sigmoidoscopy, flexible; with removal of tumor(s), polyp(s), or other lesion(s) by snare technique Diagnosis Code(s): --- Professional --- K57.32, Diverticulitis of large intestine without perforation or abscess without bleeding D12.6, Benign neoplasm of colon, unspecified CPT copyright 2020 [employer]. All rights reserved. The codes documented in this report are preliminary and upon medical biller coder reviewmay be revised to meet current compliance requirements. Adrián Hill MD 04/29/2024 8:44:44 AM This report has been signed electronically.Adrián Hill MD Number of Addenda: 0 Note Initiated On: 04/29/2024 8:31 AM Scope In: Scope Out: Endoscopy Department at [facility] - [address] [place] [phone] IMPRESSION: - Two 6 to 7 mm [...] ORDERABLES Final Result * COLONOSCOPY Anesthesia - MAC; [facility] ENDOSCOPY (04/29/2024 8:42 AM EDT) Anatomical Region Laterality Modality Other 04/29/2024 8:11 AM EDT Impressions 04/29/2024 8:41 AM EDT - Diverticulosis in the sigmoid colon. ? - The examination was otherwise normal. ? - No specimens collected. Recommendation: ?- Perform a flexible sigmoidoscopy today. Narrative 04/29/2024 8:41 AM EDT [facility] GI Patient Name: George Caldwell Procedure Date: [...] Procedure Code(s): ? --- Professional --- ? 72887, Colonoscopy through stoma; diagnostic, ? including collection of specimen(s) by brushing or ? washing, when performed (separate procedure) Diagnosis Code(s): ? --- Professional --- ? Z12.11, Encounter for screening for malignant neoplasm ? of colon ? K57.30, Diverticulosis of large intestine without ? perforation or abscess without bleeding CPT copyright 2020 [employer]. All rights reserved. The codes documented in this report are preliminary and upon medical biller coder review may be revised to meet current compliance requirements. Adrián Hill MD 04/29/2024 8:41:08 AM This report has been signed electronically.Adrián Hill MD Number of Addenda: 0 Note Initiated On: 04/29/2024 8:11 AM Scope In: Scope Out: ? Endoscopy Department at [facility] - [address] [place] [address], ? [place] [address] Procedure Note Adrián Hill MD - 04/29/2024 [facility] GI Patient Name: George Caldwell Procedure Date: [...] without abnormality. Procedure Code(s): --- Professional --- 40581, Colonoscopy through stoma; diagnostic, including collection of specimen(s) by brushing or washing, when performed (separate procedure) Diagnosis Code(s): --- Professional --- Z12.11, Encounter for screening for malignantneoplasm of colon K57.30, Diverticulosis of large intestine without perforation or abscess without bleeding CPT copyright 2020 [employer]. All rights reserved. The codes documented in this report are preliminary and upon medical biller coder reviewmay be revised to meet current compliance requirements. Adrián Hill MD 04/29/2024 8:41:08 AM This report has been signed electronically.Adrián Hill MD Number of Addenda: 0 Note Initiated On: 04/29/2024 8:11 AM Scope In: Scope Out: Endoscopy Department at [facility] - [address] [place] [phone] IMPRESSION: - Diverticulosis in the sigmoid colon. - The examination was otherwise normal. - No specimens collected. Recommendation: - Perform a flexible sigmoidoscopy today. us Adrián Hill MD GI~PROCEDURE ORDERABLES Final Result * Tissue exam (04/29/2024 8:37 AM EDT) Final Diagnosis A. Colon, polyps x2 at 20cm: - Hyperplastic polyps x2. 04/30/2024 8:52 AM EDT [facility] Gross Description A. Colon, polyps x2 at 20cm: Labeled colon polyp x 2 . Received in formalin are two pink-red polypoid mucosal tissue fragments. The margins are inked black. The specimen is submitted in toto in one cassette, two pieces, multiple levels on one slide. DAVID 04/30/2024 8:52 AM EDT [facility] Disclaimer Unless otherwise specified, all tissue is 10% NB formalin fixed and paraffin embedded. 04/30/2024 8:52 AM EDT [facility] Tissue Colon structure / Unknown 04/29/2024 8:37 AM EDT 04/29/2024 9:48 AM EDT us Adrián Hill MD LAB PATHOLOGY ORDERABLES Vy l Result [facility] [address] [place] [address], [place] [phone] * TRANSTHORACIC ECHOCARDIOGRAM (TTE) COMPLETE (04/15/2024 7:29 AM EST) Left Atrium Minor [place] 5.8 cm CV PACS Left Atrium Major [place] 5.5 cm CV PACS LA Area Sys [...] Volume 64 mL CV PACS MV Deceleration [place] 3.5 m/s2 CV PACS E Wave Deceleration [...] Details Overall the study quality was adequate. Jo Sheehan MD CV ECHO PROCEDURES Final Result * Hepatitis C Screening (01/17/2022) Hepatitis C Screening abstracted Historical Provider HEALTH MAINTENANCE Final Result * (ABNORMAL) Lipid panel (01/17/2022) LDL/HDL Ratio 3 0 - 4 Triglycerides 83 0 - 150 mg/dL Cholesterol 220(A) 0 - 200 mg/dL HDL 77 >=40 mg/dL LDL Cholesterol 127(A) 0 - 100 mg/dL Blood Venous blood specimen / Unknown Historical Provider LAB BLOOD ORDERABLES Vy l Result from Last 3 Months or Most Recently Relevant to Health Maintenance Insurance [facility] Care Teams Aluminum Molder Relationship Specialty Start Date End Date Jo Sheehan MD [address] [place] [address] (work) [facility] - General 06/06/1997
== END 2024-06-03 10:01 | disposition home or self-care (01) ==
LOC: HO.HGS 09:32
PROVIDERS: PCP Internal Medicine; Visit Provider Surgery
DX: Z98.890 Other specified postprocedural states (principal); T81.41XA Infection following a procedure, superficial incisional surgical site, initial encounter; Z51.89 Encounter for other specified aftercare
CPT/HCPCS: 99024

== ENCOUNTER 2024-06-17 11:18 | Outpatient (AMB) | payer BC, SELFPAY ==
--- NOTE | 2024-06-17 11:19 | MHC.OFFVIS ---
Vital Signs 06/17/24 11:25 Weight 175 lb BP 115/60 Blood Pressure Location Rt brachial Position Sitting Pulse 77 Intake Visit Reasons: persistent drainage from abd incision Intake Note: Patient here today c/o: persistent drainage form incision site on mid abdomen. 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 He underwent exploratory laparotomy, enterolysis, colostomy reversal, trans anal colorectal anastomosis, flexible sigmoidoscopy, takedown splenic flexure on 05/23/24 for hx of diverticular stricture requiring vicki procedure. He tolerated the procedure well. He had small area centrally of his midline incision that had serous drainage without evidence of infection or cellulitis and silver nitrate was applied at his last follow up visit. He reports continued drainage from the area, pink tinged thin fluid. He denies abdominal pain, fever, chills, nausea, vomiting, diarrhea. He is eating ok and moving his bowels without difficulty. 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 [facility] Medical History (Updated 05/22/24 @ 10:35 by Gudelia Trujillo RN) Arthritis Heartburn Hyperlipidemia Diverticulitis Alcohol dependence Heart murmur Bowel obstruction Surgical History (Updated 06/03/24 @ 10:03 by Ammon Townsend MD) H/O colonoscopy Status post Vicki procedure (01/23/24) Social History Household Members: None Housing: Apartment Are you a primary ocular care technician to a significant other at home: No Do you presently have visiting nurse or other home services: No Alcohol intake: former Comment: X-RAY NOT INDICATED Patient Tobacco Use Status: Current everyday Tobacco user Tobacco use type: Cigarette Cigarette Packs Per Day: 1 Cigarettes Per Day: 20.0 Years Smoked: 50 e-Cigarette/Vaping Use: Never Used Second Hand Smoke Exposure: No Substance Use Type: Marijuana service: No Review of Systems Const Denies chills and Denies fever(s) Card Denies dyspnea Resp Denies dyspnea GI Reports as per HPI Skin/Breast Reports as per HPI and Denies rash Physical Exam Vital Signs: Last Vital Signs Pulse 77 06/17/24 11:25 BP 115/60 06/17/24 11:25 Const General: comfortable, no acute distress and alert Orientation/consciousness: patient oriented x3 Resp Effort & Inspection: normal respiratory effort and able to speak in complete sentences GI Other: midline incision well healed with exception of small 0.5cm area of beefy red granulation tissue just inferior to umbilicus, wound probed with q tip and it extends superiorly around 3cm, no drainage noted, no surrounding erythema, wound packed with 1/4in plain packing and dry dressing applied old ostomy site well healed Inspection: No distended Palpation (GI): Soft to palpation, nontender and no guarding Skin General skin exam: no rashes or lesions noted Neuro General: patient oriented x3 and moves all extremities Assessment & Plan Assessment & Plan (1) Encounter for wound re-check: Code(s): Z51.89 - Encounter for other specified aftercare Category: Surgical Plan 63 year old male almost 1 month s/p exploratory laparotomy, enterolysis, colostomy reversal, trans anal colorectal anastomosis, flexible sigmoidoscopy, takedown splenic flexure on 05/23/24. Overall he is doing well post operatively. He did return to work and feels very run down. He was encouraged to take more time off if needed to allow his body to rest and recover. He will take the next week and possibly the following off. He is to continue no heavy lifting or strenuous activities. He has nonhealing area of his midline incision with chronic granulation tissue which was probed and packed with plain packing and covered with dry dressing. No evidence of wound infection or abscess. He is to change the packing every other day. He feels comfortable doing the dressing changes himself and denied VNA services. He is to follow up in 2 weeks for wound check. Coding Level of Care Code Global (03632) Diagnoses Encounter for wound re-check Z51.89
[2024-06-17 11:25] VITALS: BP 115/60; PULSE 77
--- OUTSIDE RECORDS SUMMARY | 2024-06-17 13:08 | XMS_ITS | Clinical Summary ---
Author Organization [facility] Address [address] [place], [place] Phone Care Team Providers Care Pancake Professional Name Role Phone Jo Sheehan MD Primary Care Provider [phone] Allergies No known active allergies Medications polyethylene glycol (GoLYTELY) 236-22.74-6.74 -5.86 gram solution Take 240 mL by mouth once for 1 dose. May substitue for any PEG. Follow instructions given by office. 01/17/20 Active nicotine (NICODERM CQ) 14 mg/[address] 1 patch on the skin 1 (one) time each day at the same time. 30 each 06/05/19 25 025 Active bisacodyL (DULCOLAX) 5 mg EC tablet Take 2 tablets by mouth right before your first dose of liquid prep. 01/17/20 23 025 Discontinued ibuprofen (ADVIL,MOTRIN) 800 mg tablet Take 1 tablet (800 mg total) by mouth every 6 (six) hours if needed for mild pain. 025 Discontinued Active Problems Problem Noted Date Diagnosed Date History of colostomy reversal 06/04/2024 Overview (06/04/2024): See note June 03, 2024 Assessment & Plan (06/04/2024 12:51 PM EDT): History of colon polyps 05/08/2024 Overview (05/08/2024): Hyperplastic, rpt in 10 years Assessment & Plan (06/04/2024 12:51 PM EDT): Patient has healthcare proxy 02/07/2024 Overview (02/07/2024): [...] with any questions and concerns. Hyperlipidemia 01/23/2022 Assessment & Plan (06/04/2024 12:51 PM EDT): Diverticulitis 01/17/2022 Assessment & Plan (06/04/2024 12:51 PM EDT): Assessment & Plan (03/10/2024 12:48 PM EST): [...] Encounters Date Type Department Care Team Description 06/04/2024 10:30 AM EDT Office Visit Adult Medicine [address] [phone] Jo Sheehan MD History of colostomy reversal (Primary Dx); Diverticulitis; Other hyperlipidemia; History of colon polyps; Smoker 05/28/2024 Telephone Adult Medicine [address] [phone] Leeanne Villegas RN hosp f/u 04/30/2024 Telephone Gastroenterology - [address] [place] [phone] Cordelia Cleary MA Results 04/29/2024 8:17 AM EDT Anesthesia Event [facility] [address] [place] [phone] Mallory Silva MD 04/29/2024 7:24 AM EDT - 04/29/2024 11:59 PM EDT Hospital Encounter [facility] [address] [place] [phone] Adrián Hill MD Decandio, Laura, CRNA Spencer, Mark A, MD Colon cancer screening Discharge Disposition: Home or Self Care 04/18/2024 Telephone Adult [address] [phone] Jo Sheehan MD Results (Echo ) 04/15/2024 7:00 AM EST Ancillary Procedure [facility] [address] [place] [phone] Cardiac murmur 04/08/2024 9:20 AM EST Office Visit Gastroenterology - [address] [phone] Felecia Casiano PA Colon cancer screening (Primary Dx) from Last 3 Months Surgical History Surgery Date Site/Laterality Comments COLOSTOMY Medical History Medical History Date Comments Diverticulitis DX:Diverticuliti s S/P colostomy ([facility] V24, [facility] V28) Alcohol use Hyperlipidemia Family History Medical [...] for your loved ones. For example, child and family services specialist or elderly care for an older adult? [...] Sign Reading Time Taken Comments Blood Pressure 102/56 06/04/2024 10:26 AM EDT Pulse 98 06/04/2024 10:26 AM EDT Temperature 36.3 ??C (97.4 ??F) 06/04/2024 10:26 AM E DT Respiratory Rate 20 06/04/2024 10:26 AM EDT Oxygen Saturation 96% 04/29/2024 9:03 AM EDT Inhaled Oxygen Concentration - - Weight 77.6 kg (171 lb) 06/04/2024 10:26 AM EDT Height 172.7 cm (5' 8 ) 06/04/2024 10:26 AM EDT Body Mass Index 26 06/04/2024 10:26 AM EDT Plan of Treatment Upcoming Encounters Date Type Department Care Team (Late st Contact Info) Description 2024 2:45 PM EDT Office Visit Adult Medicine [facility] [address] [place], [place] [phone] Jo Sheehan MD [address] [place], [place] Health Maintenance Due Date Last Done Comments [...] Results * FLEXIBLE SIGMOIDOSCOPY Anesthesia - MAC; [facility] (04/29/2024 8:42 AM EDT) Anatomical Region [...] office PRN. Narrative 04/29/2024 8:45 AM EDT [facility] Patient Name: George Caldwell Procedure Date: [...] Procedure Code(s): ? --- Professional --- ? 69352, Sigmoidoscopy, flexible; with removal of ? tumor(s), polyp(s), or other lesion(s) by snare ? technique Diagnosis Code(s): ? --- Professional --- ? K57.32, Diverticulitis of large intestine without ? perforation or abscess without bleeding ? D12.6, Benign neoplasm of colon, unspecified CPT copyright 2020 [employer]. All rights reserved. The codes documented in this report are preliminary and upon certified coder review may be revised to meet current compliance requirements. Adrián Hill MD 04/29/2024 8:44:44 AM This report has been signed electronically.Adrián Hill MD Number of Addenda: 0 Note Initiated On: 04/29/2024 8:31 AM Scope In: Scope Out: ? Endoscopy Department at [facility] - [address] [place] [address], ? [place] [phone] Procedure Note Adrián Hill MD - 04/29/2024 [facility] GI Patient Name: George Caldwell Procedure Date: [...] without abnormality. Procedure Code(s): --- Professional --- 23821, Sigmoidoscopy, flexible; with removal of tumor(s), polyp(s), or other lesion(s) by snare technique Diagnosis Code(s): --- Professional --- K57.32, Diverticulitis of large intestine without perforation or abscess without bleeding D12.6, Benign neoplasm of colon, unspecified CPT copyright 2020 [employer]. All rights reserved. The codes documented in this report are preliminary and upon certified coder reviewmay be revised to meet current compliance requirements. Adrián Hill MD 04/29/2024 8:44:44 AM This report has been signed electronically.Adrián Hill MD Number of Addenda: 0 Note Initiated On: 04/29/2024 8:31 AM Scope In: Scope Out: Endoscopy Department at [facility] - [address] [place] [phone] IMPRESSION: - Two 6 to 7 mm [...] ORDERABLES Final Result * [place]OSCOPY [place] [facility] [place] [facility] (04/29/2024 8:42 AM EDT) Anatomical Region Laterality Modality Other 04/29/2024 8:11 AM EDT Impressions 04/29/2024 8:41 AM EDT - Diverticulosis in the sigmoid colon. ? - The examination was otherwise normal. ? - No specimens collected. Recommendation: ?- Perform a flexible sigmoidoscopy today. Narrative 04/29/2024 8:41 AM EDT [facility] Patient Name: George Caldwell Procedure Date: [...] Procedure Code(s): ? --- Professional --- ? 35862, Colonoscopy through stoma; diagnostic, ? including collection of specimen(s) by brushing or ? washing, when performed (separate procedure) Diagnosis Code(s): ? --- Professional --- ? Z12.11, Encounter for screening for malignant neoplasm ? of colon ? K57.30, Diverticulosis of large intestine without ? perforation or abscess without bleeding CPT copyright 2020 [employer]. All rights reserved. The codes documented in this report are preliminary and upon certified coder review may be revised to meet current compliance requirements. Adrián Hill MD 04/29/2024 8:41:08 AM This report has been signed electronically.Adrián Hill MD Number of Addenda: 0 Note Initiated On: 04/29/2024 8:11 AM Scope In: Scope Out: ? Endoscopy Department at [facility] - [address] [place] [address], ? [place] [phone] Procedure Note Adrián Hill MD - 04/29/2024 [facility] Patient Name: George Caldwell Procedure Date: [...] without abnormality. Procedure Code(s): --- Professional --- 85329, Colonoscopy through stoma; diagnostic, including collection of specimen(s) by brushing or washing, when performed (separate procedure) Diagnosis Code(s): --- Professional --- Z12.11, Encounter for screening for malignantneoplasm of colon K57.30, Diverticulosis of large intestine without perforation or abscess without bleeding CPT copyright 2020 [employer]. All rights reserved. The codes documented in this report are preliminary and upon certified coder reviewmay be revised to meet current compliance requirements. Adrián Hill MD 04/29/2024 8:41:08 AM This report has been signed electronically.Adrián Hill MD Number of Addenda: 0 Note Initiated On: 04/29/2024 8:11 AM Scope In: Scope Out: Endoscopy Department at [facility] - [address] [place] [phone] IMPRESSION: - Diverticulosis in the sigmoid colon. - The examination was otherwise normal. - No specimens collected. Recommendation: - Perform a flexible sigmoidoscopy today. us Adrián Hill MD GI~PROCEDURE ORDERABLES Final Result * Tissue exam (04/29/2024 8:37 AM EDT) Final Diagnosis A. Colon, polyps x2 at 20cm: - Hyperplastic polyps x2. 04/30/2024 8:52 AM EDT [facility] Gross Description A. Colon, polyps x2 at 20cm: Labeled colon polyp x 2 . Received in formalin are two pink-red polypoid mucosal tissue fragments. The margins are inked black. The specimen is submitted in toto in one cassette, two pieces, multiple levels on one slide. DAVID 04/30/2024 8:52 AM EDT [facility] Disclaimer Unless otherwise specified, all tissue is 10% NB formalin fixed and paraffin embedded. 04/30/2024 8:52 AM EDT [facility] Tissue Colon structure / Unknown 04/29/2024 8:37 AM EDT 04/29/2024 9:48 AM EDT us Adrián Hill MD LAB PATHOLOGY ORDERABLES Vy thompson Result [facility] [address] [place] [address], [place] [phone] * TRANSTHORACIC ECHOCARDIOGRAM (TTE) COMPLETE (04/15/2024 7:29 AM EST) Left [facility] [place] 5.8 cm CV PACS Left [facility] [place] 5.5 cm CV PACS LA Area Sys [...] Volume 64 mL CV PACS MV Deceleration [place] 3.5 m/s2 CV PACS E Wave Deceleration [...] Final Result * Hepatitis C Screening (01/17/2022) Pathologist [facility] Hepatitis C Screening abstracted Historical Provider HEALTH [...] Most Recently Relevant to Health Maintenance Insurance [facility] Care Teams Pancake Professional Relationship Specialty Start Date End Date Jo Sheehan MD [address] [place] [address] PCP - General 06/06/1997
== END 2024-06-17 11:39 | disposition home or self-care (01) ==
LOC: HO.HGS 11:19
PROVIDERS: PCP Internal Medicine; Visit Provider Physician Assistant Surgical
DX: Z51.89 Encounter for other specified aftercare (principal)
CPT/HCPCS: 99024

== ENCOUNTER → 2024-06-18 10:33 | Outpatient (BNVA) | payer BC, SELFPAY | PROVIDERS: PCP Internal Medicine; Visit Provider Physician Assistant Surgical ==

== ENCOUNTER 2024-06-25 12:51 | Outpatient (AMB) | payer BC, SELFPAY ==
--- NOTE | 2024-06-25 12:55 | MHC.OFFVIS ---
Vital Signs 06/25/24 13:05 Weight 175 lb BP 139/73 Blood Pressure Location Rt brachial Position Sitting Pulse 88 Intake Visit Reasons: post op / dressing change with repacking Intake Note: Patient here for 2wk wound check. Reports mild oozing from top of incision on Mid abdomen. Automatic Riveting Machine Operator Required: No Accompanied by: Self / Same As Patient Allergies No Known Allergies Allergy (Verified 06/25/24 13:07) HPI HPI post op / dressing change with repacking: Details: Patient presents today for wound check. He underwent exploratory laparotomy, enterolysis, colostomy reversal, trans anal colorectal anastomosis, flexible sigmoidoscopy, takedown splenic flexure on 05/23/24 for hx of diverticular stricture requiring vicki procedure. Patient continues to have a small area centrally of his midline incision that continues to drain serous fluid, without evidence of infection, cellulitis. We have been managing with packing and daily dressing changes. He reports some improvement in the amount of drainage overall. He denies any abdominal pain, fever, chills. 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 [facility] Medical History Arthritis Heartburn Hyperlipidemia Diverticulitis Alcohol dependence Heart murmur Bowel obstruction Surgical History H/O colonoscopy Status post Vicki procedure (01/23/24) Social History Household Members: None Housing: Apartment Are you a primary respite care provider to a significant other at home: No Do you presently have visiting nurse or other home services: No Alcohol intake: former Comment: X-RAY NOT INDICATED Patient Tobacco Use Status: Current everyday Tobacco user Tobacco use type: Cigarette Cigarette Packs Per Day: 1 Cigarettes Per Day: 20.0 Years Smoked: 50 e-Cigarette/Vaping Use: Never Used Second Hand Smoke Exposure: No Substance Use Type: Marijuana service: No Review of Systems Const Denies chills and Denies fever(s) GI Denies abdominal pain Physical Exam Vital Signs: Last Vital Signs Pulse 88 06/25/24 13:05 BP 139/73 06/25/24 13:05 Const General: healthy appearing, comfortable and no acute distress Orientation/consciousness: patient oriented x3 Resp Effort & Inspection: normal respiratory effort and able to speak in complete sentences GI Other: The midline incision is well healed aside from a small 0.5 cm wound just inferior to the umbilicus. The area appears beefy red granulation tissue. The wound was probed with a Q-tip extends about 1.5 cm. Scant amounts of serous yellow clear fluid noted on the dressing Inspection: No distended Palpation (GI): Soft to palpation, nontender and not rigid Neuro General: patient oriented x3 Assessment & Plan Assessment & Plan (1) Encounter for wound re-check: Code(s): Z51.89 - Encounter for other specified aftercare Category: Surgical (2) Status post Vicki procedure: Onset Date: 01/23/24 Comment: 01/2024-Colostomy, Vicki's pouch - Dr. Townsend Code(s): Z93.3 - Colostomy status Category: Surgical (3) History of colostomy reversal: Code(s): Z98.890 - Other specified postprocedural states Category: Surgical Plan 63-year-old male 1 month s/p exploratory laparotomy enterolysis colostomy reversal transient or colorectal anastomosis flexible sigmoidoscopy takedown splenic flexure on 05/23/2024, presents to the office for wound check and dressing change. He is doing well overall. We have been managing with packing and daily dressing changes. The wound at the midline incision site just inferior to the umbilicus continues to drain small amounts of serous fluid, patient notes the amount of drainage continues to decrease. The previous dressing was removed and packing was removed as well. The wound was probed with a Q-tip showing about 1.5 cm of tracking superiorly small amounts of serous fluid noted on the Q-tip after removal. No evidence of fluid collection, surrounding erythema noted. No concern for current infection. The wound was repacked and dressed with gauze and tape. The patient will continue to change the dressing daily and will follow up in the office in 2 days for further evaluation and wound care. Patient can return sooner if he has any concerns Coding Level of Care Code Global (30049) Diagnoses Encounter for wound re-check Z51.89 Status post Vicki procedure Z93.3 History of colostomy reversal Z98.890 Time Spent (min) 28
[2024-06-25 13:05] VITALS: BP 139/73; PULSE 88
--- OUTSIDE RECORDS SUMMARY | 2024-06-25 13:10 | XMS_ITS | Encounter Summary ---
Author Organization [facility] Address [address] [place] [address] Care Team Providers Care Fingerer Name Role Phone Jo Sheehan MD Primary Care Provider [phone] Reason for Referral * Consultation (Urgent) - Closed Specialty Diagnoses / Procedures Referred By Contac t Referred To Contact General Surgery Diagnoses Encounter for other specified aftercare Jeremy Ramírez NP [address] [place], [place] Phone: tel: fax: Austin Townsend MD [address] [place] [phone] Phone: tel: Referral ID Status Reason Start Date Expiration Date V isits Requested Visits Authorized [id number] Closed Specialty Services Required 06/18/2024 06/18/2025 6 6 Reason for Visit * Reason Onset Date Comments Referral 06/19/2024 Encounter Details Date Type Department Care Team (Late st Contact Info) Description 06/19/2024 Telephone Adult Medicine [facility] [address], [place] [phone] Jo Sheehan MD [address], [place] Referral Social History Tobacco Use Types Packs/Day Years Used Date Smoking Tobacco: Every Day Cigarettes 0.5 40.4 Started: 1979; Last attempted to quit: 2017 [...] care for your loved ones. For example, children's tutor nursery or elderly care for an older adult? [...] as of this encounter Progress Notes * Jeremy Ramírez NP - 06/19/2024 10:[address] Sheehan is out of the office, Referral send * Felicia Tovar - 06/19/2024 1:43 PM EDT Pended order for referral to [facility] for W[facility] Care patient had appointment on 06/18/24. documented in this encounter Plan of Treatment Upcoming Encounters Date Type Department Care Team (Late st Contact Info) Description 2024 2:45 PM EDT Office Visit Adult Medicine [address] [phone] Jo Sheehan MD [address] [place] [phone] Scheduled Referrals Name Type Priority Associated Diagnoses Order Schedule Ambulatory referral to General Surgery Outpatient Referral Routine Encounter for other specified aftercare 1 Occurrences starting 06/19/2024 until 06/19/2025 documented as of this encounter Visit Diagnoses Diagnosis Encounter for other specified aftercare- Primary documented in this encounter Additional Health Concerns Assessment Noted Time PHQ-9 Depression Total Score: 0 05/31/19 25 12:04 PM EDT documented as of this encounter Care Teams Fingerer Relationship Specialty Start Date End Date Jo Sheehan MD [address] [place] [id number] PCP - General 06/06/1997 documented as of this encounter
--- OUTSIDE RECORDS SUMMARY | 2024-06-25 13:10 | XMS_ITS ---
Author Organization [facility] [address] [place] [address] Address [address] [place] [address] Phone Care Team Providers Care Gang Drill Operator Name Role Phone Jo Sheehan MD Primary Care Provider [phone] Transitional Care Management Status:Ongoing (Active) Start date:05/26/2024 Enrollment date:05/28/2024 Enrollment reason:Identified using hospital discharge data Case Team Name Relationship Phone Evon Lopez LPN Care Manager(Responsible Staf f) Continued Care and Services Coordination
--- OUTSIDE RECORDS SUMMARY | 2024-06-25 13:10 | XMS_ITS | Clinical Summary ---
Author Organization [facility] Address [address] [place], [place] Phone Care Team Providers Care Advanced Practice Nurse Psychotherapist Name Role Phone Jo Sheehan MD Primary Care Provider [phone] Allergies No known active allergies Medications polyethylene [...] Encounters Date Type Department Care Team Description 06/19/2024 Telephone Adult Medicine [address] [phone] Jo Sheehan MD Referral 06/04/2024 10:30 AM EDT Office Visit Adult [address] [phone] Jo Sheehan MD History of colostomy reversal (Primary Dx); Diverticulitis; Other hyperlipidemia; History of colon polyps; Smoker 05/28/2024 Telephone Adult [address] [phone] Leeanne Villegas RN hosp f/u 04/30/2024 Telephone Gastroenterology - [address] [phone] Cordelia Cleary [place] Results 04/29/2024 8:17 AM EDT Anesthesia Event [facility] Endoscopy [address] [place] [phone] Mallory Silva MD 04/29/2024 7:24 AM EDT - 04/29/2024 11:59 PM EDT Hospital Encounter [facility]oscopy [address] [place] [phone] Adrián Hill MD Decandio, Laura, CRNA Spencer, Mark A, MD Colon cancer screening Discharge Disposition: Home or Self Care 04/18/2024 Telephone Adult Medicine [address] [phone] Jo Sheehan MD Results (Echo ) 04/15/2024 7:00 AM EST Ancillary Procedure [facility] - [address] [place] [phone] Cardiac murmur 04/08/2024 9:20 AM EST Office Visit Gastroenterology - [address] [phone] Felecia Casiano PA Colon cancer screening (Primary Dx) from Last 3 Months Surgical History Surgery Date Site/Laterality Comments COLOSTOMY Medical History Medical History Date Comments Diverticulitis DX:Diverticuliti s S/P colostomy ([facility] V24, [facility] V28) Alcohol use Hyperlipidemia Family History Medical [...] for your loved ones. For example, child care attendant or elderly care for an older adult? [...] 2:45 PM EDT Office Visit Adult Medicine [facility] [address] [place] [address] Jo Sheehan MD [address] [place] [address] Health Maintenance Due Date Last Done Comments [...] Date/Time Associated Diagnosis Comments FLEXIBLE SIGMOIDOSCOPY Routine 5 8:42 AM EDT Colon cancer screening COLONOSCOPY [...] Results * FLEXIBLE SIGMOIDOSCOPY Anesthesia - MAC; [facility] ENDOSCOPY (04/29/2024 8:42 AM EDT) Anatomical [...] office PRN. Narrative 04/29/2024 8:45 AM EDT [facility] GI Patient Name: George Caldwell Procedure [...] Procedure Code(s): ? --- Professional --- ? 51398, Sigmoidoscopy, flexible; with removal of ? tumor(s), polyp(s), or other lesion(s) by snare ? technique Diagnosis Code(s): ? --- Professional --- ? K57.32, Diverticulitis of large intestine without ? perforation or abscess without bleeding ? D12.6, Benign neoplasm of colon, unspecified CPT copyright 2020 [employer]. All rights reserved. The codes documented in this report are preliminary and upon surgical coder review may be revised to meet current compliance requirements. Adrián Hill MD 04/29/2024 8:44:44 AM This report has been signed electronically.Adrián Hill MD Number of Addenda: 0 Note Initiated On: 04/29/2024 8:31 AM Scope In: Scope Out: ? Endoscopy Department at [facility] - [address] [place] [address], ? [place] [address] Procedure Note Adrián Hill MD - 04/29/2024 [facility] GI Patient Name: George Caldwell Procedure [...] without abnormality. Procedure Code(s): --- Professional --- 91439, Sigmoidoscopy, flexible; with removal of tumor(s), polyp(s), or other lesion(s) by snare technique Diagnosis Code(s): --- Professional --- K57.32, Diverticulitis of large intestine without perforation or abscess without bleeding D12.6, Benign neoplasm of colon, unspecified CPT copyright 2020 [employer]. All rights reserved. The codes documented in this report are preliminary and upon surgical coder reviewmay be revised to meet current compliance requirements. Adrián Hill MD 04/29/2024 8:44:44 AM This report has been signed electronically.Adrián Hill MD Number of Addenda: 0 Note Initiated On: 04/29/2024 8:31 AM Scope In: Scope Out: Endoscopy Department at [facility] - [address] [place] [phone] IMPRESSION: - Two 6 to 7 mm [...] ORDERABLES Final Result * COLONOSCOPY Anesthesia - [facility]; [facility] ENDOSCOPY (04/29/2024 8:42 AM EDT) Anatomical Region Laterality Modality Other 04/29/2024 8:11 AM EDT Impressions 04/29/2024 8:41 AM EDT - Diverticulosis in the sigmoid colon. ? - The examination was otherwise normal. ? - No specimens collected. Recommendation: ?- Perform a flexible sigmoidoscopy today. Narrative 04/29/2024 8:41 AM EDT [facility] GI Patient Name: George Caldwell Procedure [...] Procedure Code(s): ? --- Professional --- ? 66332, Colonoscopy through stoma; diagnostic, ? including collection of specimen(s) by brushing or ? washing, when performed (separate procedure) Diagnosis Code(s): ? --- Professional --- ? Z12.11, Encounter for screening for malignant neoplasm ? of colon ? K57.30, Diverticulosis of large intestine without ? perforation or abscess without bleeding CPT copyright 2020 [employer]. All rights reserved. The codes documented in this report are preliminary and upon surgical coder review may be revised to meet current compliance requirements. Adrián Hill MD 04/29/2024 8:41:08 AM This report has been signed electronically.Adrián Hill MD Number of Addenda: 0 Note Initiated On: 04/29/2024 8:11 AM Scope In: Scope Out: ? Endoscopy Department at [facility] - [address] [place] [address], ? [place] [address] Procedure Note Adrián Hill MD - 04/29/2024 [facility] GI Patient Name: George Caldwell Procedure [...] without abnormality. Procedure Code(s): --- Professional --- 31083, Colonoscopy through stoma; diagnostic, including collection of specimen(s) by brushing or washing, when performed (separate procedure) Diagnosis Code(s): --- Professional --- Z12.11, Encounter for screening for malignantneoplasm of colon K57.30, Diverticulosis of large intestine without perforation or abscess without bleeding CPT copyright 2020 [employer]. All rights reserved. The codes documented in this report are preliminary and upon surgical coder reviewmay be revised to meet current compliance requirements. Adrián Hill MD 04/29/2024 8:41:08 AM This report has been signed electronically.Adrián Hill MD Number of Addenda: 0 Note Initiated On: 04/29/2024 8:11 AM Scope In: Scope Out: Endoscopy Department at [facility] - [address] [place] [phone] IMPRESSION: - Diverticulosis in the sigmoid colon. - The examination was otherwise normal. - No specimens collected. Recommendation: - Perform a flexible sigmoidoscopy today. us Adrián Hill MD GI~PROCEDURE ORDERABLES Final Result * Tissue exam (04/29/2024 8:37 AM EDT) Final Diagnosis A. Colon, polyps x2 at 20cm: - Hyperplastic polyps x2. 04/30/2024 8:52 AM EDT [facility] Gross Description A. Colon, polyps x2 at 20cm: Labeled colon polyp x 2 . Received in formalin are two pink-red polypoid mucosal tissue fragments. The margins are inked black. The specimen is submitted in toto in one cassette, two pieces, multiple levels on one slide. DAVID 04/30/2024 8:52 AM EDT [facility] Disclaimer Unless otherwise specified, all tissue is 10% NB formalin fixed and paraffin embedded. 04/30/2024 8:52 AM EDT [facility] Tissue Colon structure / Unknown 04/29/2024 8:37 AM EDT 04/29/2024 9:48 AM EDT us Adrián Hill MD LAB PATHOLOGY ORDERABLES Vy thompson Result [facility]) [facility] [address] [place] [address], [place] [phone] * TRANSTHORACIC ECHOCARDIOGRAM (TTE) COMPLETE (04/15/2024 7:29 AM EST) Left Atrium Minor [place] 5.8 cm CV PACS Left Atrium Major [place] 5.5 cm CV PACS LA Area Sys [...] Volume 64 mL CV PACS MV Deceleration [place] 3.5 m/s2 CV PACS E Wave Deceleration [...] Most Recently Relevant to Health Maintenance Insurance [facility] Care Teams Advanced Practice Nurse Psychotherapist Relationship Specialty Start Date End Date Jo Sheehan MD [address] [place] [address] PCP - General 06/06/1997
== END 2024-06-25 13:10 | disposition home or self-care (01) ==
LOC: HO.HGS 12:52
PROVIDERS: PCP Internal Medicine
DX: Z51.89 Encounter for other specified aftercare (principal); Z93.3 Colostomy status; Z98.890 Other specified postprocedural states
CPT/HCPCS: 99024

== ENCOUNTER → 2024-06-25 12:51 | Outpatient (BNVA) | payer BC, SELFPAY | PROVIDERS: PCP Internal Medicine ==

== ENCOUNTER 2024-06-27 08:52 | Outpatient (AMB) | payer BC, SELFPAY ==
[2024-06-27 09:00] VITALS: BP 120/67; PULSE 81
--- NOTE | 2024-06-27 09:00 | MHC.OFFVIS ---
Vital Signs 06/27/24 09:00 Weight 176 lb BP 120/67 Blood Pressure Location Rt brachial Position Sitting Pulse 81 Intake Visit Reasons: dressing change Intake Note: S/p colostomy reversal on 05-23-24. Patient here to follow up from last office visit on 06-25-24 for abdominal wound check. Reports wound slowly healing. Patient c/o: noticed dime sized stain on gauze. No dressing placed this morning. Packing has been less saturated. Patient planning on returning to work on Sunday. 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 Does not have any pain with the site. 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 would like to resume some gentle golf like activities on the putting [facility] Medical History Arthritis Heartburn Hyperlipidemia Diverticulitis Alcohol dependence Heart murmur Bowel obstruction Surgical History H/O colonoscopy Status post Valorie procedure (01/23/24) Social History Household Members: None Housing: Apartment Are you a primary health care social worker to a significant other at home: No Do you presently have visiting nurse or other home services: No Alcohol intake: former Comment: X-RAY NOT INDICATED Patient Tobacco Use Status: Current everyday Tobacco user Tobacco use type: Cigarette Cigarette Packs Per Day: 1 Cigarettes Per Day: 20.0 Years Smoked: 50 e-Cigarette/Vaping Use: Never Used Second Hand Smoke Exposure: No Substance Use Type: Marijuana service: No Physical Exam Vital Signs: Last Vital Signs Pulse 81 06/27/24 09:00 BP 120/67 06/27/24 09:00 Const General: comfortable and no acute distress GI Other: Small open wound just inferior to the umbilicus along the midline incision. Scant serous fluid on Q-tip when probed. Wound is now tracking 1 cm. No surrounding erythema, purulent discharge, fluid collection Inspection: No distended Palpation (GI): Soft to palpation and nontender Assessment & Plan Assessment & Plan (1) Encounter for wound re-check: Code(s): Z51.89 - Encounter for other specified aftercare Category: Surgical Plan 63-year-old male 1 month s/p exploratory laparotomy enterolysis, colostomy reversal transient or colorectal anastomosis flexible sigmoidoscopy takedown splenic flexure on 05/23/2024 presents to the office for wound check and dressing change. Patient is doing well states he remove the dressing this morning and had a very small amount of discharge left on the dressing. The wound is probed using a Q-tip showing scant amounts of serous fluid. No surrounding erythema or obvious fluid collection, no concern for infection. Noted improvement in the tracking of the wound now improved to about 1 cm. The wound was repacked with quarter-inch packing and dressed with gauze and tape. Redressed patient's questions about returning to ambulation, he feels with deconditioned would like to start exercising again. Patient is okay to resume ambulation as tolerated we discussed starting light and slow and listening to his body. We also discussed returning to golf I recommended that he can begin to start with some golf like activity such as chipping and putting, so he can avoid full abdominal strain and rotation throughout the movement while he increase his ambulation towards baseline. Patient will return next Sunday for follow-up, he can return as needed with any concerns Coding Level of Care Code Est Pt Level 2 (79273) Diagnoses Encounter for wound re-check Z51.89
--- OUTSIDE RECORDS SUMMARY | 2024-06-27 09:05 | XMS_ITS ---
Author Organization [facility] [address] [place] [address] Address [address] [place] [address] Phone Care Team Providers Care Associate Professor Of Mathematics Name Role Phone Jo Sheehan MD Primary Care Provider [phone] Transitional Care Management Status:Closed (Closed) Start date:05/26/2024 Enrollment date:05/26/2024 Enrollment reason:Identified using hospital discharge data End date:06/26/2024 Close reason:Completed program Continued Care and Services Coordination
--- OUTSIDE RECORDS SUMMARY | 2024-06-27 09:06 | XMS_ITS | Encounter Summary ---
Author Organization [facility] Address [address] [place] [address] Care Team Providers Care Furnace Maintenance Name Role Phone Jo Sheehan MD Primary Care Provider [phone] Reason for Referral * Consultation (Urgent) - Closed Specialty Diagnoses / Procedures Referred By Contac t Referred To Contact General Surgery Diagnoses Encounter for other specified aftercare Jeremy Ramírez NP [address] [place], [place] Phone: tel: fax: [place] Townsend MD [address] [place] [phone] Phone: tel: Referral ID Status Reason Start Date Expiration Date V isits Requested Visits Authorized [id number] Closed Specialty Services Required 06/18/2024 06/18/2025 6 6 Reason for Visit * Reason Onset Date Comments Referral 06/19/2024 Encounter Details Date Type Department Care Team (Late st Contact Info) Description 06/19/2024 Telephone Adult Medicine [facility] [address] [place] [phone] Jo Sheehan MD [address] [place], [place] Referral Social History Tobacco Use Types [...] ones. For example, child and family services worker or elderly care for an older adult? [...] PM EDT Pended order for referral to [facility] for Wound Care patient had appointment on 06/18/24. documented in this encounter Plan of Treatment Upcoming Encounters Date Type Department Care Team (Late st Contact Info) Description 2024 2:45 PM EDT Office Visit Adult Medicine [address] [phone] Jo Sheehan MD [address] [place] [phone] Scheduled Referrals Name Type Priority Associated Diagnoses [...] documented as of this encounter Care Teams Furnace Maintenance Relationship Specialty Start Date End Date Jo Sheehan MD [address] [place] [address] PCP - General 06/06/1997 documented as of this encounter
--- OUTSIDE RECORDS SUMMARY | 2024-06-27 09:06 | XMS_ITS | Clinical Summary ---
Author Organization [facility] [address] [facility] Address [address] [place], [place] Phone Care Team Providers Care Sat Instructor Name Role Phone Jo Sheehan MD Primary Care Provider [phone] Allergies No known active allergies Medications polyethylene [...] Care Team Description 06/19/2024 Telephone Adult Medicine [address] [phone] Jo Sheehan MD Referral 06/04/2024 10:30 AM EDT Office Visit Adult [address] [phone] Jo Sheehan MD History of colostomy reversal (Primary Dx); Diverticulitis; Other hyperlipidemia; History of colon polyps; Smoker 05/28/2024 Telephone Adult [address] [phone] Leeanne Villegas RN hosp f/u 04/30/2024 Telephone Gastroenterology - [address] [phone] Cordelia Cleary [place] Results 04/29/2024 8:17 AM EDT Anesthesia Event [facility] Endoscopy [address] [place] [phone] Mallory Silva MD 04/29/2024 7:24 AM EDT - 04/29/2024 11:59 PM EDT Hospital Encounter [facility] Endoscopy [address] [place] [phone] Adrián Hill MD Decandio, Laura, CRNA Spencer, Mark A, MD Colon cancer screening Discharge Disposition: Home or Self Care 04/18/2024 Telephone Adult Medicine [address] [phone] Jo Sheehan MD Results (Echo ) 04/15/2024 7:00 AM EST Ancillary Procedure [facility] [address] [place] [phone] Cardiac murmur 04/08/2024 9:20 AM EST Office Visit Gastroenterology - 299 [address] [phone] Felecia Casiano PA Colon cancer screening (Primary Dx) from Last 3 Months Surgical History Surgery Date Site/Laterality Comments COLOSTOMY Medical History Medical History Date Comments Diverticulitis DX:Diverticuliti s S/P colostomy ([facility] V24, [facility] V28) Alcohol use Hyperlipidemia Family History Medical [...] for your loved ones. For example, children's nursery assistant or elderly care for an older [...] 2:45 PM EDT Office Visit Adult Medicine [facility] [address] [place] [phone] Jo Sheehan MD [address] [place] [address] Health Maintenance Due Date Last Done Comments [...] Results * FLEXIBLE SIGMOIDOSCOPY Anesthesia - MAC; [facility] ENDOSCOPY (04/29/2024 8:42 AM EDT) [...] office PRN. Narrative 04/29/2024 8:45 AM EDT [facility] GI Patient Name: George Caldwell Procedure [...] Procedure Code(s): ? --- Professional --- ? 39832, Sigmoidoscopy, flexible; with removal of ? tumor(s), polyp(s), or other lesion(s) by snare ? technique Diagnosis Code(s): ? --- Professional --- ? K57.32, Diverticulitis of large intestine without ? perforation or abscess without bleeding ? D12.6, Benign neoplasm of colon, unspecified CPT copyright 2020 [employer] [place] [employer]. All rights reserved. The codes documented in this report are preliminary and upon icd 9 coder review may be revised to meet current compliance requirements. Adrián Hill MD 04/29/2024 8:44:44 AM This report has been signed electronically.Adrián Hill MD Number of Addenda: 0 Note Initiated On: 04/29/2024 8:31 AM Scope In: Scope Out: ? Endoscopy Department at [facility] - [address] [place] [address], ? [place] [address] Procedure Note Adrián Hill MD - 04/29/2024 [facility] Patient Name: George Caldwell Procedure [...] without abnormality. Procedure Code(s): --- Professional --- 33080, Sigmoidoscopy, flexible; with removal of tumor(s), polyp(s), or other lesion(s) by snare technique Diagnosis Code(s): --- Professional --- K57.32, Diverticulitis of large intestine without perforation or abscess without bleeding D12.6, Benign neoplasm of colon, unspecified CPT copyright 2020 [employer] [place] [employer]. All rights reserved. The codes documented in this report are preliminary and upon icd 9 coder reviewmay be revised to meet current compliance requirements. Adrián Hill MD 04/29/2024 8:44:44 AM This report has been signed electronically.Adrián Hill MD Number of Addenda: 0 Note Initiated On: 04/29/2024 8:31 AM Scope In: Scope Out: Endoscopy Department at [facility] - [address] [place] [phone] IMPRESSION: - Two 6 to 7 mm [...] ORDERABLES Final Result * COLONOSCOPY Anesthesia - [facility]; [facility] ENDOSCOPY (04/29/2024 8:42 AM EDT) Anatomical Region Laterality Modality Other 04/29/2024 8:11 AM EDT Impressions 04/29/2024 8:41 AM EDT - Diverticulosis in the sigmoid colon. ? - The examination was otherwise normal. ? - No specimens collected. Recommendation: ?- Perform a flexible sigmoidoscopy today. Narrative 04/29/2024 8:41 AM EDT [facility] Patient Name: George Caldwell Procedure [...] Procedure Code(s): ? --- Professional --- ? 76680, Colonoscopy through stoma; diagnostic, ? including collection of specimen(s) by brushing or ? washing, when performed (separate procedure) Diagnosis Code(s): ? --- Professional --- ? Z12.11, Encounter for screening for malignant neoplasm ? of colon ? K57.30, Diverticulosis of large intestine without ? perforation or abscess without bleeding CPT copyright 2020 [employer] [place] [employer]. All rights reserved. The codes documented in this report are preliminary and upon icd 9 coder review may be revised to meet current compliance requirements. Adrián Hill MD 04/29/2024 8:41:08 AM This report has been signed electronically.Adrián Hill MD Number of Addenda: 0 Note Initiated On: 04/29/2024 8:11 AM Scope In: Scope Out: ? Endoscopy Department at [facility] - [address] [place] [address], ? [place] [address] Procedure Note Adrián Hill MD - 04/29/2024 [facility] GI Patient Name: George Caldwell Procedure [...] without abnormality. Procedure Code(s): --- Professional --- 07715, Colonoscopy through stoma; diagnostic, including collection of specimen(s) by brushing or washing, when performed (separate procedure) Diagnosis Code(s): --- Professional --- Z12.11, Encounter for screening for malignantneoplasm of colon K57.30, Diverticulosis of large intestine without perforation or abscess without bleeding CPT copyright 2020 [employer] [place] [employer] [place]. All rights reserved. The codes documented in this report are preliminary and upon icd 9 coder reviewmay be revised to meet current compliance requirements. Adrián Hill MD 04/29/2024 8:41:08 AM This report has been signed electronically.Adrián Hlil MD Number of Addenda: 0 Note Initiated On: 04/29/2024 8:11 AM Scope In: Scope Out: Endoscopy Department at [facility] - [address] [place] [phone] IMPRESSION: - Diverticulosis in the sigmoid colon. - The examination was otherwise normal. - No specimens collected. Recommendation: - Perform a flexible sigmoidoscopy today. us Adrián Hill MD GI~PROCEDURE ORDERABLES Final Result * Tissue exam (04/29/2024 8:37 AM EDT) Final Diagnosis A. Colon, polyps x2 at 20cm: - Hyperplastic polyps x2. 04/30/2024 8:52 AM EDT [facility] Gross Description A. Colon, polyps x2 at 20cm: Labeled colon polyp x 2 . Received in formalin are two pink-red polypoid mucosal tissue fragments. The margins are inked black. The specimen is submitted in toto in one cassette, two pieces, multiple levels on one slide. DAVID 04/30/2024 8:52 AM EDT [facility] Disclaimer Unless otherwise specified, all tissue is 10% NB formalin fixed and paraffin embedded. 04/30/2024 8:52 AM EDT [facility] Tissue Colon structure / Unknown 04/29/2024 8:37 AM EDT 04/29/2024 9:48 AM EDT us Adrián Hill MD LAB PATHOLOGY ORDERABLES Vy thompson Result [facility] [address] [place] [address], [place] [phone] * TRANSTHORACIC ECHOCARDIOGRAM (TTE) COMPLETE (04/15/2024 7:29 AM EST) Left Atrium Minor [place] 5.8 cm CV PACS Left Atrium Major [place] 5.5 cm CV PACS LA Area Sys [...] Volume 64 mL CV PACS MV Deceleration [place] 3.5 m/s2 CV PACS E Wave Deceleration [...] Most Recently Relevant to Health Maintenance Insurance [facility] Care Teams Sat Instructor Relationship Specialty Start Date End Date Jo Sheehan MD [address] [place] [address] PCP - General 06/06/1997
== END 2024-06-27 09:15 | disposition home or self-care (01) ==
PROVIDERS: PCP Internal Medicine
DX: Z51.89 Encounter for other specified aftercare (principal)
CPT/HCPCS: 99024

== ENCOUNTER → 2024-06-27 08:52 | Outpatient (BNVA) | payer BC, SELFPAY | PROVIDERS: PCP Internal Medicine ==

== ENCOUNTER 2024-07-01 10:51 | Outpatient (AMB) | payer BC, SELFPAY ==
--- NOTE | 2024-07-01 10:53 | MHC.OFFVIS ---
Vital Signs 07/01/24 11:02 Height 5 ft 8 in Weight 178 lb 6 oz BMI 27.1 BP 127/70 Blood Pressure Location Lt brachial Position Sitting Pulse 76 Intake Visit Reasons: mid abd wound check/ packing Intake Note: Patient is seen in office for wound check post colostomy reversal. 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 States he has decreased the amount of times he has needed to change the dressing. States he has not had packing since the weekend when he removed the dressing. He removed his most recent dressing this morning at 8 and has had a very small amount of discharge since. He denies pain, fever, chills. He does endorse some generalized abdominal tightness. He reports he did not return to work as we added originally planned for due to some continued discharge after his last visit. He wanted to take things slow going forward as he returns towards baseline activity level. Plans to return to work in 2 weeks. He has no further concerns [facility] Medical History Arthritis Heartburn Hyperlipidemia Diverticulitis Alcohol dependence Heart murmur Bowel obstruction Surgical History H/O colonoscopy Status post Valorie procedure (01/23/24) Social History Household Members: None Housing: Apartment Are you a primary auto care center manager to a significant other at home: No Do you presently have visiting nurse or other home services: No Alcohol intake: former Comment: X-RAY NOT INDICATED Patient Tobacco Use Status: Current everyday Tobacco user Tobacco use type: Cigarette Cigarette Packs Per Day: 1 Cigarettes Per Day: 20.0 Years Smoked: 50 e-Cigarette/Vaping Use: Never Used Second Hand Smoke Exposure: No Substance Use Type: Marijuana service: No Review of Systems Const All systems reviewed & are unremarkable except as noted in HPI and below Physical Exam Vital Signs: Last Vital Signs Pulse 76 07/01/24 11:02 BP 127/70 07/01/24 11:02 BMI result Body Mass Index 27.1 Const General: comfortable and no acute distress Orientation/consciousness: patient oriented x3 Resp Effort & Inspection: normal respiratory effort and able to speak in complete sentences GI Other: Midline incision wound observed, scant serous fluid evident on the patient's clothing. There was no longer an opening. No evidence of fluid collection. No surrounding erythema, fluctuance. Nontender to palpation. Additional incision sites also healing well no concern for infection Neuro General: patient oriented x3 Assessment & Plan Assessment & Plan (1) Encounter for wound re-check: Code(s): Z51.89 - Encounter for other specified aftercare Category: Surgical (2) History of colostomy reversal: Code(s): Z98.890 - Other specified postprocedural states Category: Medical Plan 63-year-old male status post exploratory laparotomy enterolysis, colostomy reversal transient or colorectal anastomosis flexible sigmoidoscopy takedown splenic flexure on 05/23/2024 presenting to the office for follow-up wound check and dressing change. Patient is doing well continuing to improve. Requiring less frequent dressing changes with decreased serous discharge. The wound was evaluated in the office, which now looks to be completely closed with very scant amounts of serous discharge noted. There was no concern for current infection, and no evidence of fluid collection. The wound was dressed with a Band-Aid, patient can changes as needed. He did not feel ready for work yet due to the continued drainage, which I agree with. Patient can increase activity as tolerated without restrictions. He plans to return to work after the hol and plans to slowly increase his work load. He will follow-up in 2 weeks in the office. He can return sooner with any concerns or questions. Coding Level of Care Code Global (70773) Diagnoses Encounter for wound re-check Z51.89 History of colostomy reversal Z98.890 Time Spent (min) 30
[2024-07-01 11:02] VITALS: BP 127/70; PULSE 76; BMI 27.1
--- OUTSIDE RECORDS SUMMARY | 2024-07-01 12:06 | XMS_ITS | Encounter Summary ---
Author Organization [facility] Address [address] [place] [address] Care Team Providers Care Knitting Demonstrator Name Role Phone Jo Sheehan MD Primary Care Provider [phone] Reason for Referral * Consultation (Urgent) - Closed Specialty Diagnoses / Procedures Referred By Contac t Referred To Contact General Surgery Diagnoses Encounter for other specified aftercare Jeremy Ramírez NP [address] [place], [place] Phone: tel: fax: Austin Townsend MD [address] [place] [phone] Phone: tel: Referral ID Status Reason Start Date Expiration Date V isits Requested Visits Authorized [id number] Closed Specialty Services Required 06/18/2024 06/18/2025 6 6 Reason for Visit * Reason Onset Date Comments Referral 06/19/2024 Encounter Details Date Type Department Care Team (Late st Contact Info) Description 06/19/2024 Telephone Adult Medicine [facility] [address], [place] [phone] Jo Sheehan MD [address] [place], [place] Referral Social History Tobacco Use Types [...] your loved ones. For example, child and youth program assistant or elderly care for an older [...] PM EDT Pended order for referral to [facility] Surgeons for Wound Care patient had appointment on 06/18/24. documented in this encounter Plan of Treatment Upcoming Encounters Date Type Department Care Team (Late st Contact Info) Description 2024 2:45 PM EDT Office Visit Adult Medicine [address] [phone] Jo Sheehan MD [address] [place] [phone] Scheduled Referrals Name Type Priority Associated Diagnoses [...] documented as of this encounter Care Teams Knitting Demonstrator Relationship Specialty Start Date End Date Jo Sheehan MD [address] [place] [address] PCP - General 06/06/1997 documented as of this encounter
--- OUTSIDE RECORDS SUMMARY | 2024-07-01 12:06 | XMS_ITS | Clinical Summary ---
Author Organization [facility] [address] [facility] Address [address] [place], [place] Phone Care Team Providers Care Compliance Aide Name Role Phone Jo Sheehan MD Primary Care Provider [phone] Allergies No known active allergies Medications polyethylene [...] Care Team Description 06/19/2024 Telephone Adult Medicine [address] [phone] Jo Sheehan MD Referral 06/04/2024 10:30 AM EDT Office Visit Adult [address] [phone] Jo Sheehan MD History of colostomy reversal (Primary Dx); Diverticulitis; Other hyperlipidemia; History of colon polyps; Smoker 05/28/2024 Telephone Adult [address] [phone] Leeanne Villegas RN hosp f/u 04/30/2024 Telephone Gastroenterology - [address] [phone] Cordelia Cleary MA Results 04/29/2024 8:17 AM EDT Anesthesia Event [facility] [address] [place] [phone] Mallory Silva MD 04/29/2024 7:24 AM EDT - 04/29/2024 11:59 PM EDT Hospital Encounter [facility] [address] [place] [phone] Adrián Hill MD Decandio, Laura, CRNA Spencer, Mark A, MD Colon cancer screening Discharge Disposition: Home or Self Care 04/18/2024 Telephone Adult Medicine [address] [phone] Jo Sheehan MD Results (Echo ) 04/15/2024 7:00 AM EST Ancillary Procedure [facility] - [address] [place] [phone] Cardiac murmur 04/08/2024 9:20 AM EST Office Visit Gastroenterology - [address] [phone] Felecia Casiano PA Colon cancer screening (Primary Dx) from Last 3 Months Surgical History Surgery Date Site/Laterality Comments COLOSTOMY Medical History Medical History Date Comments Diverticulitis DX:Diverticuliti s S/P colostomy ([facility] V24, [facility] V28) Alcohol use Hyperlipidemia Family History Medical [...] Adult Medicine [facility] [address] [place] [address] Jo Sheehan MD [address] [place] [address] Health Maintenance Due Date Last Done Comments [...] Results * FLEXIBLE SIGMOIDOSCOPY Anesthesia - MAC; [facility] (04/29/2024 8:42 AM EDT) Anatomical [...] office PRN. Narrative 04/29/2024 8:45 AM EDT [facility] Patient Name: George Caldwell Procedure [...] Procedure Code(s): ? --- Professional --- ? 03891, Sigmoidoscopy, flexible; with removal of ? tumor(s), polyp(s), or other lesion(s) by snare ? technique Diagnosis Code(s): ? --- Professional --- ? K57.32, Diverticulitis of large intestine without ? perforation or abscess without bleeding ? D12.6, Benign neoplasm of colon, unspecified CPT copyright 2020 [employer] [employer]. All rights reserved. The codes documented in this report are preliminary and upon vehicle assembly inspector review may be revised to meet current compliance requirements. Adrián Hill MD 04/29/2024 8:44:44 AM This report has been signed electronically.Adrián Hill MD Number of Addenda: 0 Note Initiated On: 04/29/2024 8:31 AM Scope In: Scope Out: ? Endoscopy Department at [facility] - [address] [place] [address], ? [place] [address] Procedure Note Adrián Hill MD - 04/29/2024 [facility] Patient Name: George Caldwell Procedure [...] without abnormality. Procedure Code(s): --- Professional --- 11401, Sigmoidoscopy, flexible; with removal of tumor(s), polyp(s), or other lesion(s) by snare technique Diagnosis Code(s): --- Professional --- K57.32, Diverticulitis of large intestine without perforation or abscess without bleeding D12.6, Benign neoplasm of colon, unspecified CPT copyright 2020 [employer] [employer]. All rights reserved. The codes documented in this report are preliminary and upon vehicle assembly inspector reviewmay be revised to meet current compliance requirements. Adrián Hill MD 04/29/2024 8:44:44 AM This report has been signed electronically.Adrián Hill MD Number of Addenda: 0 Note Initiated On: 04/29/2024 8:31 AM Scope In: Scope Out: Endoscopy Department at [facility] - [address] [place] [phone] IMPRESSION: - Two 6 to 7 mm [...] ORDERABLES Final Result * COLONOSCOPY Anesthesia - [facility]; [facility] (04/29/2024 8:42 AM EDT) Anatomical Region Laterality Modality Other 04/29/2024 8:11 AM EDT Impressions 04/29/2024 8:41 AM EDT - Diverticulosis in the sigmoid colon. ? - The examination was otherwise normal. ? - No specimens collected. Recommendation: ?- Perform a flexible sigmoidoscopy today. Narrative 04/29/2024 8:41 AM EDT [facility] Patient Name: George Caldwell Procedure [...] Procedure Code(s): ? --- Professional --- ? 36702, Colonoscopy through stoma; diagnostic, ? including collection of specimen(s) by brushing or ? washing, when performed (separate procedure) Diagnosis Code(s): ? --- Professional --- ? Z12.11, Encounter for screening for malignant neoplasm ? of colon ? K57.30, Diverticulosis of large intestine without ? perforation or abscess without bleeding CPT copyright 2020 [employer]. All rights reserved. The codes documented in this report are preliminary and upon vehicle assembly inspector review may be revised to meet current compliance requirements. Adrián Hill MD 04/29/2024 8:41:08 AM This report has been signed electronically.Adrián Hill MD Number of Addenda: 0 Note Initiated On: 04/29/2024 8:11 AM Scope In: Scope Out: ? Endoscopy Department at [facility] - [address] [place] [address], ? [place] [address] Procedure Note Adrián Hill MD - 04/29/2024 [facility] Patient Name: George Caldwell Procedure [...] without abnormality. Procedure Code(s): --- Professional --- 64531, Colonoscopy through stoma; diagnostic, including collection of specimen(s) by brushing or washing, when performed (separate procedure) Diagnosis Code(s): --- Professional --- Z12.11, Encounter for screening for malignantneoplasm of colon K57.30, Diverticulosis of large intestine without perforation or abscess without bleeding CPT copyright 2020 [employer] [employer]. All rights reserved. The codes documented in this report are preliminary and upon vehicle assembly inspector reviewmay be revised to meet current compliance requirements. Adrián Hill MD 04/29/2024 8:41:08 AM This report has been signed electronically.Adrián Hill MD Number of Addenda: 0 Note Initiated On: 04/29/2024 8:11 AM Scope In: Scope Out: Endoscopy Department at [facility] - [address] [place] [phone] IMPRESSION: - Diverticulosis in the sigmoid colon. - The examination was otherwise normal. - No specimens collected. Recommendation: - Perform a flexible sigmoidoscopy today. us Adrián Hill MD GI~PROCEDURE ORDERABLES Final Result * Tissue exam (04/29/2024 8:37 AM EDT) Final Diagnosis A. Colon, polyps x2 at 20cm: - Hyperplastic polyps x2. 04/30/2024 8:52 AM EDT [facility] Gross Description A. Colon, polyps x2 at 20cm: Labeled colon polyp x 2 . Received in formalin are two pink-red polypoid mucosal tissue fragments. The margins are inked black. The specimen is submitted in toto in one cassette, two pieces, multiple levels on one slide. DAVID 04/30/2024 8:52 AM EDT [facility] Disclaimer Unless otherwise specified, all tissue is 10% NB formalin fixed and paraffin embedded. 04/30/2024 8:52 AM EDT [facility] Tissue Colon structure / Unknown 04/29/2024 8:37 AM EDT 04/29/2024 9:48 AM EDT us Adrián Hill MD LAB PATHOLOGY ORDERABLES Vy thompson Result [facility]) [facility] [address] [place] [address], [place] [phone] * TRANSTHORACIC ECHOCARDIOGRAM (TTE) COMPLETE (04/15/2024 7:29 AM EST) Left Atrium Minor Calder 5.8 cm CV PACS Left Atrium Major Calder 5.5 cm CV PACS LA Area Sys [...] Volume 64 mL CV PACS MV Deceleration [place] 3.5 m/s2 CV PACS E Wave Deceleration [...] Most Recently Relevant to Health Maintenance Insurance [facility] Care Teams Compliance Aide Relationship Specialty Start Date End Date Jo Sheehan MD [address] [place] [address] PCP - General 06/06/1997
--- OUTSIDE RECORDS SUMMARY | 2024-07-01 12:06 | XMS_ITS ---
Author Organization [facility] [address] [place] [address] Address [address] [place] [address] Phone Care Team Providers Care A/C Technician Name Role Phone Jo Sheehan MD Primary Care Provider [phone] Transitional Care Management Status:Closed (Closed) Start date:05/26/2024 Enrollment date:05/26/2024 Enrollment reason:Identified using hospital discharge data End date:06/26/2024 Close reason:Completed program Continued Care and Services Coordination
== END 2024-07-01 11:10 | disposition home or self-care (01) ==
LOC: HO.HGS 10:52
PROVIDERS: PCP Internal Medicine
DX: Z51.89 Encounter for other specified aftercare (principal); Z98.890 Other specified postprocedural states
CPT/HCPCS: 99024

== ENCOUNTER 2024-07-15 09:32 | Outpatient (AMB) | payer BC, SELFPAY ==
--- NOTE | 2024-07-15 09:47 | A.OFFVIS_ITS ---
Vital Signs 07/15/24 09:48 Height 5 ft 8 in Weight 182 lb BMI 27.7 BP 126/78 Blood Pressure Location Rt brachial Position Sitting Pulse 86 Intake Visit Reasons: 2WK FUV mid abd wound check/ packing Intake Note: Patient here for 2wk follow up mid abdomen wound. Reports site healing well. Patient c/o: no concerns. Went back to work yesterday. Feels good. Stopped smoking May 23, 2024. 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 Caldwell presents for a wound check. He had small nonhealing area of the sup erior aspect of his midline incision following exploratory laparotomy, colostomy reversal, trans anal colorectal anastomosis on 05/23/24. This area was probed and packed and has been gradually healing via secondary intention over the past few weeks. Her reports the area is closed and denies further drainage. He is eating ok, moving his bowels without difficulty. He has resumed work and is tired at the end of the day but overall no concerns. [facility] Medical History Arthritis Heartburn Hyperlipidemia Diverticulitis Alcohol dependence Heart murmur Bowel obstruction Surgical History H/O colonoscopy Status post Valorie procedure (01/23/24) Social History Household Members: None Housing: Apartment Are you a primary career discovery teacher to a significant other at home: No Do you presently have visiting nurse or other home services: No Alcohol intake: former Comment: X-RAY NOT INDICATED Patient Tobacco Use Status: Current everyday Tobacco user Tobacco use type: Cigarette Cigarette Packs Per Day: 1 Cigarettes Per Day: 20.0 Years Smoked: 50 e-Cigarette/Vaping Use: Never Used Second Hand Smoke Exposure: No Substance Use Type: Marijuana service: No Review of Systems Const All systems reviewed & are unremarkable except as noted in HPI and below GI Denies diarrhea, Denies nausea and Denies vomiting Skin/Breast Denies rash Physical Exam Vital Signs: Last Vital Signs Pulse 86 06/03/25 09:48 BP 126/78 07/15/24 09:48 BMI result Body Mass Index 27.7 Const General: comfortable, no acute distress and alert Orientation/consciousness: patient oriented x3 GI Other: protuberant abdomen old colostomy incision well healed midline incision well healed without further wound openings, 3mm scab remains where prior wound opening was, no drainage, no erythema Palpation (GI): Soft to palpation, nontender and no hernias Skin General skin exam: no rashes or lesions noted Neuro General: patient oriented x3 and moves all extremities Assessment & Plan Assessment & Plan (1) Encounter for wound re-check: Code(s): Z51.89 - Encounter for other specified aftercare Category: Surgical (2) History of colostomy reversal: Code(s): Z98.890 - Other specified postprocedural states Category: Surgical Plan 63 year old male 7 weeks s/p exploratory laparotomy, colostomy reversal, trans anal colorectal anastomosis. His incisions are now well healed with no further drainage noted, remainder of abdomen remains soft and benign. He is clinically appearing well. He is to continue no heavy lifting or strenuous activities until 8 weeks (next week) and then was instructed to gradually increase his activities as tolerated. He is doing well and can follow up as needed. Coding Level of Care Code Global (42590) Diagnoses Encounter for wound re-check Z51.89 History of colostomy reversal Z98.890
[2024-07-15 09:48] VITALS: BP 126/78; PULSE 86; BMI 27.7
--- OUTSIDE RECORDS SUMMARY | 2024-07-15 10:37 | XMS_ITS | Clinical Summary ---
Author Organization [facility] [address] [facility] Address [address] [place] [address] Phone Care Team Providers Care Chemical Plant Operator Supervisor Name Role Phone Jo Sheehan MD Primary Care Provider [phone] Allergies No known active allergies Medications polyethylene glycol (GoLYTELY) 236-22.74-6.74 -5.86 gram solution Take 240 mL by mouth once for 1 dose. May substitue for any PEG. Follow instructions given by office. 3 Active nicotine (NICODERM CQ) 14 mg/[address] 1 patch on the skin 1 (one) time each day at the same time. 30 each 5 Active Active Problems Problem Noted Date Diagnosed Date History of colostomy reversal 06/04/2024 Overview (06/04/2024): See note June 03, 2024 Assessment & Plan (06/04/2024 12:51 PM EDT): History of colon polyps 05/08/2024 Overview (05/08/2024): Hyperplastic, rpt in 10 years Assessment & Plan (06/04/2024 12:51 PM EDT): Patient has healthcare proxy 02/07/2024 Overview (02/07/2024): DaughterChantale Assessment & Plan (02/07/2024 8:48 AM EST): [...] Care Team Description 06/19/2024 Telephone Adult Medicine [address] [phone] Jo Sheehan MD Referral 06/04/2024 10:30 AM EDT Office Visit Adult Medicine [facility] [address] [place], [place] [phone] Jo Sheehan MD History of colostomy reversal (Primary Dx); Diverticulitis; Other hyperlipidemia; History of colon polyps; Smoker 05/28/2024 Telephone Adult Medicine [address] [phone] Leeanne Villegas RN hosp f/u 04/30/2024 Telephone Gastroenterology - [address] [facility] [address] [facility] [address] [place] [phone] Cordelia Cleary [place] Results 04/29/2024 8:17 AM EDT Anesthesia Event [facility] [address] [place] [phone] Mallory Silva MD 04/29/2024 7:24 AM EDT - 04/29/2024 11:59 PM EDT Hospital Encounter [facility] [address] [place] [phone] Adrián Hill MD Decandio, Laura, CRNA Spencer, Mark A, MD Colon cancer screening Discharge Disposition: Home or Self Care 04/18/2024 Telephone Adult Medicine [address] [phone] Jo Sheehan MD Results (Echo ) 04/15/2024 7:00 AM EST Ancillary Procedure [facility] 101 300 [facility] [address] [place] [phone] Cardiac murmur from Last 3 Months Surgical History Surgery Date Site/Laterality Comments COLOSTOMY Medical History Medical History Date Comments Diverticulitis DX:Diverticuliti s S/P colostomy (CMS/HCC V24, CMS/HCC V28) Alcohol use Hyperlipidemia Family History Medical History Relation Name Comments Other cancer Mother kidney? Stroke Mother Other cancer Other bone, uncle Colon cancer Neg Hx Relation Name Status Comments Mother Other Social History Tobacco Use Types Packs/Day Years Used Date Smoking Tobacco: Every Day Cigarettes 0.5 40.4 Started: 1979; Last attempted to quit: 2018 Smokeless Tobacco: Never Tobacco Cessation:Ready to Q [...] for your loved ones. For example, child support agent or elderly care for an older adult? [...] 2:45 PM EDT Office Visit Adult Medicine [address] [phone] Jo Sheehan MD [address] [place] [phone] Health Maintenance Due Date Last Done Comments [...] Results * FLEXIBLE SIGMOIDOSCOPY Anesthesia - MAC; [facility] END[facility]COPY (04/29/2024 8:42 AM EDT) [...] office PRN. Narrative 04/29/2024 8:45 AM EDT [facility] Patient Name: George Caldwell Procedure [...] Procedure Code(s): ? --- Professional --- ? 25925, Sigmoidoscopy, flexible; with removal of ? tumor(s), polyp(s), or other lesion(s) by snare ? technique Diagnosis Code(s): ? --- Professional --- ? K57.32, Diverticulitis of large intestine without ? perforation or abscess without bleeding ? D12.6, Benign neoplasm of colon, unspecified CPT copyright 2020 [employer]. All rights reserved. The codes documented in this report are preliminary and upon mold setter review may be revised to meet current compliance requirements. Adrián Hill MD 04/29/2024 8:44:44 AM This report has been signed electronically.Adrián Hill MD Number of Addenda: 0 Note Initiated On: 04/29/2024 8:31 AM Scope In: Scope Out: ? Endoscopy Department at [facility] - [address] [place] [address], ? [place] [address] Procedure Note Adrián Hill MD - 04/29/2024 [facility] GI Patient Name: George Caldwell Procedure [...] without abnormality. Procedure Code(s): --- Professional --- 18556, Sigmoidoscopy, flexible; with removal of tumor(s), polyp(s), or other lesion(s) by snare technique Diagnosis Code(s): --- Professional --- K57.32, Diverticulitis of large intestine without perforation or abscess without bleeding D12.6, Benign neoplasm of colon, unspecified CPT copyright 2020 [employer]. All rights reserved. The codes documented in this report are preliminary and upon mold setter reviewmay be revised to meet current compliance requirements. Adrián Hill MD 04/29/2024 8:44:44 AM This report has been signed electronically.Adrián Hill MD Number of Addenda: 0 Note Initiated On: 04/29/2024 8:31 AM Scope In: Scope Out: Endoscopy Department at [facility] - [address] [place] [phone] IMPRESSION: - Two 6 to 7 mm [...] results. - Return to GI office PRN. Adrián Hill MD GI~PROCEDURE ORDERABLES Final Result * COLONOSCOPY Anesthesia - [facility]; [facility] (04/29/2024 8:42 AM EDT) Anatomical Region Laterality Modality Other 04/29/2024 8:11 AM EDT Impressions 04/29/2024 8:41 AM EDT - Diverticulosis in the sigmoid colon. ? - The examination was otherwise normal. ? - No specimens collected. Recommendation: ?- Perform a flexible sigmoidoscopy today. Narrative 04/29/2024 8:41 AM EDT [facility] Patient Name: George Caldwell Procedure [...] Procedure Code(s): ? --- Professional --- ? 92983, Colonoscopy through stoma; diagnostic, ? including collection of specimen(s) by brushing or ? washing, when performed (separate procedure) Diagnosis Code(s): ? --- Professional --- ? Z12.11, Encounter for screening for malignant neoplasm ? of colon ? K57.30, Diverticulosis of large intestine without ? perforation or abscess without bleeding CPT copyright 2020 [employer]. All rights reserved. The codes documented in this report are preliminary and upon mold setter review may be revised to meet current compliance requirements. Adrián Hill MD 04/29/2024 8:41:08 AM This report has been signed electronically.Adrián Hill MD Number of Addenda: 0 Note Initiated On: 04/29/2024 8:11 AM Scope In: Scope Out: ? Endoscopy Department at [facility] - [address] [place] [address], ? [place] [address] Procedure Note Adrián Hill MD - 04/29/2024 [facility] Patient Name: George Caldwell Procedure [...] without abnormality. Procedure Code(s): --- Professional --- 23117, Colonoscopy through stoma; diagnostic, including collection of specimen(s) by brushing or washing, when performed (separate procedure) Diagnosis Code(s): --- Professional --- Z12.11, Encounter for screening for malignantneoplasm of colon K57.30, Diverticulosis of large intestine without perforation or abscess without bleeding CPT copyright 2020 [employer]. All rights reserved. The codes documented in this report are preliminary and upon mold setter reviewmay be revised to meet current compliance requirements. Adrián Hill MD 04/29/2024 8:41:08 AM This report has been signed electronically.Adrián Hill MD Number of Addenda: 0 Note Initiated On: 04/29/2024 8:11 AM Scope In: Scope Out: Endoscopy Department at [facility] - [address] [place] [phone] IMPRESSION: - Diverticulosis in the sigmoid colon. - The examination was otherwise normal. - No specimens collected. Recommendation: - Perform a flexible sigmoidoscopy today. Adrián Hill MD GI~PROCEDURE ORDERABLES Final Result * Tissue exam (04/29/2024 8:37 AM EDT) Final Diagnosis A. Colon, polyps x2 at 20cm: - Hyperplastic polyps x2. 04/30/2024 8:52 AM EDT [facility] Gross Description A. Colon, polyps [...] Adrián Hill MD LAB PATHOLOGY ORDERABLES Vy donna Result [facility] [address] [place] [address], [place] [phone] * TRANSTHORACIC ECHOCARDIOGRAM (TTE) COMPLETE (04/15/2024 7:29 AM EST) Left Atrium Minor [place] 5.8 cm CV PACS Left Atrium Major [place] 5.5 cm CV PACS LA Area Sys [...] Volume 64 mL CV PACS MV Deceleration [place] 3.5 m/s2 CV PACS E Wave Deceleration [...] Result * Hepatitis C Screening (01/17/2022) Pathologist [facility] Hepatitis C Screening abstracted Result [facility] Historical Provider HEALTH MAINTENANCE Final Result * [...] Most Recently Relevant to Health Maintenance Insurance [facility] Care Teams Chemical Plant Operator Supervisor Relationship Specialty Start Date End Date Jo Sheehan MD [address] [place] [address] PCP - General 06/06/1997
== END 2024-07-15 10:03 | disposition home or self-care (01) ==
PROVIDERS: PCP Internal Medicine; Visit Provider Physician Assistant Surgical
DX: Z51.89 Encounter for other specified aftercare (principal); Z98.890 Other specified postprocedural states
CPT/HCPCS: 99024

== ENCOUNTER → 2024-07-15 09:32 | Outpatient (BNVA) | payer BC, SELFPAY | PROVIDERS: PCP Internal Medicine; Visit Provider Physician Assistant Surgical ==

== ENCOUNTER 2024-08-11 11:18 | Outpatient (AMB) | payer BC, SELFPAY ==
[2024-08-11 11:24] VITALS: BP 133/77; PULSE 93; TEMP 36.8; O2SAT 97; BMI 28.5
--- NOTE | 2024-08-11 11:24 | MHC.OFFVIS ---
Vital Signs 08/11/24 11:24 Height 5 ft 8 in Weight 187 lb 6.287 oz BMI 28.5 BP 133/77 Blood Pressure Location Rt brachial Position Sitting Pulse 93 Pulse Source Pulse Oximeter Temp 98.3 F Temp Source Temporal Artery Scan Pulse Oximetry (%) 97 Oxygen Delivery Method Room Air Intake Visit Reasons: pain, numbness, swelling s/p reversal Intake Note: Pt presents to the office today for c/o pain,numbness, swelling s/p reversal. Pt states this has been going on for several weeks. Allergies No Known Allergies Allergy (Verified 08/11/24 11:27) HPI HPI pain, numbness, swelling s/p reversal: Details: Mr. Caldwell presents with concern over increasing discomfort, numbness and a bulge of his left lower abdomen. He underwent exploratory laparotomy, colostomy reversal, transanal colorectal anastomosis on 05/23/24 for hx of diverticular stricture requiring vicki procedure. He had an uneventful course but did have delayed wound healing of an area of the superior aspect of the midline incision. This has since resolved. He returns today with complaints of increasing swelling of his abdomen on the left lower aspect associated with discomfort and numbess of the incision area that has gotten worse over the past few weeks. He denies overt pain. He thinks the bulge is worse with different positions. He is tolerating a solid diet and moving his bowels without difficulty. 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 [facility] Medical History Arthritis Heartburn Hyperlipidemia Diverticulitis Alcohol dependence Heart murmur Bowel obstruction Surgical History H/O colonoscopy Status post Vicki procedure (01/23/24) Social History Household Members: None Housing: Apartment Are you a primary body care manager to a significant other at home: No Do you presently have visiting nurse or other home services: No Alcohol intake: former Comment: X-RAY NOT INDICATED Patient Tobacco Use Status: Current everyday Tobacco user Tobacco use type: Cigarette Cigarette Packs Per Day: 1 Cigarettes Per Day: 20.0 Years Smoked: 50 e-Cigarette/Vaping Use: Never Used Second Hand Smoke Exposure: No Substance Use Type: Marijuana service: No Review of Systems Const All systems reviewed & are unremarkable except as noted in HPI and below Physical Exam Vital Signs: Last Vital Signs Temp 98.3 F 08/11/24 11:24 Pulse 93 08/11/24 11:24 BP 133/77 08/11/24 11:24 Pulse Ox 97 08/11/24 11:24 Oxygen Delivery Method Room Air 08/11/24 11:24 BMI result Body Mass Index 28.5 Const General: comfortable, no acute distress and alert Orientation/consciousness: patient oriented x3 Resp Effort & Inspection: normal respiratory effort GI Other: midline and left sided old ostomy site well healed, no surrounding erythema or edema there is a protuberance of the LLQ lateral and inferior to midline and old ostomy site, respectively, no change with valsalva area mildly tender Palpation (GI): Soft to palpation and no guarding Percussion: Yes normal to percussion Skin General skin exam: no rashes or lesions noted Neuro General: patient oriented x3 and moves all extremities Assessment & Plan Assessment & Plan (1) History of colostomy reversal: Code(s): Z98.890 - Other specified postprocedural states Category: Surgical Plan 63 year old male who had underwent exploratory laparotomy, colostomy reversal, transanal colorectal anastomosis on 05/23/24 with complaints of increasing swelling, numbness and discomfort of his lower abdomen. There is a bulge of the LLQ but I do not appreciate a hernia with valsalva maneuvers. Unclear if this is just post operative changes versus an incisional hernia. Given his worsening discomfort, will obtain CT scan to evaluate. He does not have any concerning symptoms currently. The numbness is likely post operative and he was reassured this can take several months to improve. He is to follow up in 2 weeks or sooner if he develops concerns. Patient comfortable with plan. He was educated to continue no heavy lifting and reduce strenuous activities if possible. Orders: Orders CT abdomen pelvis w IV con 08/11/24 Z98.890 - Other specified postprocedural states Coding Level of Care Code Est Pt Level 3 (24245) Diagnoses History of colostomy reversal Z98.890 Time Spent (min) 35
--- OUTSIDE RECORDS SUMMARY | 2024-08-11 12:11 | XMS_ITS | Clinical Summary ---
Author Organization [facility] [address] [facility] Address [address] [place] [address] Phone Care Team Providers Care Spring Former Hand Name Role Phone Jo Sheehan MD Primary Care Provider [phone] Allergies No known active allergies Medications polyethylene [...] Care Team Description 06/19/2024 Telephone Adult Medicine [address] [phone] Jo Sheehan MD Referral 06/04/2024 10:30 AM EDT Office Visit Adult Medicine [facility] [address] [place], [place] [phone] Jo Sheehan MD History of colostomy reversal (Primary Dx); Diverticulitis; Other hyperlipidemia; History of colon polyps; Smoker 05/28/2024 Telephone Adult Medicine [facility] [address] [place], [place] [phone] Leeanne Villegas RN hosp f/u from Last 3 Months Surgical History Surgery Date Site/Laterality Comments COLOSTOMY Medical History Medical History Date Comments Diverticulitis DX:Diverticuliti s S/P colostomy ([facility] V24, [facility] V28) Alcohol use Hyperlipidemia Family History Medical History Relation Name Comments Other cancer Mother kidney? Stroke Mother Other cancer Other bone, uncle Colon cancer Neg Hx Relation Name Status Comments Mother Other Social History Tobacco Use Types Packs/Day Years Used Date Smoking Tobacco: Every Day Cigarettes 0.5 40.5 Started: 1979; Last attempted to quit: 2017 [...] for your loved ones. For example, child psychology teacher or elderly care for an older [...] 98 06/04/2024 10:26 AM EDT Temperature 36.3 C (97.4 F) 06/04/2024 10:26 AM EDT Respiratory Rate 20 06/04/2024 10:26 AM EDT [...] 2:45 PM EDT Office Visit Adult Medicine [facility] [address] [place] [phone] Jo Sheehan MD [address] [place] [address] Health Maintenance Due Date Last Done Comments [...] Procedure Name Priority Date/Time Associated Diagnosis Comments COLONOSCOPY Routine 04/29/2024 8:42 AM EDT Colon cancer screening HM HEPATITIS C SCREENING Routine 01/17/2022 LIPID PANEL Routine 01/17/2022 from Last 3 Months or Most Recently Relevant to Health Maintenance Results * COLONOSCOPY Anesthesia - MAC; [facility] END[facility]COPY (04/29/2024 8:42 AM EDT) Anatomical Region Laterality Modality Other 04/29/2024 8:11 AM EDT Impressions 04/29/2024 8:41 AM EDT - Diverticulosis in the sigmoid colon. - The examination was otherwise normal. - No specimens collected. Recommendation: - Perform a flexible sigmoidoscopy today. Narrative 04/29/2024 8:[address] [facility] GI Patient Name: George Caldwell Procedure Date: [...] reviewing the risks and benefits, the patient was deemed in satisfactory condition to undergo the procedure. After I obtained informed consent, the scope was passed under direct vision. Throughout the procedure, the patient's blood pressure, pulse, and oxygen saturations were monitored continuously.The Olympus Pediatric Colonoscope was introduced through the sigmoid colostomy and advanced to the cecum, identified by appendiceal orifice and ileocecal valve. The colonoscopy was performed without difficulty. The patient tolerated the procedure well. The quality of the bowel preparation was good. Findings: A few small-mouthed diverticula were found in the sigmoid colon. The exam was otherwise without abnormality. Procedure Code(s): --- Professional --- 09795, Colonoscopy through stoma; diagnostic, including collection of specimen(s) by brushing or washing, when performed (separate procedure) Diagnosis Code(s): --- Professional --- Z12.11, Encounter for screening for malignant neoplasm of colon K57.30, Diverticulosis of large intestine without perforation or abscess without bleeding CPT copyright 2020 [employer]. All rights reserved. The codes documented in this report are preliminary and upon etcher hand review may be revised to meet current compliance requirements. Adrián Hill MD 04/29/2024 8:41:08 AM This report has been signed electronically.Adrián Hill MD Number of Addenda: 0 Note Initiated On: 04/29/2024 8:11 AM Scope In: Scope Out: Endoscopy Department at [facility] - [address] [place] [phone] Procedure Note Adrián Hill MD - 04/29/2024 [facility] GI Patient Name: George Caldwell Procedure Date: [...] without abnormality. Procedure Code(s): --- Professional --- 36304, Colonoscopy through stoma; diagnostic, including collection of specimen(s) by brushing or washing, when performed (separate procedure) Diagnosis Code(s): --- Professional --- Z12.11, Encounter for screening for malignantneoplasm of colon K57.30, Diverticulosis of large intestine without perforation or abscess without bleeding CPT copyright 2020 [employer]. All rights reserved. The codes documented in this report are preliminary and upon etcher hand reviewmay be revised to meet current compliance requirements. Adrián Hill MD 04/29/2024 8:41:08 AM This report has been signed electronically.Adrián Hill MD Number of Addenda: 0 Note Initiated On: 04/29/2024 8:11 AM Scope In: Scope Out: Endoscopy Department at [facility] - [address] [place] [phone] IMPRESSION: - Diverticulosis in the sigmoid colon. - The examination was otherwise normal. - No specimens collected. Recommendation: - Perform a flexible sigmoidoscopy today. Adrián Hill MD GI~PROCEDURE ORDERABLES Final Result * Hepatitis C Screening (01/17/2022) Pathologist [facility] Hepatitis C Screening abstracted [facility] Provider HEALTH MAINTENANCE Final Result * (ABNORMAL) [...] Most Recently Relevant to Health Maintenance Insurance [facility] Care Teams Spring Former Hand Relationship Specialty Start Date End Date Jo Sheehan MD [address] [place] [address] PCP - General 06/06/1997
== END 2024-08-11 11:43 | disposition home or self-care (01) ==
LOC: HO.HGS 11:19
PROVIDERS: PCP Internal Medicine; Visit Provider Physician Assistant Surgical
DX: Z98.890 Other specified postprocedural states (principal)
CPT/HCPCS: 99024

== ENCOUNTER 2024-10-07 06:57 | Outpatient (REF) | payer BC, SELFPAY ==
--- NOTE | ~2024-10-07 | CT_ITS ---
EXAMINATION: CT ABDOMEN AND PELVIS WITH CONTRAST CLINICAL INFORMATION: Z98.890. Postprocedural. COMPARISON: January 22, 2024. TECHNIQUE: Multidetector volumetric images were obtained from the superior aspect of the liver through the pubic symphysis following administration 85 mL of Omnipaque 350 intravenous contrast. Sagittal and coronal reformatted images were obtained on the technologist's workstation. Oral contrast: Yes This CT examination was performed using dose optimization techniques as appropriate, variously including the following: *Automated exposure control *Adjustment of mA and/or kV according to patient size (this includes techniques or standardized protocols for targeted exams where dose is matched to indication/reason for exam; i.e. extremities or head) *Use of iterative reconstruction technique DLP: 462 mGy centimeter. FINDINGS: LUNG BASES: No gross pulmonary nodules in the included [id number]. LIVER, GALLBLADDER, AND BILIARY TREE: Liver measures 18 cm. No focal mass. Decreased attenuation adjacent to the falciform ligament likely focal fatty infiltration. Main portal veins, hepatic veins and intrahepatic portion of the IVC are patent. Gallbladder is contracted. No pericholecystic fluid collection or gallbladder wall thickening. No extrahepatic biliary ductal dilatation. PANCREAS: Punctate calcifications in the body of the pancreas. No main pancreatic ductal dilatation. No focal mass. No peripancreatic fluid collection. SPLEEN: 8 cm. No mass. ADRENAL GLANDS: No nodular lesions. KIDNEYS AND URETERS: No hydronephrosis. Subcentimeter low-density lesions throughout the renal parenchyma. No gross renal mass. No gross nephrolithiasis. BLADDER: Fluid-filled. GASTROINTESTINAL TRACT: Sutures at the rectosigmoid junction. No enhancing mass at the suture site. Scattered diverticula throughout the left hemicolon. There is a collapsed appearance of the left hemicolon from the mid transverse colon to the descending colon. No intestinal obstruction pattern. There is oral contrast throughout the small and large intestine into the rectum. No pneumatosis intestinalis. Abundant stool in the large intestine. Appendix is normal. No ascites. No pneumoperitoneum.. ABDOMINAL WALL: There is an infraumbilical abdominal wall defect and diastases abdominal rectus muscles resulting in protrusion of nondilated small and large intestine in the suprapubic region. Soft tissue attenuation to the left midline of the umbilical region. LYMPH NODES: No specific prominent less than 10 mm lymph nodes in the mesentery and retroperitoneum. VASCULAR: Mixed plaques throughout the abdominal aorta wall and iliac arteries. There is a 23 mm diameter of the right common iliac artery. No aneurysm or dissection, abdominal aorta. PELVIC VISCERA: Not enlarged. Vascular clips in the inguinal scrotal region, likely post vasectomy.. OSSEOUS STRUCTURES: Multilevel thoracolumbar spondylosis resulting in grade 1 retrolisthesis at L3-4 and L2-3 level. No lytic or blastic lesions. Sclerosis and the sacroiliac joints. Degenerative changes in the symphysis pubis. CT/CT abdomen pelvis w IV con IMPRESSION: Collapsed appearance of the left hemicolon from the mid transverse colon to the sigmoid colon. Underlying neoplasm cannot be excluded. Diverticular disease. Diastases of the infrarenal abdominal wall resulting in eventration nondilated small and large intestine. No intestinal obstruction pattern. Hepatomegaly, mild. Bilateral renal cysts. 23 mm ectasia, right common iliac artery. Multilevel thoracolumbar spondylosis. Sacroiliitis, bilaterally. Fleischner guidelines were followed. Electronically signed by: Champ Paez MD 10/07/2024 10:35 AM EDT
--- OUTSIDE RECORDS SUMMARY | 2024-10-07 07:00 | XMS_ITS | Clinical Summary ---
Author Organization [facility] Address [address] [place] [address] Phone Care Team Providers Care Family Engagement Specialist Name Role Phone Jo Sheehan MD Primary Care Provider [phone] Allergies No known active allergies Medications polyethylene [...] Marijuana use 01/17/2022 Pencilling of stools 01/17/2022 Surgical History Surgery Date Site/Laterality Comments COLOSTOMY Medical History Medical History Date Comments Diverticulitis DX:Diverticuliti s S/P colostomy ([facility] V24, [facility] V28) Alcohol use Hyperlipidemia Family History Medical History Relation Name Comments Other cancer Mother kidney? Stroke Mother Other cancer Other bone, uncle Colon cancer Neg Hx Relation Name Status Comments Mother Other Social History Tobacco Use Types Packs/Day Years Used Date Smoking Tobacco: Every Day Cigarettes 0.5 40.6 Started: 1979; Last attempted to quit: 2017 [...] for your loved ones. For example, child development assistant or elderly care for an older [...] 2:45 PM EDT Office Visit Adult Medicine [facility] [address] [place] [address] Jo Sheehan MD [address] [place] [address] Health Maintenance Due Date Last Done Comments DTaP,Tdap,and Td Vaccines (1 - Tdap) 10/28/1979 Hepatitis A Vaccines (1 of 2 - Risk 2-dose series) 10/28/1979 Pneumococcal Vaccine: 50+ Years (1 of 2 - PCV) 10/28/1979 Zoster Vaccines (1 of 2) 2010 HIV Screening 01/28/2022 Lung Cancer Screening (Low Dose CT) 01/28/2022 COVID-19 Vaccine ( season) 2023 01/05/2023, 12/28/2021, 06/17/2021, Additional history exists Influenza Vaccine (#1) 2024 Social Influencers of Health Screening 05/30/2025 05/30/2024 Cholesterol Screening (Lipid Panel) 01/17/2027 01/17/2022 Colorectal Cancer Screening: Colonoscopy 04/29/2034 04/29/2024 RSV Immunization Adult Patients (1 - 1-dose 75+ series) 10/28/2035 Hepatitis C Screening Completed 01/17/2022 Depression Screening Completed 05/30/2024 HIB Vaccines Aged Out No longer eligi [...] Maintenance Results * COLONOSCOPY Anesthesia - MAC; [facility] ENDOSCOPY (04/29/2024 8:42 AM EDT) Anatomical Region Laterality Modality Other 04/29/2024 8:11 AM EDT Impressions 04/29/2024 8:41 AM EDT - Diverticulosis in the sigmoid colon. - The examination was otherwise normal. - No specimens collected. Recommendation: - Perform a flexible sigmoidoscopy today. Narrative 04/29/2024 8:41 AM T [facility] GI Patient Name: George Caldwell Procedure Date: [...] without abnormality. Procedure Code(s): --- Professional --- 86350, Colonoscopy through stoma; diagnostic, including collection of specimen(s) by brushing or washing, when performed (separate procedure) Diagnosis Code(s): --- Professional --- Z12.11, Encounter for screening for malignant neoplasm of colon K57.30, Diverticulosis of large intestine without perforation or abscess without bleeding CPT copyright 2020 [employer]. All rights reserved. The codes documented in this report are preliminary and upon cot assembler review may be revised to meet current compliance requirements. Adrián Hill MD 04/29/2024 8:41:08 AM This report has been signed electronically.Adrián Hill MD Number of Addenda: 0 Note Initiated On: 04/29/2024 8:11 AM Scope In: Scope Out: Endoscopy Department at [facility] - [address] [place] [phone] Procedure Note Adrián Hill MD - 04/29/2024 [facility] GI Patient Name: George Caldwell Procedure Date: [...] without abnormality. Procedure Code(s): --- Professional --- 02122, Colonoscopy through stoma; diagnostic, including collection of specimen(s) by brushing or washing, when performed (separate procedure) Diagnosis Code(s): --- Professional --- Z12.11, Encounter for screening for malignantneoplasm of colon K57.30, Diverticulosis of large intestine without perforation or abscess without bleeding CPT copyright 2020 [employer]. All rights reserved. The codes documented in this report are preliminary and upon cot assembler reviewmay be revised to meet current compliance requirements. Adráin Hill MD 04/29/2024 8:41:08 AM This report has been signed electronically.Adrián Hill MD Number of Addenda: 0 Note Initiated On: 04/29/2024 8:11 AM Scope In: Scope Out: Endoscopy Department at [facility] - [address] [place] [phone] IMPRESSION: - Diverticulosis in the sigmoid colon. [...] Most Recently Relevant to Health Maintenance Insurance [facility] Care Teams Family Engagement Specialist Relationship Specialty Start Date End Date Jo Sheehan MD [address] [place] [address] [id number] [facility] - General 06/06/1997
--- OUTSIDE RECORDS SUMMARY | 2024-10-07 07:00 | XMS_ITS ---
Author Name [facility] Organization Unknown Care Team Organization Name Specialty Phone Email Start Date End Da eli [facility] 12/20/2021 10/01/2023
[2024-10-07 07:24] LABS: Blood Urea Nitrogen 16 mg/dL (9-16); Estimated Glomerular Filt Rate > 60
[2024-10-07] MEDS: iohexoL 350 MG/ML 100 ML INFUS..BTL 85 ML IV (09:44)
[2024-10-07] MEDS: Barium Sulfate Oral (Mocha) 450 ML ORAL.SUSP 900 ML PO (09:46)
== END 2024-10-07 06:58 | disposition home or self-care (01) ==
LOC: HO.CT 06:57
PROVIDERS: PCP Internal Medicine; Visit Provider Physician Assistant Surgical
DX: Z93.3 Colostomy status (principal); Z98.890 Other specified postprocedural states
CPT/HCPCS: 36415; 74177; 82565; 84520; Q9967

== ENCOUNTER → 2024-10-07 07:02 | Outpatient (BNV) | payer BC, SELFPAY | PROVIDERS: PCP Internal Medicine; Visit Provider Radiology Diagnostic Radiology | DX: N28.1 Cyst of kidney, acquired (principal); K57.90 Diverticulosis of intestine, part unspecified, without perforation or abscess without bleeding | CPT/HCPCS: 74177 ==

== ENCOUNTER 2025-01-14 10:56 | Outpatient (AMB) | payer BC, SELFPAY ==
--- NOTE | 2025-01-14 11:09 | MHC.OFFVIS ---
Vital Signs 01/14/25 11:13 Height 5 ft 8 in Weight 191 lb 12.835 oz BMI 29.2 Pulse 82 Intake Visit Reasons: discuss colostomy issue (jim) pt Intake Note: Patient is seen in office for follow up visit, following colostomy issues. Pt c/o: surgical area is still hard to the touch, bulging, sensitive to the touch, denies n/v/d/c, unsure if it should still feel this way, Is it scar tissue ? since its going to be almost a year since surgery Academic Administrator Required: No Accompanied by: Self / Same As Patient Allergies No Known Allergies Allergy (Verified 08/11/24 11:27) HPI HPI discuss colostomy issue (jim) pt: Details: Patient states that he has continued discomfort and a bulge, tight skin at the site of the colostomy reversal in the lower left quadrant. Was seen in July had CAT scan showing no hernia. Was recommended that we observe this thinking that it might be postsurgical scarring. However patient symptoms have not improved. He denies any other issues has been no changes to the skin that is discoloration. His diet is at baseline. Has no issues with bowel movements. [facility] Medical History Arthritis Heartburn Hyperlipidemia Diverticulitis Alcohol dependence Heart murmur Bowel obstruction Surgical History H/O colonoscopy Status post Valorie procedure (01/23/24) Social History Household Members: None Housing: Apartment Are you a primary child care education coordinator to a significant other at home: No Do you presently have visiting nurse or other home services: No Alcohol intake: former Comment: X-RAY NOT INDICATED Patient Tobacco Use Status: Current everyday Tobacco user Tobacco use type: Cigarette Cigarette Packs Per Day: 1 Cigarettes Per Day: 20.0 Years Smoked: 50 e-Cigarette/Vaping Use: Never Used Second Hand Smoke Exposure: No Substance Use Type: Marijuana service: No Physical Exam Vital Signs: Last Vital Signs Pulse 82 01/14/25 11:13 BMI result Body Mass Index 29.2 GI Other: Large size bulge in the lower left quadrant inferior to colostomy reversal site and lateral to the midline incision. No appreciable hernia with Valsalva, mildly tender to light touch. No cellulitic changes. Inspection: No distended and Yes scar (Colostomy reversal; laparotomy) Palpation (GI): Soft to palpation, Tenderness to palpation present (GI) in the LLQ and no guarding Assessment & Plan Assessment & Plan (1) History of colostomy reversal: Code(s): Z98.890 - Other specified postprocedural states Category: Surgical Plan 64-year-old male s/p Valorie procedure s/p end colostomy reversal in May [address] Townsend returning to the office for concerns with colostomy reversal site, possible hernia. Patient was seen in July by our PA Ovidio who ordered a CAT scan for a bulge in the left lower quadrant inferior to the colostomy reversal site. There was no hernia noted on CT scan, symptoms were thought to be related to postsurgical changes and the plan was to observe for resolution. Patient returns today because his symptoms have been ongoing, they have not been worse but have also not improved. He continues to notice a visible bulge in the left lower quadrant, describes discomfort in the area in his painful when the area is touched even lightly. He is otherwise doing well, no issues with diet or bowel function. Ambulating at baseline occasionally limited by abdominal discomfort related to this issue. On exam there was a visible bulge, but I was unable to appreciate a hernia even when having the patient perform Valsalva. There was no changes to the overlying skin. This area was tender to palpation. I discussed this case with the restrictions Dr. Black who recommended we get an ultrasound to evaluate for an underlying pathology and possible hernia. Ideally we can have the ultrasound performed while the patient performs a Valsalva to better appreciate any hernia. Scheduling were reach out to make an appointment for this ultrasound, instructed patient to make an appointment to be seen with Dr. Black after he has a date for his ultrasound. Further plan pending results of ultrasound. Instructed him to reach out with any concerns or questions prior. I did discuss emergency room precautions if patient is experiencing worsening, uncontrollable pain, intractable nausea or vomiting, inability to pass gas or stool, he understands this. Orders: Orders US abdomen limited Today Z98.890 - Other specified postprocedural states Coding Level of Care Code Est Pt Level 4 (45181) Diagnoses History of colostomy reversal Z98.890 Time Spent (min) 40
[2025-01-14 11:13] VITALS: PULSE 82; BMI 29.2
--- OUTSIDE RECORDS SUMMARY | 2025-01-14 12:51 | XMS_ITS | Clinical Summary ---
Author Organization [facility] [address] [facility] Address [address] [place] [address] Phone Care Team Providers Care Safety Instructor Name Role Phone Jo Sheehan MD Primary Care Provider [phone] Allergies No known active allergies Medications nicotine (NICODERM CQ) 14 mg/[address] 1 patch on the skin 1 (one) time each day at the same time. 30 each 1 11/19/2024 Active omeprazole OTC (PriLOSEC OTC) 20 mg EC tablet Take 1 tablet (20 mg total) by mouth 1 (one) time each day. Do not crush, chew, or split. Active multivitamin with minerals tablet Take 1 tablet by mouth 1 (one) time each day. Active vit C/vit E ac/selenium/gin kgo (MEMORY COMPLEX ORAL) Take 1 tablet by mouth 1 (one) time each day with lunch. Prevagen Active Active Problems Problem Noted Date Diagnosed [...] Encounters Date Type Department Care Team Description 12/18/2024 2:45 PM EST Consult Orthopedic Surgery - [place] [address] [phone] Jed Estes, DPM Dermatophytosis of nail (Primary Dx); Ingrowing nail 12/04/2024 2:00 PM EDT Consult Orthopedics - [address] [phone] Kushal Mccoy PA Effusion of left knee (Primary Dx) 12/04/2024 1:45 PM EDT - 12/04/2024 11:59 PM EDT Hospital Encounter XRAY - [address] [phone] Left knee pain, unspecified chronicity Discharge Disposition: Home or Self Care 11/12/2024 Telephone Adult Medicine [address] [phone] Jo Sheehan MD 2024 2:45 PM EDT Office Visit Adult Medicine [address] [phone] Jo Sheehan MD Left knee pain, unspecified chronicity (Primary Dx); Lung cancer screening declined by patient; Smoker; History of colostomy reversal; Abdominal wall bulge; Onychomycosis from Last 3 Months Surgical History Surgery Date Site/Laterality Comments COLOSTOMY Medical History Medical History Date Comments Diverticulitis DX:Diverticuliti s S/P colostomy ([facility] V24, [facility] V28) Alcohol use Hyperlipidemia Family History Medical History Relation Name Comments Other cancer Mother kidney? Stroke Mother Other cancer Other bone, uncle Colon cancer Neg Hx Relation Name Status Comments Mother Other Social History Tobacco Use Types Packs/Day Years Used Date Smoking Tobacco: Every Day Cigarettes 0.5 40.9 Started: 1979; Last attempted to quit: 2017 [...] for your loved ones. For example, children's counselor or elderly care for an older adult? [...] Date Recorded What is your living situation? Unrecognized valu e 05/30/2024 Interpersonal Safety Answer Date Record ed Physical Abuse Unrecognized value 04/29/2024 Verbal Abuse Unrecognized value 04/29/2024 Sex and Gender Information Value Date Recorded Sex Assigned at Male 04/28/2024 8:46 AM EDT Legal Sex Male 8:10 AM EST Gender Identity Male 04/28/2024 8:46 AM EDT Sexual Orientation Straight 04/29/2024 7: 20 AM EDT Obstetrics History Last Filed Vital Signs Vital Sign Reading Time Taken Comments Blood Pressure 133/69 2024 2:34 PM EDT Pulse 90 2024 2:34 PM EDT Temperature 36.9 C (98.4 F) 2024 2:34 PM EDT Respiratory Rate 16 12/04/2024 2:07 PM EDT Oxygen Saturation 96% 04/29/2024 9:03 AM EDT Inhaled Oxygen Concentration - - Weight 84.4 kg (186 lb) 12/04/2024 2:07 PM EDT Height 170.2 cm (5' 7 ) 12/04/2024 2:07 PM EDT Body Mass Index 29.13 12/04/2024 2:07 PM EDT Plan of Treatment Upcoming Encounters Date Type Department Care Team (Late st Contact Info) Description 02/16/2025 1:30 PM EST Office Visit Orthopedic Surgery - [place] [address] [phone] Jed Estes, DPM [address] [phone] 04/29/2025 9:00 AM EDT Office Visit Adult Medicine [facility] [address] [place] [phone] Jo Sheehan MD [address] [place] [address] Health Maintenance Due Date Last Done Comments DTaP,Tdap,and Td Vaccines (1 - Tdap) 10/28/1979 Hepatitis A Vaccines (1 of 2 - Risk 2-dose series) 10/28/1979 Pneumococcal Vaccine: 50+ Years (1 of 2 - PCV) 10/28/1979 Zoster Vaccines (1 of 2) 2010 HIV Screening 01/28/2022 Lung Cancer Screening (Low Dose CT) 01/28/2022 COVID-19 Vaccine ( season) 2024 01/05/2023, 12/28/2021, 06/17/2021, Additional history exists Influenza [...] Procedure Name Priority Date/Time Associated Diagnosis Comments XR KNEE 4+ VIEWS LEFT Routine 12/04/2024 2:11 PM EDT Left knee pain, unspecified chronicity MI ARTHROCENTESIS/ASPIR ATION/INJECTION MAJOR JOINT/BURSA W/O U/S GUIDANCE Routine 12/04/2024 2:00 PM EDT Effusion of left knee COLONOSCOPY Routine 04/29/2024 8:42 AM EDT Colon cancer screening HM HEPATITIS C SCREENING Routine 01/17/2022 LIPID PANEL Routine 01/17/2022 from Last 3 Months or Most Recently Relevant to Health Maintenance Results * XR Knee 4+ Views Left (12/04/2024 2:11 PM EDT) Anatomical Region Laterality Modality Lower Extremities, Knee [facility] 12/04/2024 9:28 PM EDT Narrative 12/04/2024 9:28 PM EDT Left knee, 4 views. History pain. There is no visible fractures or dislocations. There are mild degenerative changes in the patellofemoral compartment. There is no joint effusion. CONCLUSIONS: Mild degenerative changes in the patellofemoral compartment. -------- FINAL REPORT -------- Dictated By: Gladis Tirado Dictated Date: 12/04/2024 21:28 ET Assigned Physician: Gladis Tirado Reviewed and Electronically Signed By: Gladis Triado Signed Date: 12/04/2024 21:28 ET Workstation ID: [id number] Transcribed By: Self Edit Transcribed Date: 12/04/2024 21:28 ET Procedure Note Gladis Tirado MD - 12/04/2024 Left knee, 4 views. History pain. There is no visible fractures or dislocations. There are mild degenerativechanges in the patellofemoral compartment. There is no joint effusion. CONCLUSIONS: Mild degenerative changes in the patellofemoralcompartment. -------- FINAL REPORT -------- Dictated By: Gladis Tirado Dictated Date: 12/04/2024 21:28 ET Assigned Physician: Gladis Tirado Reviewed and Electronically Signed By: Gladis Tirado Signed Date: 12/04/2024 21:28 ET Workstation ID: [id number] Transcribed By: Self Edit Transcribed Date: 12/04/2024 21:28 ET Kushal PATRICIA IMG XR PROCEDURES Final Result * MI ARTHROCENTESIS/ASPIRATION/INJECTION MAJOR JOINT/BURSA W/O U/S GUIDANCE (12/04/2024 2:00 PM EDT) Narrative Kushal Mccoy PA - 12/04/2024 2:00 PM EDT [facility]LE[facility] [place] 12/04/2024 2:43 PM L Inj/Asp: L knee Indications: pain Details: 22 G needle, anterolateral approach Medications: 4 mL lidocaine 1 %; 80 mg methylPREDNISolone acetate 80 mg/mL Informed Consent: Site: Knee Laterality: Left Relevant images/test results available and reviewed: yes Health status cleared: Yes Procedure/treatment, purpose, treatment alternatives, risks/potential complications and benefits explained: yes Risk/complications/benefits details: Risks include but are not limited to: The treatment may not accomplish the desired results. Additionally bleeding, infection, damage to tendon, nerve, cartilage, muscle; thinning or lightening of the skin in the area of injection; flushing or redness of the face, elevated blood pressure or blood sugar, allergic reaction, rash, increased pain Benefits include relief of inflammation and pain Patient questions answered: yes Patient agrees, verbalizes understanding, and wants to proceed: yes Consent given by: Patient Informed consent discussion completed by Physician/ADRIEL with patient: Verbal Pre-procedure timeout performed: yes us Kushal PATRICIA IN CLINIC/BEDSIDE ORDERABLES Fin al Result * COLONOSCOPY Anesthesia - MAC; [facility] ENDOSCOPY (04/29/2024 8:42 AM EDT) Anatomical Region Laterality Modality Other 04/29/2024 8:11 AM EDT Impressions 04/29/2024 8:41 AM EDT - Diverticulosis in the sigmoid colon. - The examination was otherwise normal. - No specimens collected. Recommendation: - Perform a flexible sigmoidoscopy today. Narrative 04/29/2024 8:41 AM EDT [facility] GI Patient Name: George Caldwell [...] without abnormality. Procedure Code(s): --- Professional --- 04499, Colonoscopy through stoma; diagnostic, including collection of specimen(s) by brushing or washing, when performed (separate procedure) Diagnosis Code(s): --- Professional --- Z12.11, Encounter for screening for malignant neoplasm of colon K57.30, Diverticulosis of large intestine without perforation or abscess without bleeding CPT copyright 2020 [employer]. All rights reserved. The codes documented in this report are preliminary and upon psychiatric registered nurse review may be revised to meet current compliance requirements. Adrián Hill MD 04/29/2024 8:41:08 AM This report has been signed electronically.Adrián Hill MD Number of Addenda: 0 Note Initiated On: 04/29/2024 8:11 AM Scope In: Scope Out: Endoscopy Department at [facility] - [address] [place] [phone] Procedure Note Adrián Hill MD - 04/29/2024 [facility] GI Patient Name: George Caldwell [...] without abnormality. Procedure Code(s): --- Professional --- 04161, Colonoscopy through stoma; diagnostic, including collection of specimen(s) by brushing or washing, when performed (separate procedure) Diagnosis Code(s): --- Professional --- Z12.11, Encounter for screening for malignantneoplasm of colon K57.30, Diverticulosis of large intestine without perforation or abscess without bleeding CPT copyright 2020 [employer]. All rights reserved. The codes documented in this report are preliminary and upon psychiatric registered nurse reviewmay be revised to meet current compliance requirements. Adrián Hill MD 04/29/2024 8:41:08 AM This report has been signed electronically.Adrián Hill MD Number of Addenda: 0 Note Initiated On: 04/29/2024 8:11 AM Scope In: Scope Out: Endoscopy Department at [facility] - [address] [place] [phone] IMPRESSION: - Diverticulosis in the sigmoid colon. - The examination was otherwise normal. - No specimens collected. Recommendation: - Perform a flexible sigmoidoscopy today. Adrián Hill MD GI~PROCEDURE ORDERABLES Final Result * Hepatitis C Screening (01/17/2022) Pathologist [facility] Hepatitis C Screening abstracted Historical Provider HEALTH [...] Most Recently Relevant to Health Maintenance Insurance [facility] [address] [address] [facility] Care Teams Safety Instructor Relationship Specialty Start Date End Date Jo Sheehan MD [address] [place] [address] PCP - General 06/06/1997
== END 2025-01-14 11:25 | disposition home or self-care (01) ==
LOC: HO.HGS 10:56
PROVIDERS: PCP Internal Medicine
DX: Z98.890 Other specified postprocedural states (principal)
CPT/HCPCS: 99214